=== PATIENT | female | born 1945 | race Caucasian/White ===

== ENCOUNTER 2016-07-12 15:22 | Inpatient (IN) ==
[2012-12-30 11:41] VITALS: BP 129/65; TEMP 98.3
[2016-07-12] MEDS ORDERED: ZOFRAN 4 MG/2 ML IVP PRN ×2 (15:46→16:14)
[2016-07-12 16:04] VITALS: BMI 30.9
[2016-07-12 16:11] LABS: BASOPHILS % (AUTO) 0.6 % (0.0-3.0); EOSINOPHILS # (AUTO) 0.1 K/ul (0.0-0.7); EOSINOPHILS % (AUTO) 1.5 % (0.0-7.0); HEMATOCRIT 38.7 % (37.0-47.0); HEMOGLOBIN 12.4 g/dl (12.0-16.0); IMMATURE GRANULOCYTE % (AUTO) 0.2 % (0.0-5.0); LYMPHOCYTES # (AUTO) 1.9 K/uL (0.60-3.4); LYMPHOCYTES % (AUTO) 40.7 (10.0-50.0); MEAN CORPUSCULAR HEMOGLOBIN 28.1 pg (27.0-31.0); MEAN CORPUSCULAR VOLUME 87.8 fl (81.0-99.0); MONOCYTES # (AUTO) 0.4 K/uL (0.4-2.0); MONOCYTES % (AUTO) 8.1 (0-10); NEUTROPHILS # (AUTO) 2.3 K/ul (2.0-6.9); NEUTROPHILS % (AUTO) 48.9; PLATELET COUNT 303 10^3/uL (140-440); RED BLOOD COUNT 4.41 10^6/ul (4.20-5.40); WHITE BLOOD COUNT 4.67 K/ul (4.6-10.2)
[2016-07-12] MEDS: DEXTROSE 5%-1/2NS IV SOLUTION 1,000 ML IV SCH (16:21)
[2016-07-12] MEDS: FLAGYL 500 MG/100 ML 500 MG in PREMIX 100 ML NS 1 BAG IV SCH ×2 (16:22→21:24)
[2016-07-12 16:29] LABS: ALBUMIN 4.2 g/dL (3.4-5.0); ALBUMIN/GLOBULIN RATIO 1.24; ANION GAP 15.7; BILIRUBIN,TOTAL 0.39 mg/dL (0.00-1.20); BUN/CREATININE RATIO 19.8; CALCIUM 9.5 mg/dL (8.2-10.2); CREATININE 1.01 mg/dL (0.60-1.30); POTASSIUM 3.7 mmol/L (3.5-5.10); TOTAL PROTEIN 7.6 g/dL (5.8-8.1)
[2016-07-12] MEDS: PROTONIX IV IVP SCH (16:50)
[2016-07-12] MEDS: TORADOL IVP SCH ×2 (16:52→22:01)
--- NOTE | 2016-07-12 17:20 | DI ---
EXAM: Chest two views HISTORY: Pain FINDINGS: PA and lateral views of the chest were obtained and demonstrates the lungs to be well exp anded and appear clear. There is no evidence of focal infiltrate, consolidate nor concerning pulmon wanda nodule or mass. Heart, pleura, velia, mediastinum, and pulmonary vascular lung markings appeared normal. The osseous structures are without significant abnormality. IMPRESSION: No active cardiac or pulmonary disease. No significant changes compared to the prior s tudy dated 01/20/2015. Again noted is evidence for a prior lower cervical spinal fusion.
--- NOTE | 2016-07-12 17:36 | CT ---
EXAM: CT of the abdomen and pelvis with IV contrast HISTORY: Abdominal pain COMPARISON: 06/17/2016, 01/29/2013 TECHNIQUE: CT of the abdomen and pelvis with IV contrast. FINDINGS: There is mild bilateral lower lobe dependent atelectasis. A 7 - 8 mm left lower lobe subpleural pul monary nodule is seen which is stable dating back to at least 05/28/2008. The liver, spleen, adrenals and pancreas enhance normally. The gallbladder has been removed. Bilate ral renal peripelvic cysts are again seen without significant interval change. A prominent probable phleboliths is again seen adjacent to the right ureter. No abnormal small bowel dilation is seen. Sigmoid diverticulosis is seen. There is mild wall thick ening of the sigmoid colon without significant adjacent fat stranding. The uterus has been removed. There is calcified atherosclerotic plaque of the aorta and iliac arteries. No free air or free fl uid is seen. There is multilevel degenerative disc disease, up to moderate at L5-S1 IMPRESSION: Sigmoid diverticulosis. Mild sigmoid colon wall thickening which may be secondary to underdistensio n. No definite adjacent inflammatory changes. Bilateral renal peripelvic cysts. Status post hysterectomy and cholecystectomy. Other chronic and incidental findings as described above.
[2016-07-12] MEDS: LOVENOX SUBCUT SCH (21:24)
[2016-07-13] MEDS: DEXTROSE 5%-1/2NS IV SOLUTION 1,000 ML IV SCH ×3 (03:13→23:00)
[2016-07-13] MEDS: FLAGYL 500 MG/100 ML 500 MG in PREMIX 100 ML NS 1 BAG IV SCH ×3 (05:05→20:23)
[2016-07-13] MEDS: PRILOSEC PO SCH (05:35)
[2016-07-13 06:50] LABS: BASOPHILS % (AUTO) 0.6 % (0.0-3.0); EOSINOPHILS # (AUTO) 0.1 K/ul (0.0-0.7); EOSINOPHILS % (AUTO) 1.5 % (0.0-7.0); HEMOGLOBIN 10.8 g/dl (12.0-16.0); LYMPHOCYTES # (AUTO) 1.7 K/uL (0.60-3.4); LYMPHOCYTES % (AUTO) 50.9 (10.0-50.0); MEAN CORPUSCULAR HEMOGLOBIN 28.6 pg (27.0-31.0); MEAN CORPUSCULAR HGB CONC 32.7 (31.8-35.4); MEAN CORPUSCULAR VOLUME 87.5 fl (81.0-99.0); MONOCYTES # (AUTO) 0.3 K/uL (0.4-2.0); MONOCYTES % (AUTO) 9.4 (0-10); NEUTROPHILS # (AUTO) 1.3 K/ul (2.0-6.9); NEUTROPHILS % (AUTO) 37.6; PLATELET COUNT 256 10^3/uL (140-440); RED BLOOD COUNT 3.77 10^6/ul (4.20-5.40)
[2016-07-13 07:12] LABS: ALBUMIN 3.5 g/dL (3.4-5.0); ALBUMIN/GLOBULIN RATIO 1.3; ANION GAP 8.7; BILIRUBIN,TOTAL 0.46 mg/dL (0.00-1.20); BUN/CREATININE RATIO 21.87; CALCIUM 8.6 mg/dL (8.2-10.2); CREATININE 0.96 mg/dL (0.60-1.30); POTASSIUM 3.7 mmol/L (3.5-5.10); TOTAL PROTEIN 6.2 g/dL (5.8-8.1)
[2016-07-13] MEDS ORDERED: NON-FORMULARY MEDICATION (Amlodipine Besylate [Amlodipine Besylate] 2.5 MG) PO SCH ×22 (09:00)
[2016-07-13] MEDS ORDERED: NON-FORMULARY MEDICATION (Losartan/Hydrochlorothiazide [Losartan-Hctz 100-25 Mg Tab] 1 EAC PO SCH (09:00)
[2016-07-13] MEDS: PROTONIX IV IVP SCH (09:12)
[2016-07-13] MEDS: GLUCOPHAGE PO SCH ×2 (09:13→09:21)
[2016-07-13] MEDS: ASPIRIN CHEWABLE PO SCH (09:13)
[2016-07-13] MEDS: HYZAAR 50-12.5 MG TAB PO SCH (09:13)
[2016-07-13] MEDS: TORADOL IVP SCH ×2 (09:13→20:27)
[2016-07-13] MEDS: NORVASC PO SCH (09:13)
[2016-07-13] MEDS: NON-FORMULARY MEDICATION (Fenofibrate,Micronized [Fenofibrate] 134 MG) PO SCH ×22 (09:14)
[2016-07-13] MEDS: NON-FORMULARY MEDICATION (Flaxseed Oil [Flaxseed Oil] 1,000 MG) PO SCH (09:14)
[2016-07-13 14:28] LABS: BILIRUBIN,URINE Negative (NEGATIVE); KETONES,URINE Negative (NEGATIVE); LEUKOCYTE ESTERASE ,URINE 1+ (NEGATIVE); NITRITE,URINE Negative (NEGATIVE); PH,URINE 5.5 (5-9); PROTEIN,URINE Negative (NEGATIVE); URINE, BLOOD Negative (NEGATIVE)
[2016-07-13 14:31] LABS: ADD URINE MICROSCOPIC YES
[2016-07-13] MEDS: LOVENOX SUBCUT SCH (21:11)
[2016-07-14 05:16] LABS: BASOPHILS % (AUTO) 0.8 % (0.0-3.0); EOSINOPHILS # (AUTO) 0.1 K/ul (0.0-0.7); EOSINOPHILS % (AUTO) 2.5 % (0.0-7.0); HEMATOCRIT 32.5 % (37.0-47.0); HEMOGLOBIN 10.4 g/dl (12.0-16.0); LYMPHOCYTES # (AUTO) 1.3 K/uL (0.60-3.4); LYMPHOCYTES % (AUTO) 37.3 (10.0-50.0); MEAN CORPUSCULAR VOLUME 87.6 fl (81.0-99.0); MONOCYTES # (AUTO) 0.4 K/uL (0.4-2.0); MONOCYTES % (AUTO) 9.7 (0-10); NEUTROPHILS # (AUTO) 1.8 K/ul (2.0-6.9); NEUTROPHILS % (AUTO) 49.7; PLATELET COUNT 236 10^3/uL (140-440); RED BLOOD COUNT 3.71 10^6/ul (4.20-5.40); WHITE BLOOD COUNT 3.59 K/ul (4.6-10.2)
[2016-07-14] MEDS: FLAGYL 500 MG/100 ML 500 MG in PREMIX 100 ML NS 1 BAG IV SCH ×2 (05:34→12:32)
[2016-07-14] MEDS: PRILOSEC PO SCH (05:34)
[2016-07-14 05:37] LABS: ALBUMIN 3.4 g/dL (3.4-5.0); ALBUMIN/GLOBULIN RATIO 1.42; ANION GAP 11.6; BILIRUBIN,TOTAL 0.42 mg/dL (0.00-1.20); BUN/CREATININE RATIO 13.97; CALCIUM 8.5 mg/dL (8.2-10.2); CREATININE 0.93 mg/dL (0.60-1.30); POTASSIUM 3.6 mmol/L (3.5-5.10); TOTAL PROTEIN 5.8 g/dL (5.8-8.1)
[2016-07-14] MEDS: NON-FORMULARY MEDICATION (Fenofibrate,Micronized [Fenofibrate] 134 MG) PO SCH ×22 (08:39)
[2016-07-14] MEDS: NON-FORMULARY MEDICATION (Flaxseed Oil [Flaxseed Oil] 1,000 MG) PO SCH (08:40)
[2016-07-14] MEDS: ASPIRIN CHEWABLE PO SCH (09:08)
[2016-07-14] MEDS: HYZAAR 50-12.5 MG TAB PO SCH (09:09)
[2016-07-14] MEDS: PROTONIX IV IVP SCH (09:11)
[2016-07-14] MEDS: NORVASC PO SCH (09:11)
[2016-07-14] MEDS: TORADOL IVP SCH ×2 (09:13→20:22)
[2016-07-14] MEDS: DEXTROSE 5%-1/2NS IV SOLUTION 1,000 ML IV SCH (09:55)
[2016-07-14] MEDS: LOVENOX SUBCUT SCH (22:03)
[2016-07-14] MEDS: FLAGYL PO SCH (22:04)
[2016-07-15 05:12] LABS: BASOPHILS % (AUTO) 0.6 % (0.0-3.0); EOSINOPHILS # (AUTO) 0.1 K/ul (0.0-0.7); EOSINOPHILS % (AUTO) 2.6 % (0.0-7.0); HEMATOCRIT 30.8 % (37.0-47.0); HEMOGLOBIN 10.1 g/dl (12.0-16.0); IMMATURE GRANULOCYTE % (AUTO) 0.3 % (0.0-5.0); LYMPHOCYTES # (AUTO) 1.7 K/uL (0.60-3.4); LYMPHOCYTES % (AUTO) 49.7 (10.0-50.0); MEAN CORPUSCULAR HEMOGLOBIN 28.7 pg (27.0-31.0); MEAN CORPUSCULAR HGB CONC 32.8 (31.8-35.4); MEAN CORPUSCULAR VOLUME 87.5 fl (81.0-99.0); MONOCYTES # (AUTO) 0.4 K/uL (0.4-2.0); MONOCYTES % (AUTO) 10.1 (0-10); NEUTROPHILS # (AUTO) 1.3 K/ul (2.0-6.9); NEUTROPHILS % (AUTO) 36.7; PLATELET COUNT 221 10^3/uL (140-440); RED BLOOD COUNT 3.52 10^6/ul (4.20-5.40); WHITE BLOOD COUNT 3.48 K/ul (4.6-10.2)
[2016-07-15] MEDS: PRILOSEC PO SCH (05:34)
[2016-07-15 05:35] LABS: ALBUMIN 3.3 g/dL (3.4-5.0); ALBUMIN/GLOBULIN RATIO 1.32; BILIRUBIN,TOTAL 0.29 mg/dL (0.00-1.20); BUN/CREATININE RATIO 10.81; CALCIUM 8.6 mg/dL (8.2-10.2); CREATININE 1.11 mg/dL (0.60-1.30); TOTAL PROTEIN 5.8 g/dL (5.8-8.1)
[2016-07-15] MEDS: ASPIRIN CHEWABLE PO SCH (09:29)
[2016-07-15] MEDS: GLUCOPHAGE PO SCH (09:30)
[2016-07-15] MEDS: FLAGYL PO SCH (09:30)
[2016-07-15] MEDS: HYZAAR 50-12.5 MG TAB PO SCH (09:31)
[2016-07-15] MEDS: TORADOL IVP SCH (09:32)
[2016-07-15] MEDS: NORVASC PO SCH (09:32)
[2016-07-15] MEDS: PROTONIX IV IVP SCH (09:41)
[2016-07-15] MEDS: NON-FORMULARY MEDICATION (Flaxseed Oil [Flaxseed Oil] 1,000 MG) PO SCH (09:42)
[2016-07-15] MEDS: NON-FORMULARY MEDICATION (Fenofibrate,Micronized [Fenofibrate] 134 MG) PO SCH ×22 (09:42)
[2016-07-15] MEDS ORDERED: ZOFRAN 4 MG/2 ML IVP STA (09:58)
[2016-07-15 11:15] VITALS: BP 112/60; TEMP 97.9
--- NOTE | 2016-07-15 12:12 | CM.DICTOOL ---
ADMISSION: 07/12/16 15:22 DISCHARGE: 07/15/16 DATE OF SERVICE: 07/15/16 FINAL DIAGNOSIS ACUTE DIVERTICULITIS HISTORY OF DIVERTICULITIS (06/20/16 AND 12/2012) HYPERTENSION BRADYCARDIA DYSLIPIDEMIA DM, TYPE 2 GERD ANEMIA HIATAL HERNIA OBESITY, BMI 30 DDD L5-S1 CHOLECYSTECTOMY HYSTERECTOMY C-SPINE FUSION LAST VITALS Temp Pulse Resp BP Pulse Ox 97.9 F 58 L 20 112/60 96 07/15/16 10:00 07/15/16 10:00 07/15/16 10:00 07/15/16 10:00 07/15/16 10:00 ACTIVE MEDICATIONS Amlodipine Besylate (Norvasc) 2.5 mg PO DAILY [facility] Last Admin: 07/15/16 09:32 Dose: 2.5 mg Aspirin (Aspirin Chewable) 81 mg PO DAILYWM [facility] Last Admin: 07/15/16 09:29 Dose: 81 mg HCTZ/Losartan Potassium (Hyzaar 50-12.5 Mg Tab) 2 tab PO DAILY [facility] Last Admin: 07/15/16 09:31 Dose: 2 tab Metformin HCl (Glucophage) 500 mg PO DAILYWM [facility] Last Admin: 07/15/16 09:30 Dose: 500 mg Metronidazole (Flagyl) 500 mg PO TID [facility] Last Admin: 07/15/16 09:30 Dose: 500 mg Fenofibrate,Micronized [Fenofibrate] 134 mg PO DAILY [facility] Last Admin: 07/15/16 09:42 Dose: Not Given Flaxseed Oil [Flaxseed Oil] 1,000 mg PO DAILY [facility] Last Admin: 07/15/16 09:42 Dose: Not Given Omeprazole (Prilosec) 20 mg PO QDAC [facility] Last Admin: 07/15/16 05:34 Dose: 20 mg Ondansetron HCl (Zofran 4 Mg/2 Ml) 4 mg PO Q12H PRN PRN Reason: Nausea / Vomiting Last Admin: 07/14/16 18:29 Dose: 4 mg Pantoprazole Sodium (Protonix) 40 mg PO DAILY [facility] Last Admin: 07/15/16 09:41 Dose: 40 mg DENOTES MEDICATIONS ADDED DURING THIS STAY THAT WILL BE CONTINUED AT DISCHARGE ALLERGIES atorvastatin calcium [From Lipitor] Adverse Reaction (Verified 06/15/16 08:37) cimetidine [From Tagamet] Adverse Reaction (Verified 06/15/16 08:37) cimetidine HCl [From Tagamet] Adverse Reaction (Verified 06/15/16 08:37) ciprofloxacin Adverse Reaction (Verified 06/15/16 08:37) fenofibrate nanocrystallized [From Tricor] Adverse Reaction (Verified 06/15/16 08:37) fenofibrate,micronized [From Tricor] Adverse Reaction (Verified 06/15/16 08:37) gatifloxacin [From Tequin] Adverse Reaction (Verified 06/15/16 08:37) ibuprofen Adverse Reaction (Verified 06/15/16 08:37) minocycline HCl [From Minocin] Adverse Reaction (Verified 06/15/16 08:37) nitrofurantoin macrocrystal [From Macrodantin] Adverse Reaction (Verified 08:37) olmesartan medoxomil [From Benicar] Adverse Reaction (Verified 06/15/16 08:37) Penicillins Adverse Reaction (Verified 06/15/16 08:37) rosuvastatin calcium [From Crestor] Adverse Reaction (Verified 06/15/16 08:37) simvastatin Adverse Reaction (Verified 06/15/16 08:37) Skin Cleanser Combination No.4 [From Minocin] Adverse Reaction (Verified 08:37) Sulfa (Sulfonamide Antibiotics) Adverse Reaction (Verified 06/15/16 08:37) VIBRICILLEN Adverse Reaction (Uncoded 12/27/12 16:15) VICTRIN Adverse Reaction (Uncoded 12/27/12 16:15) NEW PRESCRIPTIONS: FLAGYL 500 MG, TAKE ONE TABLET BY MOUTH THREE TIMES DAILY FOR 5 (FIVE) DAYS ONLY ZOFRAN 4 MG, TAKE ONE TABLET BY MOUTH NEEDED FOR NAUSEA/VOMITING UP TO BUT NO MORE THAN EVERY 12 HOURS SMOKING: NONSMOKER DISEASE SPECIFIC EDUCATION: DIVERTICULITIS DIET ACTIVITY HOME MEDICATIONS NEW PRESCRIPTIONS FOLLOW UP LAB REVIEW: 07/15/16 05:08 07/15/16 05:08 07/15/16 05:08: WBC 3.48 L, RBC 3.52 L, Hgb 10.1 L, Hct 30.8 L, MCV 87.5, MCH 28.7, MCHC 32.8, RDW Coeff of Linda 13.4, Plt Count 221, Immature Gran % (Auto) 0.3, Neut % (Auto) 36.7, Lymph % (Auto) 49.7, Garza % (Auto) 10.1 H, Eos % (Auto ) 2.6, Baso % (Auto) 0.6, Immature Gran # (Auto) 0.0, Neut # 1.3 L, Lymph # 1.7 , Garza # 0.4, Eos # 0.1, Baso # 0.0, Sodium 141, Potassium 4.0, Chloride 107, Carbon Dioxide 26, Anion Gap 12.0, BUN 12, Creatinine 1.11, Estimated GFR (MDRD ) 48.00, BUN/Creatinine Ratio 10.81, Glucose 100, Calcium 8.6, Total Bilirubin 0.29, AST 37, ALT 25, Alkaline Phosphatase 37 L, Total Protein 5.8, Albumin 3.3 L, Globulin 2.5, Albumin/Globulin Ratio 1.32 PLAN: DISCHARGE HOME TODAY. RETURN TO SEE DR. REHMAN IN 7-10 DAYS. PLEASE PHONE TO SCHEDULE YOUR APPOINTMENT [phone] RESUME YOUR HOME MEDICATIONS PER LIST PROVIDED BY THE NURSING STAFF NEW PRESCRIPTIONS: FLAGYL 500 MG, TAKE ONE TABLET BY MOUTH THREE TIMES DAILY FOR 5 (FIVE) DAYS ONLY ZOFRAN 4 MG, TAKE ONE TABLET BY MOUTH NEEDED FOR NAUSEA/VOMITING UP TO BUT NO MORE THAN EVERY 12 HOURS ACTIVITY: GET PLENTY OF REST AT HOME. GRADUALLY INCREASE YOUR ACTIVITY LEVEL ACCORDING TO YOUR TOLERATION DIET: DIVERTICULITIS DIET (SEE INSTRUCTIONS PROVIDED BY THE NURSING STAFF) SUMMARY: THE PATIENT IS ALERT AND ORIENTED X3. SHE CURRENTLY RESIDES AT HOME ALONE. SHE HAS BEEN INDEPENDENT WITH ADL'S. SHE DESIRES TO RETURN HOME AT DISCHARGE. SHE REQUIRES NO ASSISTANCE FOR AMBULATING. SHE HAS NO DME, NO HOME HEALTH OR HOMEMAKING SERVICES. HER SKIN TURGOR IS INTACT AND WITHOUT DECUBITUS ULCERS AT DISCHARGE. SHE IS ABLE TO TOLERATE A REGULAR DIET. SHE IS ABLE TO MOVE HER BOWELS TO HAVE REGULAR BOWEL MOVEMENTS. EMBER REHMAN M.D.
--- NOTE | 2016-07-16 11:59 | HP ---
DATE OF SERVICE: 07/12/16 REASON FOR HOSPITALIZATION: Abdominal pain both lower quadrants times three days. HISTORY OF PRESENT ILLNESS: This is a 70-year-old female with complaint of abdominal pain in both lower quadrants times three days. She has a history of diverticulitis. The pain is moderate to severe with nausea. The patient has not eaten for 24 hours and even hurts to drink water. No fever, no chills. No symptoms of CHF. REVIEW OF SYSTEMS: CONSTITUTIONAL: Fatigue. No fever. HEENT: No sinus drainage, no sore throat. RESPIRATORY: No cough. No hemoptysis. CARDIOVASCULAR: No atypical chest pain for coronary artery disease. No angina , CHF symptoms, palpitations or shortness of breath. GASTROINTESTINAL: Abdominal pain. No melena. No GERD. GENITOURINARY: No hematuria, no polyuria. LABORER VINEYARD: Dizziness. No blackout, no headache, no double vision. MUSCULOSKELETAL: No osteoarthritis pain, no joint swelling. ENDOCRINE: No weight loss, no weight gain. SKIN: Dry. No rash. PSYCHIATRIC: Anxious. No depression, no suicidal thoughts, no homicidal thoughts. PAST MEDICAL HISTORY: 1. Hypertension 2. Hyperglycemia 3. Dyslipidemia 4. Fatty liver 5. Diabetes mellitus Type 2 6. Metabolic syndrome PAST SURGICAL HISTORY: 1. C-spine surgery 2. Gallbladder 3. Hysterectomy 4. Bilateral feet/bunion SOCIAL HISTORY: Nonsmoker. . No alcohol use. Retired. FAMILY HISTORY: Father . Mother . MEDICATIONS: 1. Omeprazole (Prilosec) 20 mg p.o. q.d a.c. 2. Aspirin 81 mg p.o. daily 3. Fenofibrate 134 mg p.o. daily 4. Flaxseed Oil 1000 mg p.o. daily 5. Amlodipine 2.5 mg p.o. daily 6. Metformin 500 mg p.o. daily with meal 7. Losartan/Hydrochlorothiazide 100-25 mg one p.o. daily PHYSICAL EXAMINATION: V/S: Pulse 84, BP 120/60, temperature 98.8, 02 sat 96%, weight 194.4. Height 5' 7", BMI 30.4. GENERAL APPEARANCE: Oriented times three. HEENT: Normal. Skin is dry. NECK: No JVP, no bruits. RESPIRATORY: Lungs are clear. CARDIOVASCULAR: S1, S2, no S3, no murmurs. No cyanosis, clubbing. No ascites. GI/ABDOMEN: No rebound tenderness both lower quadrants. Bowel sounds are active. EXTREMITIES: No edema, pulses +1, equal. LABORER VINEYARD: Deep tendon reflexes, sensory, motor and gait all normal. RECTAL/PELVIC: Colonoscopy 12/13 Dr. Tee, appointment 08/25/16. Pelvic: Partial hysterectomy. Mammogram 07/22 [facility]. Foot care discussed. Colocare refused. ASSESSMENT: 1. ACUTE DIVERTICULITIS 2. HYPERTENSION 3. HYPERGLYCEMIA 4. HISTORY OF DIVERTICULOSIS 5. DYSLIPIDEMIA 6. METABOLIC SYNDROME 7. FATTY LIVER 8. C-SPINE SURGERY 9. DIABETES MELLITUS TYPE 2 PLAN: 1. Admit regular 2. NPO 3. 1000 cc D5 / NS 8 hourly ALISHA 4. CBC, CMP today and q.a.m. 5. CT scan of abdomen and pelvis with contrast today 6. Flagyl 500 mg IV now and q.8hr 7. Toradol 30 mg IV now and q.12hr 8. Zofran 4 mg IV now and 8 hourly for nausea 9. UA and culture and sensitivity 10. EKG today 11. Telemetry times 24 hours 12. Protonix 40 mg IV now and q.a.m. 13. Chest x-ray today 14. Continue medications 15. Lovenox 30 mg SQ at bedtime daily TIME SPENT: More than 70 minutes. MTDD
--- NOTE | 2016-07-17 14:54 | PN ---
DATE OF SERVICE: 07/14/16 SUBJECTIVE: The patient is a 70 year old white female hospitalized with acute diverticulitis. The patient looks a lot better and she is cheerful and able to eat soft diet and had BM no diarrhea. Practically no abdominal pain but is still weak. REVIEW OF SYSTEMS: CONSTITUTIONAL: No night sweats. No fatigue, malaise, lethargy. No fever or chills. HEENT: Eyes: No visual changes. No eye pain. No eye discharge. ENT: No runny nose. No epistaxis. No sinus pain. No sore throat. No odynophagia. No congestion. RESPIRATORY: No cough, no congestion. No hemoptysis. CARDIOVASCULAR: No angina symptoms. No CHF symptoms. No atypical chest pain for CAD. No palpitations. No shortness of breath. GASTROINTESTINAL: No abdominal pain. No nausea or vomiting. No diarrhea or constipation. No hematemesis. No hematochezia. GENITOURINARY: No urgency. No frequency. No dysuria. No hematuria. No obstructive symptoms. No discharge. No pain. No significant abnormal bleeding. MUSCULOSKELETAL: No musculoskeletal pain; no joint swelling. NEUROLOGICAL: No headache. No neck pain. No syncope. No seizures. No dizziness. PSYCHIATRIC: Not anxious. No depression. No suicidal thoughts. No homicidal thoughts. SKIN: No rash. No lesions. No wounds. ENDOCRINE: No unexplained weight loss. No weight gain. HEMATOLOGIC/LYMPHATIC: No anemia. No purpura. No petechiae. No prolonged or excessive bleeding. No palpable lymph nodes. PHYSICAL EXAMINATION: GENERAL: The patient is oriented to time, place and person. VITAL SIGNS: Temperature 97.7, pulse 60, respiratory rate 16, blood pressure 117/66 and pulse ox 96%. HEENT: Head normocephalic, atraumatic. Eyes: Extraocular muscles are intact. Pupils are equal, round and reactive to light and accommodation. Ears: No lesions. Nose appeared normal. Throat: No exudate or erythema. NECK: Supple. No JVD, no carotid bruit. No lymphadenopathy or thyromegaly. LUNGS: Decreased breath sounds but clear to auscultation. Percussion note normal. Chest symmetrical. HEART: S1, S2, no S3. No murmurs. No cyanosis or clubbing. No ascites. Pulses: Dorsalis pedis and posterior tibial pulses +1 to +2 both sides. ABDOMEN: Soft. Nontender. Bowel sounds active. No CVA tenderness. No mass felt. EXTREMITIES: No edema. Full range of motion of all extremities, equal. NEUROLOGIC: No focal deficit. Cranial nerves II through XII are grossly intact. No headache, no double vision or headache. SKIN: Not dry. Intact. Turgor - normal. LYMPHATIC: No palpable lymph nodes/no lymphedema. MUSCULOSKELETAL: Normal joints with no swelling. Muscle tone is normal. LABS: hgb 10.4, hct 32, WBC 3,500 normal differential, creatinine 0.9, BUN 13, potassium 3.6 and glucose 129. ASSESSMENT: 1. Acute diverticulitis, clinically seems to have resolved. PLAN: 1. Continue Flagyl in the form of PO 2. DC IV Fluids and IV Flagyl 3. The patient is going to be regular diet. 4. The patient is advised to walk. CONDITION: Stable TIME SPENT: More than 30 minutes. Plan and coordination of the patient's care discussed in the presence of nurse. ANA M
--- NOTE | 2016-07-18 08:13 | PN ---
DATE OF SERVICE: 07/13/16 SUBJECTIVE: The patient is a 70 year old white female hospitalized with acute diverticulitis type of symptoms. A CT scan didn't show any way of colitis but did had inflammation of the lining of the colon with diverticulosis of sigmoid colon. The patient has been feeling better and the pain in much less then before. The patient has been on Flagyl. REVIEW OF SYSTEMS: CONSTITUTIONAL: No night sweats. No fatigue, malaise, lethargy. No fever or chills. HEENT: Eyes: No visual changes. No eye pain. No eye discharge. ENT: No runny nose. No epistaxis. No sinus pain. No sore throat. No odynophagia. No congestion. RESPIRATORY: No cough, no congestion. No hemoptysis. CARDIOVASCULAR: No angina symptoms. No CHF symptoms. No atypical chest pain for CAD. No palpitations. No shortness of breath. No PND. No orthopnea. GASTROINTESTINAL: No abdominal pain. No nausea or vomiting. No diarrhea or constipation. No hematemesis. No hematochezia. GENITOURINARY: No urgency. No frequency. No dysuria. No hematuria. No obstructive symptoms. No discharge. No pain. No significant abnormal bleeding. MUSCULOSKELETAL: No musculoskeletal pain; no joint swelling. NEUROLOGICAL: No headache. No neck pain. No syncope. No seizures. No dizziness. PSYCHIATRIC: Not anxious. No depression. No suicidal thoughts. No homicidal thoughts. SKIN: No rash. No lesions. No wounds. ENDOCRINE: No unexplained weight loss. No weight gain. HEMATOLOGIC/LYMPHATIC: No anemia. No purpura. No petechiae. No prolonged or excessive bleeding. No palpable lymph nodes. PHYSICAL EXAMINATION: GENERAL: The patient is oriented to time, place and person. VITAL SIGNS: Temperature 96.7, pulse 57, respiratory 20, blood pressure 102/57 and pulse ox 97%. HEENT: Head normocephalic, atraumatic. Eyes: Extraocular muscles are intact. Pupils are equal, round and reactive to light and accommodation. Ears: No lesions. Nose appeared normal. Throat: No exudate or erythema. NECK: Supple. No JVD, no carotid bruit. No lymphadenopathy or thyromegaly. LUNGS: Decreased breath sounds but clear to auscultation. Percussion note normal. Chest symmetrical. HEART: S1, S2, no S3. No murmurs. No cyanosis or clubbing. No ascites. Pulses: Dorsalis pedis and posterior tibial pulses +1 to +2 both sides. ABDOMEN: Soft. Maybe some tenderness in the bilateral right and left lower quadrants. Bowel sounds active. No CVA tenderness. No mass felt. No rebound tenderness. EXTREMITIES: No edema. Full range of motion of all extremities, equal. NEUROLOGIC: No focal deficit. Cranial nerves II through XII are grossly intact. No headache, no double vision or headache. SKIN: Not dry. Intact. Turgor - normal. LYMPHATIC: No palpable lymph nodes/no lymphedema. MUSCULOSKELETAL: Normal joints with no swelling. Muscle tone is normal. LABS: Hgb 10.8, hct 33, WBC 3,400 normal differential, creatinine 0.9, BUN 21 and potassium 3.7. ASSESSMENT: 1. Acute diverticulitis, resolving 2. Dehydration, seems to be resolving PLAN: 1. Continue Flagyl 2. Will advance the diet to full liquid but no dairy products 3. Diet for the Diverticulosis of the colon and diverticulitis discussed. 4. The patient had a BM today CONDITION: Stable. TIME SPENT: More than 30 minutes. Plan and coordination of the patient's care discussed in the presence of nurse. ANA M
--- NOTE | 2016-07-18 12:41 | PN ---
DATE OF SERVICE: SUBJECTIVE: The patient is a 70 year old white female hospitalized with acute diverticulitis. The patient's condition has steadily improved. She is eating regular diet and had normal bowel movement and no abdominal pain. REVIEW OF SYSTEMS: CONSTITUTIONAL: No night sweats. No fatigue, malaise, lethargy. No fever or chills. HEENT: Eyes: No visual changes. No eye pain. No eye discharge. ENT: No runny nose. No epistaxis. No sinus pain. No sore throat. No odynophagia. No congestion. RESPIRATORY: No cough, no congestion. No hemoptysis. CARDIOVASCULAR: No angina symptoms. No CHF symptoms. No atypical chest pain for CAD. No palpitations. No shortness of breath. GASTROINTESTINAL: No abdominal pain. No nausea or vomiting. No diarrhea or constipation. No hematemesis. No hematochezia. Appetite has improved. GENITOURINARY: No urgency. No frequency. No dysuria. No hematuria. No obstructive symptoms. No discharge. No pain. No significant abnormal bleeding. MUSCULOSKELETAL: No musculoskeletal pain; no joint swelling. NEUROLOGICAL: No headache. No neck pain. No syncope. No seizures. No dizziness. PSYCHIATRIC: Not anxious. No depression. No suicidal thoughts. No homicidal thoughts. SKIN: No rash. No lesions. No wounds. ENDOCRINE: No unexplained weight loss. No weight gain. HEMATOLOGIC/LYMPHATIC: No anemia. No purpura. No petechiae. No prolonged or excessive bleeding. No palpable lymph nodes. PHYSICAL EXAMINATION: GENERAL: The patient is oriented to time, place and person. VITAL SIGNS: Temperature 97.6, pulse 56, respiratory rate 18, blood pressure 112/63 and pulse ox 94%. HEENT: Head normocephalic, atraumatic. Eyes: Extraocular muscles are intact. Pupils are equal, round and reactive to light and accommodation. Ears: No lesions. Nose appeared normal. Throat: No exudate or erythema. NECK: Supple. No JVD, no carotid bruit. No lymphadenopathy or thyromegaly. LUNGS:Decreased breath sounds but clear to auscultation. Percussion note normal. Chest symmetrical. HEART: S1, S2, no S3. No murmurs. No cyanosis or clubbing. No ascites. Pulses: Dorsalis pedis and posterior tibial pulses +1 to +2 both sides. ABDOMEN: Soft. Nontender. Bowel sounds active. No CVA tenderness. No mass felt. EXTREMITIES: No edema. Full range of motion of all extremities, equal. NEUROLOGIC: No focal deficit. Cranial nerves II through XII are grossly intact. No headache, no double vision or headache. SKIN: Not dry. Intact. Turgor - normal. LYMPHATIC: No palpable lymph nodes/no lymphedema. MUSCULOSKELETAL: Normal joints with no swelling. Muscle tone is normal. ASSESSMENT: 1. Acute diverticulitis, resolved PLAN: 1. Continue Flagyl 2. Continue the rest of the medication as before 3. Diet for diverticulosis discussed. CONDITION: Stable TIME SPENT: More than 30 minutes. Plan and coordination of the patient's care discussed in the presence of nurse. ANA M
--- NOTE | 2016-07-19 07:07 | DS ---
DATE OF SERVICE: 07/15/16 FINAL DIAGNOSIS: 1. ACUTE DIVERTICULITIS 2. HISTORY OF DIVERTICULITIS (06/20/16 AND 12/24/12) 3. HYPERTENSION 4. BRADYCARDIA 5. DYSLIPIDEMIA 6. DIABETES MELLITUS TYPE 2 7. GERD 8. ANEMIA 9. HIATAL HERNIA 10. OBESITY, BMI 30 11. DDD L5-S1 12. CHOLECYSTECTOMY 13. HYSTERECTOMY 14. C-SPINE FUSION DISCHARGE INSTRUCTIONS: 1. Discharge home today. 2. Followup appointment with Dr. Ramirez in 7 to 10 days. Please phone to schedule appointment. ([phone]). 3. Resume home medications as per list provided by nursing staff. MEDICATIONS AT DISCHARGE: 1. Omeprazole/Prilosec 20 mg p.o. q.d a.c. 2. Aspirin 81 mg p.o. daily 3. Fenofibrate 134 mg p.o. daily 4. Flaxseed Oil 1,000 mg p.o. daily 5. Amlodipine 2.5 mg p.o. daily 6. Metformin 500 mg p.o. daily with meal 7. Losartan/Hydrochlorothiazide one each p.o. daily 8. Metronidazole/Flagyl 500 mg p.o. q.8hr 9. Ondansetron/Zofran 4 mg p.o.b.i.d. p.r.n. NEW PRESCRIPTIONS: 1. Flagyl 500 mg take one tablet by mouth three times daily for 5 days only 2. Zofran 4 mg take one tablet by mouth as needed for nausea/vomiting up to but no more than every 12 hours DIET INSTRUCTIONS: Diverticulitis diet (see instructions provided by the nursing staff) ACTIVITY: Get plenty of rest at home. Gradually increase your activity level according to your toleration. SMOKING: Nonsmoker DISEASE SPECIFIC EDUCATION: 1. Diverticulitis 2. Diet 3. Activity 4. Home medications 5. New prescriptions 6. Follow up HOSPITAL COURSE: 70-year-old white female hospitalized with abdominal pain bilateral, had acute diverticulitis. The patient's condition improved with IV fluids, NPO and Flagyl IV. The patient on the second day was started on full liquid diet without dairy products and then she was advanced to soft and regular diet. The patient' s bowel movements are normal. Appetite is normal. She doesn't have any abdominal pain. She was discharged on Flagyl to be taken p.o. for five days. CONDITION AT TIME OF DISCHARGE: Stable. 5/18She was also explained about the diet in detail. TIME SPENT: More than 60 minutes. MTDD
== END 2016-07-15 13:34 | disposition home or self-care (01) | DRG 392 ==
LOC: MEDSURG B 15:22
PROVIDERS: ADMIT Internal Medicine; ATTEND Internal Medicine
DX: K57.32 Diverticulitis of large intestine without perforation or abscess without bleeding (principal); I10 Essential (primary) hypertension; E78.5 Hyperlipidemia, unspecified; K76.0 Fatty (change of) liver, not elsewhere classified; E11.9 Type 2 diabetes mellitus without complications; E88.81 Metabolic syndrome and other insulin resistance; E86.0 Dehydration; R00.1 Bradycardia, unspecified; K21.9 Gastro-esophageal reflux disease without esophagitis; D64.9 Anemia, unspecified; K44.9 Diaphragmatic hernia without obstruction or gangrene; E66.9 Obesity, unspecified; M51.37 Other intervertebral disc degeneration, lumbosacral region; Z68.30 Body mass index [BMI] 30.0-30.9, adult; Z87.19 Personal history of other diseases of the digestive system; Z79.84 Long term (current) use of oral hypoglycemic drugs; Z79.899 Other long term (current) drug therapy
CPT/HCPCS: 36415; 80053; 81001; 85025; 87081; 93005; 93010

== ENCOUNTER 2016-08-05 03:23 | Inpatient (IN) ==
[2012-12-30 11:41] VITALS: BP 129/65; TEMP 98.3
[2016-08-05] MEDS ORDERED: DEMEROL 25 MG/ML SYRINGE IM STA (04:17)
[2016-08-05] MEDS ORDERED: ZOFRAN 4 MG/2 ML IM STA (04:17)
--- NOTE | 2016-08-05 04:20 | ED.PDOC ---
General ED Provider: Dr. SEVEN CHRISTIANSEN Chief Complaint: Abdominal Pain Stated Complaint: Hurting in the belly for 2 days, has h/o diverticulitis, no fever or chills, not vomiting. Time Seen by Physician: 04:18 Mode of Arrival: Wheelchair Information Source: Patient Primary Care Provider: EMBER REHMAN Nursing and Triage Documentation Reviewed and Agree: Yes GI Complaint Exam - Abdominal Pain Complaint/Exam Onset: Gradual Symptoms Are: Still present Timing: Constant Initial Severity: Moderate Current Severity: Moderate Location of Pain: Discrete Character: Reports: Aching, Throbbing Aggravating: Reports: Movement, Food, Deep breaths, Position Alleviating: Reports: None Associated Signs and Symptoms: Reports: Constipation, Nausea, Decreased activity. Denies: Diaphoresis, Fever, Cough, Chest pain, Dizziness, Back pain, Blood in stool, Dysuria, Urinary frequency, Decreased urine output, Decreased appetite, Vaginal bleeding, Vaginal discharge, Vomiting, Diarrhea, Sore throat Related History: Reports: Similar episode AAA Risk Factors: Reports: None Cardiac Risk Factors: Reports: None Ectopic Risk Factors: Reports: None Ovarian Torsion Risk Factors: Reports: None Surgical Obstruction Risk Factors: Reports: None Related Surgical History: Reports: None Patient Rh Status: Unknown Abdominal Findings: Present: Abdominal distention. Absent: Pulsatile mass, Unequal femoral pulses, Rebound tenderness, Peritoneal signs, McBurney's Point tender Differential Diagnoses: Diverticulitis, UTI Review of Systems - Review Of Systems Constitutional: Reports: No symptoms Eyes: Reports: No symptoms Ears, Nose, Mouth, Throat: Reports: No symptoms Respiratory: Reports: No symptoms Cardiac: Reports: No symptoms GI: Reports: Abdomen distended, Abdominal pain, Nausea : Reports: No symptoms Musculoskeletal: Reports: No symptoms Skin: Reports: No symptoms Neurological: Reports: No symptoms Endocrine: Reports: No symptoms Hematologic/Lymphatic: Reports: No symptoms All Other Systems: Reviewed and Negative Past Medical History - Past Medical History Previously Healthy: No Endocrine: Reports: Dyslipidemia Cardiovascular: Reports: Hypertension Respiratory: Reports: None Hematological: Reports: Anemia Gastrointestinal: Reports: GERD, Diverticulitis Genitourinary: Reports: None Neuro/Psych: Reports: None Musculoskeletal: Reports: Arthritis, Back Pain Cancer: Reports: None Last Menstrual Period: PT HAS HAD A HYSTERECTOMY - Surgical History General Surgical History: Reports: None - Family History Family History: Reports: None - Social History Smoking Status: Former smoker Hx Substance Use: No Alcohol Screening: None - Immunizations Tetanus Shot up to Date: No Physical Exam - Physical Exam Appearance: Ill-appearing, Obese Pain Distress: Moderate Eyes: FAVIOLA, EOMI, Conjunctiva clear ENT: Ears normal, Nose normal, Oropharynx normal Respiratory: Airway patent, Breath sounds clear, Breath sounds equal, Respirations nonlabored Cardiovascular: RRR, Pulses normal, No rub, No murmur GI/: Soft, Tender, Bowel sounds hypoactive Musculoskeletal: Normal strength, ROM intact, No edema, No calf tenderness Skin: Warm, Dry, Normal color Neurological: Sensation intact, Motor intact, Reflexes intact, Cranial nerves intact, Alert, Oriented Psychiatric: Affect appropriate, Mood appropriate Interpretation - Radiology Interpretation Radiology Interpretation By: Radiologist Radiology Results: Positive Exam Interpreted: CT Scan Critical Care Note - Critical Care Note Total Time (mins): 0 Course - Course Hematology/Chemistry: 08/05/16 04:44 08/05/16 04:44 Orders, Labs, Meds: Lab Review 08/05/16 08/05/16 04:40 04:44 WBC 8.49 RBC 4.11 L Hgb 11.9 L Hct 35.3 L MCV 85.9 MCH 29.0 MCHC 33.7 RDW Coeff of Linda 13.4 Plt Count 286 Immature Gran % (Auto) 0.4 Neut % (Auto) 72.8 Lymph % (Auto) 18.1 [place] % (Auto) 7.8 Eos % (Auto) 0.5 Baso % (Auto) 0.4 Immature Gran # (Auto) 0.0 Neut # 6.2 Lymph # 1.5 [place] # 0.7 Eos # 0.0 Baso # 0.0 Sodium 141 Potassium 3.7 Chloride 105 Carbon Dioxide 25 Anion Gap 14.7 BUN 17 Creatinine 0.89 Estimated GFR (MDRD) 62.00 BUN/Creatinine Ratio 19.10 Glucose 138 H Calcium 9.5 Total Bilirubin 0.64 AST 29 ALT 22 Alkaline Phosphatase 46 L Total Protein 7.0 Albumin 3.8 Globulin 3.2 Albumin/Globulin Ratio 1.19 Urine Color Yellow Urine Clarity Clear Urine pH 5.5 Ur Specific [place] 1.020 Urine Protein Negative Urine Glucose (UA) Negative Urine Ketones Negative Urine Blood Trace-intact Urine Nitrite Negative Urine Bilirubin Negative Urine Urobilinogen 0.2 Ur Leukocyte Esterase Trace Urine Microscopic RBC 0-2 Urine Microscopic WBC 0-2 Ur Squamous Epith Cells 2-5 Urine Bacteria Trace Orders Category Date Time Status CBC W/ AUTO DIFF Stat LAB 08/05/16 04:44 Completed COMPREHENSIVE METABOLIC PANEL Stat LAB 08/05/16 04:44 Completed URINALYSIS C & S IF INDICATED Stat LAB 08/05/16 04:40 Completed Meperidine HCl/Pf [Demerol 25 mg/ml Syringe] MEDS 08/05/16 04:17 Discontinued 25 mg IM ONCE STA Ondansetron HCl/Pf [Zofran 4 mg/2 ml] MEDS 08/05/16 04:17 Discontinued 4 mg IM ONCE STA CT ABDOMEN/PELVIS WO CONTRAST Stat RADS 08/05/16 04:17 Completed Medications Discontinued Medications Generic Name Dose Route Start Last Admin Trade Name Freq PRN Reason Stop Dose Admin Meperidine HCl 25 mg 08/05/16 04:17 08/05/16 04:24 Demerol 25 Mg/Ml Syringe IM 08/05/16 04:18 25 mg ONCE STA Administration Ondansetron HCl 4 mg 08/05/16 04:17 08/05/16 04:24 Zofran 4 Mg/2 Ml IM 08/05/16 04:18 4 mg ONCE STA Administration Vital Signs: Temp Pulse Resp BP Pulse Ox 08/05/16 03:24 97.6 F 92 H 18 132/73 95 Departure - Departure Time of Disposition: 06:31 Disposition: ADMITTED INPATIENT Discharge Problem: Diverticulitis Qualifiers: Diverticulitis site: large intestine Diverticulitis bleeding: without bleeding Diverticulitis complication: without perforation or abscess Qualifier Code: ( K57.32) Diverticulitis of large intestine without perforation or abscess without bleeding Diverticulitis Qualifiers: Diverticulitis site: large intestine Diverticulitis bleeding: without bleeding Diverticulitis complication: without perforation or abscess Qualifier Code: ( K57.32) Diverticulitis of large intestine without perforation or abscess without bleeding Instructions: Diverticulitis (ED) Condition: Stable Pt referred to PMD for follow-up: Yes Allergies/Adverse Reactions: Allergies atorvastatin calcium [From Lipitor] Adverse Reaction (Verified 08/05/16 03:40) cephalexin [From Keflex] Adverse Reaction (Verified 08/05/16 03:40) cimetidine [From Tagamet] Adverse Reaction (Verified 08/05/16 03:40) cimetidine HCl [From Tagamet] Adverse Reaction (Verified 08/05/16 03:40) ciprofloxacin Adverse Reaction (Verified 08/05/16 03:40) fenofibrate nanocrystallized [From Tricor] Adverse Reaction (Verified 08/05/16 03:40) fenofibrate,micronized [From Tricor] Adverse Reaction (Verified 08/05/16 03:40) gatifloxacin [From Tequin] Adverse Reaction (Verified 08/05/16 03:40) ibuprofen Adverse Reaction (Verified 08/05/16 03:40) minocycline HCl [From Minocin] Adverse Reaction (Verified 08/05/16 03:40) nitrofurantoin macrocrystal [From Macrodantin] Adverse Reaction (Verified 03:40) olmesartan [From Benicar] Adverse Reaction (Verified 08/05/16 03:40) olmesartan medoxomil [From Benicar] Adverse Reaction (Verified 08/05/16 03:40) Penicillins Adverse Reaction (Verified 08/05/16 03:40) rosuvastatin calcium [From Crestor] Adverse Reaction (Verified 08/05/16 03:40) simvastatin Adverse Reaction (Verified 08/05/16 03:40) Skin Cleanser Combination No.4 [From Minocin] Adverse Reaction (Verified 03:40) Sulfa (Sulfonamide Antibiotics) Adverse Reaction (Verified 08/05/16 03:40) VIBRICILLEN Adverse Reaction (Uncoded 08/05/16 03:40) VICTRIN Adverse Reaction (Uncoded 08/05/16 03:40) Home Medications: Ambulatory Orders Aspirin [Aspirin Chewable] 81 mg PO DAILY 12/27/12 Fenofibrate,Micronized [Fenofibrate] 134 mg PO DAILY 12/27/12 Omeprazole [Prilosec] 20 mg PO QDAC 12/27/12 Amlodipine Besylate 2.5 mg PO DAILY 06/15/16 Flaxseed Oil 1,000 mg PO DAILY 06/15/16 Metformin HCl [Glucophage] 500 mg PO DAILYWM 06/15/16 Losartan/Hydrochlorothiazide [Losartan-Hctz 100-25 mg Tab] 1 each PO DAILY #30 tablet 06/18/16 Metronidazole [Flagyl] 500 mg PO Q8HR #15 tablet 07/15/16 Ondansetron HCl [Zofran Tab] 4 mg PO BID PRN #10 tablet 07/15/16 Disposition Discussed With: Patient
[2016-08-05 04:46] LABS: BASOPHILS % (AUTO) 0.4 % (0.0-3.0); EOSINOPHILS % (AUTO) 0.5 % (0.0-7.0); HEMATOCRIT 35.3 % (37.0-47.0); HEMOGLOBIN 11.9 g/dl (12.0-16.0); IMMATURE GRANULOCYTE % (AUTO) 0.4 % (0.0-5.0); LYMPHOCYTES # (AUTO) 1.5 K/uL (0.60-3.4); LYMPHOCYTES % (AUTO) 18.1 (10.0-50.0); MEAN CORPUSCULAR HGB CONC 33.7 (31.8-35.4); MEAN CORPUSCULAR VOLUME 85.9 fl (81.0-99.0); MONOCYTES # (AUTO) 0.7 K/uL (0.4-2.0); MONOCYTES % (AUTO) 7.8 (0-10); NEUTROPHILS # (AUTO) 6.2 K/ul (2.0-6.9); NEUTROPHILS % (AUTO) 72.8; PLATELET COUNT 286 10^3/uL (140-440); RED BLOOD COUNT 4.11 10^6/ul (4.20-5.40); WHITE BLOOD COUNT 8.49 K/ul (4.6-10.2)
[2016-08-05 04:53] LABS: BILIRUBIN,URINE Negative (NEGATIVE); KETONES,URINE Negative (NEGATIVE); LEUKOCYTE ESTERASE ,URINE Trace (NEGATIVE); NITRITE,URINE Negative (NEGATIVE); PH,URINE 5.5 (5-9); PROTEIN,URINE Negative (NEGATIVE); URINE, BLOOD Trace-intact (NEGATIVE)
[2016-08-05 04:56] LABS: ADD URINE MICROSCOPIC YES; BACTERIA,URINE TRACE (NOT PRESENT)
--- NOTE | 2016-08-05 04:57 | CT ---
Exam: CT of the abdomen and pelvis without contrast History: Abdominal pain Technique: [address] of the abdomen and pelvis without intravascular contrast FINDINGS: There is a 7.5 mm nodule of the left lung base also seen on distant prior studies, benign . The lung bases are clear otherwise. Prior cholecystectomy. Bilateral parapelvic renal cysts. T he kidneys and collecting system are unremarkable otherwise. The appendix is normal. Bowel loops de monstrate normal caliber. No inflamatory change seen in the mesentery or retroperitoneum. Atheroscle rotic calcification of the aorta without aneurysm. Colonic diverticulosis of the sigmoid colon. There is focal inflammation with central offending div erticula. No abscess cavity or free intraperitoneal gas. Short segment sigmoid colonic thickening. Prior hysterectomy. Normal urinary bladder. Impression: 1. Colonic diverticulosis of the sigmoid with mild adjacent inflammation and central offending dive rticula consistent with acute diverticulitis. No free intraperitoneal gas or abscess. New finding compared with 07/12/2016. 2. Stable left lung base nodule compared with 01/29/2013, benign.
[2016-08-05 05:07] LABS: ALBUMIN 3.8 g/dL (3.4-5.0); ALBUMIN/GLOBULIN RATIO 1.19; ANION GAP 14.7; BILIRUBIN,TOTAL 0.64 mg/dL (0.00-1.20); BUN/CREATININE RATIO 19.1; CALCIUM 9.5 mg/dL (8.2-10.2); CREATININE 0.89 mg/dL (0.60-1.30); POTASSIUM 3.7 mmol/L (3.5-5.10)
[2016-08-05] MEDS ORDERED: TYLENOL PO PRN (06:32)
[2016-08-05] MEDS ORDERED: MORPHINE 2 MG/ML SYRINGE IVP PRN (06:34)
[2016-08-05] MEDS ORDERED: DEXTROSE 5%-NS IV SOLUTION 1,000 ML IV STA (06:38)
[2016-08-05] MEDS ORDERED: SODIUM CHLORIDE 1,000 ML IV SCH (07:00)
[2016-08-05 08:13] VITALS: BMI 29.2
[2016-08-05] MEDS: HYZAAR 50-12.5 MG TAB PO SCH (08:23)
[2016-08-05] MEDS: LOVENOX SUBCUT SCH (08:23)
[2016-08-05] MEDS: TRIGLIDE PO SCH (08:23)
[2016-08-05] MEDS: NORVASC PO SCH (08:24)
[2016-08-05] MEDS: ASPIRIN CHEWABLE PO SCH (08:24)
[2016-08-05] MEDS: D5W IV SCH ×2 (08:25→21:21)
[2016-08-05] MEDS: CIPRO IV SCH ×2 (08:25→21:21)
[2016-08-05] MEDS: ZOFRAN 4 MG/2 ML IVP PRN (08:39)
[2016-08-05] MEDS: NON-FORMULARY MEDICATION (Flaxseed Oil [Flaxseed Oil] 1,000 MG) PO SCH (08:43)
[2016-08-05] MEDS ORDERED: NON-FORMULARY MEDICATION (Fenofibrate,Micronized [Fenofibrate] 134 MG) PO SCH ×22 (09:00)
[2016-08-05] MEDS ORDERED: NON-FORMULARY MEDICATION (Amlodipine Besylate [Amlodipine Besylate] 2.5 MG) PO SCH ×22 (09:00)
[2016-08-05] MEDS ORDERED: NON-FORMULARY MEDICATION (Losartan/Hydrochlorothiazide [Losartan-Hctz 100-25 Mg Tab] 1 EAC PO SCH (09:00)
[2016-08-05] MEDS: FLAGYL 500 MG/100 ML 500 MG in PREMIX 100 ML NS 1 BAG IV SCH ×2 (12:50→20:07)
[2016-08-05 13:38] LABS: CREATINE KINASE 33 U/L
--- NOTE | 2016-08-05 13:56 | HP ---
DATE OF SERVICE: 08/05/16 REASON FOR HOSPITALIZATION: Diverticulitis HISTORY OF PRESENT ILLNESS: This 70 year old WHITE/ F was hospitalized 08/05/16. The patient is hospitalized through the ER with left lower quadrant suprapubic area pain of 2 days duration. Meals made her uncomfortable with a queasy feeling. No vomiting. No diarrhea. The patient has a history of diverticulitis, recurrent with several hospitalizations in the recent past. REVIEW OF SYSTEMS: CONSTITUTIONAL: No night sweats. No fatigue, malaise, lethargy. No fever or chills. HEENT: Eyes: No visual changes. No eye pain. No eye discharge. ENT: No runny nose. No epistaxis. No sinus pain. No sore throat. No odynophagia. No ear pain. No congestion. RESPIRATORY: No cough, no congestion. No hemoptysis. CARDIOVASCULAR: No angina symptoms. No CHF symptoms. No atypical chest pain for CAD. No palpitations. No shortness of breath. GASTROINTESTINAL: No appetite. Abdominal pain, left lower quadrant with no hematemesis. No nausea or vomiting. No diarrhea or constipation. No hematemesis. No hematochezia. GENITOURINARY: No urgency. No frequency. No dysuria. No hematuria. No obstructive symptoms. No discharge. No pain. No significant abnormal bleeding. MUSCULOSKELETAL: No musculoskeletal pain. No joint swelling. NEUROLOGICAL: No headache. No neck pain. No syncope. No seizures. No dizziness. PSYCHIATRIC: Not anxious. No depression. No suicidal thoughts. No homicidal thoughts. SKIN: No rash. No lesions. No wounds. ENDOCRINE: No unexplained weight loss. No weight gain. HEMATOLOGIC/LYMPHATIC: No anemia. No purpura. No petechiae. No prolonged or excessive bleeding. No palpable lymph nodes. PERSONAL/FAMILY/SOCIAL HISTORY: lives by herself with help of family. Nonsmoker. No alcohol use. Independent with all activities of daily living. Family History: Father and mother both . PAST MEDICAL/SURGICAL PROBLEMS: 1. Hypertension 2. Diverticulosis of the colon with history of acute diverticulitis, frequent 3. GERD 4. Obesity, BMI of 30 5. Diabetes mellitus Type 2 6. Dyslipidemia 7. Anemia 8. Fatty liver 9. DDD spine PAST SURGICAL HISTORY: 1. C-spine fusion 2. Cholecystectomy 3. Hysterectomy 4. Bilateral feet/bunion MEDICATIONS: (HOME) 1. Omeprazole 20 mg p.o. q.d a.c. 2. Aspirin 81 mg p.o. daily 3. Fenofibrate 134 mg p.o. daily 4. Flaxseed Oil 1000 mg p.o. daily 5. Amlodipine 2.5 mg p.o. daily 6. Metformin 500 mg p.o. daily with meal 7. Losartan/Hydrochlorothiazide 100-25 one each p.o. daily 8. Metronidazole (Flagyl) 500 mg p.o. q. 8hr 9. Ondansetron/Zofran 4 mg p.o. b.i.d. p.r.n. ALLERGIES: MINOCYCLINE (FROM MINOCIN), NITROFURANTOIN, CIMETIDINE (FROM TAGAMET ), ATORVASTATIN (FROM LIPITOR), FENOFIBRATE (FROM TRICOR), OLMESARTAN (FROM BENICAR), ROSUVASTATIN (FROM CRESTOR), SKIN CLEANSER COMBINATION #4 (FROM MINOCIN), PENICILLINS, SULFA (SULFONAMIDE ANTIBIOTICS), IBUPROPFEN, CEPHALEXIN ( FROM KEFLEX), CIPROFLOXACIN, SIMVASTATIN, GATIFLOXACIN (FROM TEQUIN), VIBRICILLEN, VICTRIN PHYSICAL EXAMINATION: GENERAL: The patient is lying in bed in no distress. VITAL SIGNS: Temperature 97.6 F, Pulse 92, Respiratory Rate 18, BP 132/73, Pulse Ox 95% HEENT: Head normocephalic, atraumatic. Eyes: Extraocular muscles are intact. Pupils are equal, round and reactive to light and accommodation. Ears: No lesions. Nose appeared normal. Throat: No exudate or erythema. NECK: Supple. No JVD, no carotid bruit. No lymphadenopathy or thyromegaly. LUNGS: Clear to auscultation. Percussion note normal. Chest symmetrical. HEART: S1, S2, no S3. No murmurs. No cyanosis or clubbing. No ascites. Pulses: Dorsalis pedis and posterior tibial pulses +1 to +2 both sides. ABDOMEN: Soft. Mild tenderness left lower quadrant otherwise negative. Bowel sounds active. No CVA tenderness. No mass felt. EXTREMITIES: No edema. Full range of motion of all extremities, equal. NEUROLOGIC: No focal deficit. Cranial nerves II through XII are grossly intact. No headache, no double vision or headache. SKIN: Not dry. Intact. Turgor - normal. LYMPHATIC: No palpable lymph nodes/no lymphedema. MUSCULOSKELETAL: Normal joints with no swelling. Muscle tone is normal. LAB/X-RAYS: WBC 8.49, RBC 4.11, Hgb 11.9, Hct 35.3. Platelet count 286. Chemistries: Sodium 141, potassium 3.7, chloride 105, carbon dioxide 25, BUN 17, creatinine 0.89, glucose 138, AST 29, ALT 22, alkaline phosphatase 46. UA showed trace of blood, leukocyte esterase and bacteria. CT scan of the abdomen and pelvis without contrast revealed: Colonic diverticulosis of the sigmoid with mild adjacent inflammation and central offending diverticula consistent with acute diverticulitis. No free intraperitoneal gas or abscess. ASSESSMENT: 1. Acute diverticulitis with diverticulosis of the colon, recurrent. 2. Hypertension. 3. Dyslipidemia. 4. Diabetes mellitus. 5. Diverticulosis of the colon, history of. 6. Diverticulitis of the colon, history of. 7. Obesity, BMI of 30. PLAN: 1. Zofran 4 mg 2. Cipro IV 3. IV Flagyl 4. IV fluids, D5 at 100 mL/hr 5. Labs daily 6. No dairy products 7. Telemetry EDUCATION CARRIED OUT ABOUT: Medications and plan of care discussed with the patient. CT scan of the abdomen reviewed showed acute diverticulitis. The patient was explained about diverticulosis and recurrent GI diverticulitis. The patient will have GI and surgical consultation after diverticulitis resolved. In the past, the patient has not considered any surgical referral. CONDITION: STABLE TIME SPENT: More than 70 minutes. SCRIBED BY: Ashish FRANKLIN scribed while in presence of service performed by Dr. EMBER REHMAN on 08/05/16 ([id number]) [facility]
[2016-08-05 21:16] LABS: CREATINE KINASE 29 U/L
[2016-08-05] MEDS: DEXTROSE 5%-NS IV SOLUTION 1,000 ML IV SCH (21:21)
[2016-08-06] MEDS: FLAGYL 500 MG/100 ML 500 MG in PREMIX 100 ML NS 1 BAG IV SCH ×3 (04:00→21:06)
[2016-08-06 05:03] LABS: BASOPHILS % (AUTO) 0.4 % (0.0-3.0); EOSINOPHILS # (AUTO) 0.1 K/ul (0.0-0.7); HEMATOCRIT 31.4 % (37.0-47.0); HEMOGLOBIN 10.6 g/dl (12.0-16.0); IMMATURE GRANULOCYTE % (AUTO) 0.2 % (0.0-5.0); LYMPHOCYTES # (AUTO) 1.5 K/uL (0.60-3.4); LYMPHOCYTES % (AUTO) 30.2 (10.0-50.0); MEAN CORPUSCULAR HEMOGLOBIN 29.3 pg (27.0-31.0); MEAN CORPUSCULAR HGB CONC 33.8 (31.8-35.4); MEAN CORPUSCULAR VOLUME 86.7 fl (81.0-99.0); MONOCYTES # (AUTO) 0.6 K/uL (0.4-2.0); MONOCYTES % (AUTO) 12.5 (0-10); NEUTROPHILS # (AUTO) 2.7 K/ul (2.0-6.9); NEUTROPHILS % (AUTO) 55.7; PLATELET COUNT 245 10^3/uL (140-440); RED BLOOD COUNT 3.62 10^6/ul (4.20-5.40)
[2016-08-06 05:16] LABS: ALBUMIN 3.3 g/dL (3.4-5.0); ALBUMIN/GLOBULIN RATIO 1.1; ANION GAP 13.4; BILIRUBIN,TOTAL 0.89 mg/dL (0.00-1.20); BUN/CREATININE RATIO 11.11; CALCIUM 8.7 mg/dL (8.2-10.2); CREATININE 0.9 mg/dL (0.60-1.30); POTASSIUM 3.4 mmol/L (3.5-5.10); TOTAL PROTEIN 6.3 g/dL (5.8-8.1)
[2016-08-06] MEDS: PRILOSEC PO SCH (05:34)
[2016-08-06] MEDS ORDERED: HUMULIN R SUBCUT PRN (08:01)
[2016-08-06] MEDS ORDERED: DULCOLAX RC STA (08:54)
[2016-08-06] MEDS: ASPIRIN CHEWABLE PO SCH (09:41)
[2016-08-06] MEDS: D5W IV SCH ×2 (09:42→20:02)
[2016-08-06] MEDS: LOVENOX SUBCUT SCH (09:42)
[2016-08-06] MEDS: CIPRO IV SCH ×2 (09:42→20:02)
[2016-08-06] MEDS: HYZAAR 50-12.5 MG TAB PO SCH (09:42)
[2016-08-06] MEDS: NORVASC PO SCH (09:43)
[2016-08-06] MEDS: [UNRECOGNIZED DRUG - MIXTURE] IV SCH (09:43)
[2016-08-06] MEDS: TRIGLIDE PO SCH (09:43)
[2016-08-06] MEDS: DEXTROSE 5%-NS IV SOLUTION 1,000 ML IV SCH (09:44)
[2016-08-06] MEDS: NON-FORMULARY MEDICATION (Flaxseed Oil [Flaxseed Oil] 1,000 MG) PO SCH (09:44)
[2016-08-06] MEDS: ZOFRAN 4 MG/2 ML IVP PRN (12:08)
[2016-08-06] MEDS ORDERED: POTASSIUM CHLORIDE 10 MEQ VIAL-ADDITIVE ONLY IV ONE ×2 (19:48→19:49)
[2016-08-07] MEDS: [UNRECOGNIZED DRUG - MIXTURE] IV SCH ×2 (02:23→02:25)
[2016-08-07] MEDS: FLAGYL 500 MG/100 ML 500 MG in PREMIX 100 ML NS 1 BAG IV SCH ×2 (04:03→12:44)
[2016-08-07 04:53] LABS: BASOPHILS % (AUTO) 0.2 % (0.0-3.0); EOSINOPHILS # (AUTO) 0.1 K/ul (0.0-0.7); EOSINOPHILS % (AUTO) 1.4 % (0.0-7.0); HEMATOCRIT 30.2 % (37.0-47.0); HEMOGLOBIN 10.1 g/dl (12.0-16.0); IMMATURE GRANULOCYTE % (AUTO) 0.2 % (0.0-5.0); LYMPHOCYTES # (AUTO) 1.5 K/uL (0.60-3.4); LYMPHOCYTES % (AUTO) 34.7 (10.0-50.0); MEAN CORPUSCULAR HEMOGLOBIN 29.3 pg (27.0-31.0); MEAN CORPUSCULAR HGB CONC 33.4 (31.8-35.4); MEAN CORPUSCULAR VOLUME 87.5 fl (81.0-99.0); MONOCYTES # (AUTO) 0.5 K/uL (0.4-2.0); MONOCYTES % (AUTO) 12.6 (0-10); NEUTROPHILS # (AUTO) 2.2 K/ul (2.0-6.9); NEUTROPHILS % (AUTO) 50.9; PLATELET COUNT 251 10^3/uL (140-440); RED BLOOD COUNT 3.45 10^6/ul (4.20-5.40)
[2016-08-07 05:22] LABS: ALBUMIN 3.2 g/dL (3.4-5.0); ALBUMIN/GLOBULIN RATIO 1.1; ANION GAP 8.8; BILIRUBIN,TOTAL 0.52 mg/dL (0.00-1.20); BUN/CREATININE RATIO 13.63; CALCIUM 8.6 mg/dL (8.2-10.2); CREATININE 0.88 mg/dL (0.60-1.30); POTASSIUM 3.8 mmol/L (3.5-5.10); TOTAL PROTEIN 6.1 g/dL (5.8-8.1)
[2016-08-07] MEDS: PRILOSEC PO SCH (05:30)
[2016-08-07] MEDS: D5W IV SCH ×2 (08:42→21:10)
[2016-08-07] MEDS: ASPIRIN CHEWABLE PO SCH (08:42)
[2016-08-07] MEDS: CIPRO IV SCH ×2 (08:42→21:10)
[2016-08-07] MEDS: HYZAAR 50-12.5 MG TAB PO SCH (08:43)
[2016-08-07] MEDS: LOVENOX SUBCUT SCH (08:43)
[2016-08-07] MEDS: NORVASC PO SCH (08:43)
[2016-08-07] MEDS: TRIGLIDE PO SCH (08:43)
[2016-08-07] MEDS: NON-FORMULARY MEDICATION (Flaxseed Oil [Flaxseed Oil] 1,000 MG) PO SCH (08:44)
--- NOTE | 2016-08-07 09:17 | PCM.PROG ---
Attending Provider: ATTENDING PROVIDER: Dr. EMBER REHMAN DATE OF SERVICE: 08/07/16 SUBJECTIVE: This 70 year old WHITE/ F was hospitalized 08/05/16. The patient is admitted with diverticulitis acute. The patient seems to have improved a lot. She has no abdominal discomfort or pain. The patient's appetite improved. She had three bowel movements yesterday. REVIEW OF SYSTEMS: CONSTITUTIONAL: No night sweats. No fatigue, malaise, lethargy. No fever or chills. HEENT: Eyes: No visual changes. No eye pain. No eye discharge. ENT: No runny nose. No epistaxis. No sinus pain. No odynophagia. No congestion. RESPIRATORY: No cough, no congestion. No hemoptysis. CARDIOVASCULAR: No angina symptoms. No CHF symptoms. No atypical chest pain for CAD. No palpitations. No shortness of breath. GASTROINTESTINAL: Appetite better. Mild tenderness in left lower quadrant. No abdominal pain. No nausea or vomiting. No diarrhea or constipation. No hematemesis. No hematochezia. GENITOURINARY: No urgency. No frequency. No dysuria. No hematuria. No obstructive symptoms. No discharge. No pain. No significant abnormal bleeding. MUSCULOSKELETAL: No musculoskeletal pain; no joint swelling. NEUROLOGICAL: Awake, alert, oriented to time, place and person. No headache. No neck pain. No syncope. No seizures. No dizziness. PSYCHIATRIC: Not anxious. No depression. No suicidal thoughts. No homicidal thoughts. SKIN: No rash. No lesions. No wounds. ENDOCRINE: No unexplained weight loss. No weight gain. HEMATOLOGIC/LYMPHATIC: No anemia. No purpura. No petechiae. No prolonged or excessive bleeding. No palpable lymph nodes. PHYSICAL EXAMINATION: GENERAL: The patient is awake, alert and oriented, lying/sitting in bed in no distress. VITAL SIGNS: Temperature 97.9 F, Pulse 61, Respiratory Rate 18, BP 106/58, Pulse Ox 97% HEENT: Head normocephalic, atraumatic. Eyes: Extraocular muscles are intact. Pupils are equal, round and reactive to light and accommodation. Ears: No lesions. Nose appeared normal. Throat: No exudate or erythema. NECK: Supple. No JVD, no carotid bruit. No lymphadenopathy or thyromegaly. LUNGS: Clear to auscultation. Percussion note normal. Chest symmetrical. HEART: S1, S2, no S3. No murmurs. No cyanosis or clubbing. No ascites. Pulses: Dorsalis pedis and posterior tibial pulses +1 to +2 both sides. ABDOMEN: Soft. Maybe some mild tenderness in left lower quadrant. No rebound tenderness. Bowel sounds active. No CVA tenderness. No mass felt. EXTREMITIES: No edema. Full range of motion of all extremities, equal. NEUROLOGIC: No focal deficit. Cranial nerves II through XII are grossly intact. No headache, no double vision or headache. SKIN: Not dry. Intact. Turgor-normal. LYMPHATIC: No palpable lymph nodes/no lymphedema. MUSCULOSKELETAL: Normal joints with no swelling. Muscle tone is normal. LAB REVIEW: 08/07/16 04:47 08/07/16 04:47 08/07/16 04:47: WBC 4.30 L, RBC 3.45 L, Hgb 10.1 L, Hct 30.2 L, MCV 87.5, MCH 29.3, MCHC 33.4, RDW Coeff of [place] 13.2, Plt Count 251, Immature Gran % (Auto) 0.2, Neut % (Auto) 50.9, Lymph % (Auto) 34.7, [place] % (Auto) 12.6 H, Eos % (Auto ) 1.4, Baso % (Auto) 0.2, Immature Gran # (Auto) 0.0, Neut # 2.2, Lymph # 1.5, [place] # 0.5, Eos # 0.1, Baso # 0.0, Sodium 141, Potassium 3.8, Chloride 107, Carbon Dioxide 29, Anion Gap 8.8, BUN 12, Creatinine 0.88, Estimated GFR (MDRD) 63.00, BUN/Creatinine Ratio 13.63, Glucose 132 H, Calcium 8.6, Total Bilirubin 0.52, AST 27, ALT 19, Alkaline Phosphatase 40 L, Total Protein 6.1, Albumin 3.2 L, Globulin 2.9, Albumin/Globulin Ratio 1.10 ASSESSMENT: 1. Acute diverticulitis, resolving. PLAN: 1. Continue IV antibiotics 2. Continue IV fluids 3. D/C telemetry 4. Soft diet 5. Up and about 7. D/C IV fluids 8. CT scan of abdomen w/contrast to rule out abscess Plan and coordination of the patient's care discussed in the presence of Factory Assembler and nurse. CONDITION: stable SCRIBED BY: FRANCE LOONEY Arborist Climber scribed while in presence of service performed by Dr. EMBER REHMAN on 08/07/16 ([id number])
--- NOTE | 2016-08-07 09:41 | PN ---
DATE OF SERVICE: 08/06/16 SUBJECTIVE: The patient is a 70 year old white female hospitalized with acute diverticulitis. The patient is feeling better. The appetite is still not that good and did not have a DM. She is passing some gas and the pain is mild not like what it was when she was admitted. REVIEW OF SYSTEMS: CONSTITUTIONAL: No night sweats. No fatigue, malaise, lethargy. No fever or chills. HEENT: Eyes: No visual changes. No eye pain. No eye discharge. ENT: No runny nose. No epistaxis. No sinus pain. No sore throat. No odynophagia. No congestion. RESPIRATORY: No cough, no congestion. No hemoptysis. CARDIOVASCULAR: No angina symptoms. No CHF symptoms. No atypical chest pain for CAD. No palpitations. No shortness of breath. GASTROINTESTINAL: No abdominal pain. No nausea or vomiting. No diarrhea or constipation. No hematemesis. No hematochezia. GENITOURINARY: No urgency. No frequency. No dysuria. No hematuria. No obstructive symptoms. No discharge. No pain. No significant abnormal bleeding. MUSCULOSKELETAL: No musculoskeletal pain; no joint swelling. NEUROLOGICAL: No headache. No neck pain. No syncope. No seizures. No dizziness. PSYCHIATRIC: Not anxious. No depression. No suicidal thoughts. No homicidal thoughts. SKIN: No rash. No lesions. No wounds. ENDOCRINE: No unexplained weight loss. No weight gain. HEMATOLOGIC/LYMPHATIC: No anemia. No purpura. No petechiae. No prolonged or excessive bleeding. No palpable lymph nodes. PHYSICAL EXAMINATION: GENERAL: The patient is oriented to time, place and person. VITAL SIGNS: Temperature 97.1, pulse 68, respiratory rate 20, blood pressure 113/66 and pulse ox 97%. HEENT: Head normocephalic, atraumatic. Eyes: Extraocular muscles are intact. Pupils are equal, round and reactive to light and accommodation. Ears: No lesions. Nose appeared normal. Throat: No exudate or erythema. NECK: Supple. No JVD, no carotid bruit. No lymphadenopathy or thyromegaly. LUNGS: Decreased breath sounds but clear to auscultation. Percussion note normal. Chest symmetrical. HEART: S1, S2, no S3. No murmurs. No cyanosis or clubbing. No ascites. Pulses: Dorsalis pedis and posterior tibial pulses +1 to +2 both sides. ABDOMEN: Soft. Mild left lower quadrant tenderness. Bowel sounds active. No CVA tenderness. No mass felt. EXTREMITIES: No edema. Full range of motion of all extremities, equal. NEUROLOGIC: No focal deficit. Cranial nerves II through XII are grossly intact. No headache, no double vision or headache. SKIN: Not dry. Intact. Turgor - normal. LYMPHATIC: No palpable lymph nodes/no lymphedema. MUSCULOSKELETAL: Normal joints with no swelling. Muscle tone is normal. LABS: Hgb 10.6, hct 31, WBC 4,800 normal differential, creatinine 0.9, BUN 10, potassium 3.4 and glucose 142. ASSESSMENT: 1. Acute diverticulitis with some improvement in diverticulitis clinically PLAN: 1. Continue IV antibiotics and IV fluids 2. Decrease IV 75cc per minute 3. Diet soft if tolerated 4. Give Dulcolax suppository TIME SPENT: More than 30 minutes. Plan and coordination of the patient's care discussed in the presence of nurse. ANA M
--- NOTE | 2016-08-07 14:59 | CT ---
Exam: CT abdomen and pelvis without and with IV contrast. Clinical indication: Abdominal pain with nausea vomiting. Diverticulitis. TECHNIQUE: Axial unenhanced followed by axial IV contrast enhanced CT images of the abdomen and pel vis were obtained followed by coronal and sagittal reformats. Comparison is made to the prior study dated 08/05/2016. Findings: There is no free intra-abdominal gas or fluid. Note is again made of the extensive sigmoid diverticulosis with focal area of mild inflammatory sanchez ges within the mid portion adjacent to some diverticula, consistent with uncomplicated diverticuliti s. There has been a prior cholecystectomy. There are incidental punctate hepatic and splenic calcifications consistent with old healed granulom atous disease. There are no worrisome hepatic or splenic lesions. The adrenals and pancreas are normal. The bilateral kidneys demonstrate multiple bilateral parapelvic cysts. The bilateral kidneys are ot herwise unremarkable. There are no enlarged abdominal or pelvic lymph nodes, by size criteria. There has been a prior hysterectomy. The remainder of the bowel is unremarkable. There is a calcified left lower lobe pulmonary granuloma, consistent with old healed granulomatous d isease. There is lower lumbar degenerative disc disease. The remainder of the visualized bony structures ar e unremarkable. Impression: Findings again are consistent with mild uncomplicated sigmoid diverticulitis.
[2016-08-08] MEDS: FLAGYL 500 MG/100 ML 500 MG in PREMIX 100 ML NS 1 BAG IV SCH ×4 (00:10→22:16)
[2016-08-08] MEDS ORDERED: POTASSIUM CHLORIDE 20 MEQ VIAL-ADDITIVE ONLY IV ONE ×2 (01:28→01:32)
[2016-08-08] MEDS: PRILOSEC PO SCH (06:10)
[2016-08-08 06:42] LABS: BASOPHILS % (AUTO) 0.8 % (0.0-3.0); EOSINOPHILS # (AUTO) 0.1 K/ul (0.0-0.7); EOSINOPHILS % (AUTO) 2.2 % (0.0-7.0); HEMATOCRIT 32.9 % (37.0-47.0); HEMOGLOBIN 10.8 g/dl (12.0-16.0); IMMATURE GRANULOCYTE % (AUTO) 0.3 % (0.0-5.0); LYMPHOCYTES # (AUTO) 1.4 K/uL (0.60-3.4); LYMPHOCYTES % (AUTO) 39.6 (10.0-50.0); MEAN CORPUSCULAR HEMOGLOBIN 28.6 pg (27.0-31.0); MEAN CORPUSCULAR HGB CONC 32.8 (31.8-35.4); MONOCYTES # (AUTO) 0.4 K/uL (0.4-2.0); MONOCYTES % (AUTO) 9.8 (0-10); NEUTROPHILS # (AUTO) 1.7 K/ul (2.0-6.9); NEUTROPHILS % (AUTO) 47.3; PLATELET COUNT 289 10^3/uL (140-440); RED BLOOD COUNT 3.78 10^6/ul (4.20-5.40); WHITE BLOOD COUNT 3.56 K/ul (4.6-10.2)
[2016-08-08 07:25] LABS: ALBUMIN 3.5 g/dL (3.4-5.0); ALBUMIN/GLOBULIN RATIO 1.17; ANION GAP 12.9; BILIRUBIN,TOTAL 0.39 mg/dL (0.00-1.20); BUN/CREATININE RATIO 12.9; CALCIUM 9.1 mg/dL (8.2-10.2); CREATININE 0.93 mg/dL (0.60-1.30); POTASSIUM 3.9 mmol/L (3.5-5.10); TOTAL PROTEIN 6.5 g/dL (5.8-8.1)
[2016-08-08] MEDS: ASPIRIN CHEWABLE PO SCH (09:59)
[2016-08-08] MEDS: CIPRO IV SCH ×2 (09:59→20:11)
[2016-08-08] MEDS: D5W IV SCH ×2 (09:59→20:11)
[2016-08-08] MEDS: NORVASC PO SCH (10:00)
[2016-08-08] MEDS: HYZAAR 50-12.5 MG TAB PO SCH (10:00)
[2016-08-08] MEDS: NON-FORMULARY MEDICATION (Flaxseed Oil [Flaxseed Oil] 1,000 MG) PO SCH (10:00)
[2016-08-08] MEDS: LOVENOX SUBCUT SCH (10:00)
[2016-08-08] MEDS: TRIGLIDE PO SCH (10:01)
[2016-08-09] MEDS: FLAGYL 500 MG/100 ML 500 MG in PREMIX 100 ML NS 1 BAG IV SCH (04:22)
[2016-08-09] MEDS: PRILOSEC PO SCH (05:31)
[2016-08-09 05:33] VITALS: BP 108/70; TEMP 97.8
[2016-08-09 06:23] LABS: BASOPHILS % (AUTO) 0.6 % (0.0-3.0); EOSINOPHILS # (AUTO) 0.1 K/ul (0.0-0.7); EOSINOPHILS % (AUTO) 1.5 % (0.0-7.0); HEMATOCRIT 34.4 % (37.0-47.0); HEMOGLOBIN 11.6 g/dl (12.0-16.0); IMMATURE GRANULOCYTE % (AUTO) 0.4 % (0.0-5.0); LYMPHOCYTES # (AUTO) 1.3 K/uL (0.60-3.4); LYMPHOCYTES % (AUTO) 26.8 (10.0-50.0); MEAN CORPUSCULAR HEMOGLOBIN 28.9 pg (27.0-31.0); MEAN CORPUSCULAR HGB CONC 33.7 (31.8-35.4); MEAN CORPUSCULAR VOLUME 85.6 fl (81.0-99.0); MONOCYTES # (AUTO) 0.5 K/uL (0.4-2.0); MONOCYTES % (AUTO) 10.6 (0-10); NEUTROPHILS # (AUTO) 2.9 K/ul (2.0-6.9); NEUTROPHILS % (AUTO) 60.1; PLATELET COUNT 312 10^3/uL (140-440); RED BLOOD COUNT 4.02 10^6/ul (4.20-5.40); WHITE BLOOD COUNT 4.81 K/ul (4.6-10.2)
[2016-08-09 07:02] LABS: ALBUMIN 3.7 g/dL (3.4-5.0); ALBUMIN/GLOBULIN RATIO 1.28; ANION GAP 12.8; BILIRUBIN,TOTAL 0.52 mg/dL (0.00-1.20); BUN/CREATININE RATIO 13.68; CALCIUM 9.3 mg/dL (8.2-10.2); CREATININE 0.95 mg/dL (0.60-1.30); POTASSIUM 3.8 mmol/L (3.5-5.10); TOTAL PROTEIN 6.6 g/dL (5.8-8.1)
[2016-08-09] MEDS: ASPIRIN CHEWABLE PO SCH (08:58)
[2016-08-09] MEDS: HYZAAR 50-12.5 MG TAB PO SCH (09:01)
[2016-08-09] MEDS: TRIGLIDE PO SCH (09:01)
[2016-08-09] MEDS: NORVASC PO SCH (09:02)
[2016-08-09] MEDS: D5W IV SCH (09:03)
[2016-08-09] MEDS: CIPRO IV SCH (09:03)
[2016-08-09] MEDS: NON-FORMULARY MEDICATION (Flaxseed Oil [Flaxseed Oil] 1,000 MG) PO SCH (09:04)
[2016-08-09] MEDS: LOVENOX SUBCUT SCH (09:04)
[2016-08-09] MEDS: ZOFRAN 4 MG/2 ML IVP PRN (11:18)
--- NOTE | 2016-08-09 11:41 | PCM.PROG ---
Attending Provider: ATTENDING PROVIDER: Dr. EMBER REHMAN DATE OF SERVICE: 08/09/16 SUBJECTIVE: This 70 year old WHITE/ F was hospitalized 08/05/16. The patient is hospitalized with acute diverticulitis. She is feeling much better with no pain. She is looking good, has a normal appetite and is up and about. Normal bowel movements. REVIEW OF SYSTEMS: CONSTITUTIONAL: No night sweats. No fatigue, malaise, lethargy. No fever or chills. HEENT: Eyes: No visual changes. No eye pain. No eye discharge. ENT: No runny nose. No epistaxis. No sinus pain. No odynophagia. No congestion. RESPIRATORY: No cough, no congestion. No hemoptysis. CARDIOVASCULAR: No angina symptoms. No CHF symptoms. No atypical chest pain for CAD. No palpitations. No shortness of breath. GASTROINTESTINAL: No abdominal pain. No nausea or vomiting. No diarrhea or constipation. No hematemesis. No hematochezia. GENITOURINARY: No urgency. No frequency. No dysuria. No hematuria. No obstructive symptoms. No discharge. No pain. No significant abnormal bleeding. MUSCULOSKELETAL: No musculoskeletal pain; no joint swelling. NEUROLOGICAL: Awake, alert, oriented to time, place and person. No headache. No neck pain. No syncope. No seizures. No dizziness. PSYCHIATRIC: Not anxious. No depression. No suicidal thoughts. No homicidal thoughts. SKIN: No rash. No lesions. No wounds. ENDOCRINE: No unexplained weight loss. No weight gain. HEMATOLOGIC/LYMPHATIC: No anemia. No purpura. No petechiae. No prolonged or excessive bleeding. No palpable lymph nodes. PHYSICAL EXAMINATION: GENERAL: The patient is awake, alert and oriented, lying in bed in no distress. VITAL SIGNS: Temperature 97.8 F, Pulse 74, Respiratory Rate 16, BP 108/70, Pulse Ox 96% HEENT: Head normocephalic, atraumatic. Eyes: Extraocular muscles are intact. Pupils are equal, round and reactive to light and accommodation. Ears: No lesions. Nose appeared normal. Throat: No exudate or erythema. NECK: Supple. No JVD, no carotid bruit. No lymphadenopathy or thyromegaly. LUNGS: Clear to auscultation. Percussion note normal. Chest symmetrical. HEART: S1, S2, no S3. No murmurs. No cyanosis or clubbing. No ascites. Pulses: Dorsalis pedis and posterior tibial pulses +1 to +2 both sides. ABDOMEN: Soft. Non-tender. Bowel sounds active. No CVA tenderness. No mass felt. EXTREMITIES: No edema. Full range of motion of all extremities, equal. NEUROLOGIC: No focal deficit. Cranial nerves II through XII are grossly intact. No headache, no double vision or headache. SKIN: Not dry. Intact. Turgor-normal. LYMPHATIC: No palpable lymph nodes/no lymphedema. MUSCULOSKELETAL: Normal joints with no swelling. Muscle tone is normal. LAB REVIEW: 08/09/16 05:30 08/09/16 05:30 08/09/16 05:30: WBC 4.81, RBC 4.02 L, Hgb 11.6 L, Hct 34.4 L, MCV 85.6, MCH 28.9 , MCHC 33.7, RDW Coeff of Linda 13.2, Plt Count 312, Immature Gran % (Auto) 0.4, Neut % (Auto) 60.1, Lymph % (Auto) 26.8, Story % (Auto) 10.6 H, Eos % (Auto) 1.5 , Baso % (Auto) 0.6, Immature Gran # (Auto) 0.0, Neut # 2.9, Lymph # 1.3, Story # 0.5, Eos # 0.1, Baso # 0.0, Sodium 140, Potassium 3.8, Chloride 105, Carbon Dioxide 26, Anion Gap 12.8, BUN 13, Creatinine 0.95, Estimated GFR (MDRD) 58.00 , BUN/Creatinine Ratio 13.68, Glucose 124 H, Calcium 9.3, Total Bilirubin 0.52, AST 31, ALT 20, Alkaline Phosphatase 42 L, Total Protein 6.6, Albumin 3.7, Globulin 2.9, Albumin/Globulin Ratio 1.28 ASSESSMENT: 1. ACUTE DIVERTICULITIS RESOLVING PLAN: 1. Discharge home. 2. Start back on Glucophage. 3. Flagyl 500 mg t.i.d. for 5 days. Plan and coordination of the patient's care discussed in the presence of Retail Training Manager and nurse. EDUCATION: Discussed with the patient the importance of exercise to help with digestion, diverticulitis, et cetera - advised the patient to work out at a gym in the evening hours. Discussed diet appropriate for diverticulitis avoiding seeds, nuts and popcorn. CONDITION: STABLE SCRIBED BY: FRANCE LOONEY, Desktop Support Engineer scribed while in presence of service performed by Dr. EMBER REHMAN on 08/09/16 ([id number])
--- NOTE | 2016-08-09 11:53 | PN ---
DATE OF SERVICE: 08/08/16 SUBJECTIVE: The patient is a 70 year old white female hospitalized with acute diverticulitis. The patient had good day yesterday and today. The patient has been eating soft diet with normal bowel movements. The pain as practically subsided. A CT scan done yesterday showed acute diverticulitis uncomplicated and resolving. The patient's IV has been discontinued and she has been kept on Flagyl IV. She has good appetite today. REVIEW OF SYSTEMS: CONSTITUTIONAL: No night sweats. No fatigue, malaise, lethargy. No fever or chills. HEENT: Eyes: No visual changes. No eye pain. No eye discharge. ENT: No runny nose. No epistaxis. No sinus pain. No sore throat. No odynophagia. No congestion. RESPIRATORY: No cough, no congestion. No hemoptysis. CARDIOVASCULAR: No angina symptoms. No CHF symptoms. No atypical chest pain for CAD. No palpitations. No shortness of breath. GASTROINTESTINAL: No abdominal pain. No nausea or vomiting. No diarrhea or constipation. No hematemesis. No hematochezia. GENITOURINARY: No urgency. No frequency. No dysuria. No hematuria. No obstructive symptoms. No discharge. No pain. No significant abnormal bleeding. MUSCULOSKELETAL: No musculoskeletal pain; no joint swelling. NEUROLOGICAL: No headache. No neck pain. No syncope. No seizures. No dizziness. PSYCHIATRIC: Not anxious. No depression. No suicidal thoughts. No homicidal thoughts. SKIN: No rash. No lesions. No wounds. ENDOCRINE: No unexplained weight loss. No weight gain. HEMATOLOGIC/LYMPHATIC: No anemia. No purpura. No petechiae. No prolonged or excessive bleeding. No palpable lymph nodes. PHYSICAL EXAMINATION: GENERAL: The patient is oriented to time, place and person. VITAL SIGNS: Temperature 97.9, pulse 66, respiratory rate 18, blood pressure 107/58 and pulse 97%. HEENT: Head normocephalic, atraumatic. Eyes: Extraocular muscles are intact. Pupils are equal, round and reactive to light and accommodation. Ears: No lesions. Nose appeared normal. Throat: No exudate or erythema. NECK: Supple. No JVD, no carotid bruit. No lymphadenopathy or thyromegaly. LUNGS: Decreased breath sounds but clear to auscultation. Percussion note normal. Chest symmetrical. HEART: S1, S2, no S3. No murmurs. No cyanosis or clubbing. No ascites. Pulses: Dorsalis pedis and posterior tibial pulses +1 to +2 both sides. ABDOMEN: Soft. Nontender. Bowel sounds active. No CVA tenderness. No mass felt. EXTREMITIES: No edema. Full range of motion of all extremities, equal. NEUROLOGIC: No focal deficit. Cranial nerves II through XII are grossly intact. No headache, no double vision or headache. SKIN: Not dry. Intact. Turgor - normal. LYMPHATIC: No palpable lymph nodes/no lymphedema. MUSCULOSKELETAL: Normal joints with no swelling. Muscle tone is normal. LABS: Hgb 10.8, hct 32, WBC 3,500 normal differential, creatinine 0.8, BUN 12 and potassium 3.8. ASSESSMENT: 1. Acute diverticulitis PLAN: 1. Continue the same medications 2. Diet explained about diverticulosis. 3. The patient says that she is going to start doing exercises which would help a lot. Advised to lose a little weight. CONDITION: Stable TIME SPENT: More than 30 minutes. Plan and coordination of the patient's care discussed in the presence of nurse. ANA M
--- NOTE | 2016-08-09 13:46 | CM.DICTOOL ---
ADMISSION: 08/05/16 06:35 DISCHARGE: 08/09/16 DATE OF SERVICE: 08/09/16 FINAL DIAGNOSIS ACUTE DIVERTICULITIS HISTORY OF DIVERTICULITIS (07/23, 06/20/16 AND 12/17) HISTORY OF DIVERTICULOSIS HYPERTENSION BRADYCARDIA DYSLIPIDEMIA DM, TYPE 2 FATTY LIVER GERD ANEMIA HIATAL HERNIA OBESITY, BMI 30 DDD L5-S1 CHOLECYSTECTOMY HYSTERECTOMY C-SPINE FUSION LAST VITALS Temp Pulse Resp BP Pulse Ox 97.8 F 74 16 108/70 96 08/09/16 05:32 08/09/16 05:32 08/09/16 05:32 08/09/16 05:32 08/09/16 05:32 ACTIVE MEDICATIONS Acetaminophen (Tylenol) 650 mg PO Q4H PRN PRN Reason: Mild Pain Amlodipine Besylate (Norvasc) 2.5 mg PO DAILY [facility] Last Admin: 08/09/16 09:02 Dose: 2.5 mg Aspirin (Aspirin Chewable) 81 mg PO DAILYWM [facility] Last Admin: 08/09/16 08:58 Dose: 81 mg Fenofibrate (Triglide) 160 mg PO DAILY [facility] Last Admin: 08/09/16 09:01 Dose: 160 mg HCTZ/Losartan Potassium (Hyzaar 50-12.5 Mg Tab) 2 tab PO DAILY [facility] Last Admin: 08/09/16 09:01 Dose: 2 tab Ciprofloxacin/Dextrose 400 mg/ (Dextrose) 200 mls @ 200 mls/hr IV Q12HR [facility] ( FINISHED COURSE) Last Admin: 08/09/16 09:03 Dose: 200 mls/hr Metformin (Glucophage) 500 mg PO DAILYWM Metronidazole 500 mg 1 TAB PO Q8HR [facility] Last Admin: 08/09/16 04:22 Dose: 100 mls/hr Flaxseed Oil [Flaxseed Oil] 1,000 mg PO DAILY [facility] Last Admin: 08/09/16 09:04 Dose: Not Given Omeprazole (Prilosec) 20 mg PO QDAC [facility] Last Admin: 08/09/16 05:31 Dose: 20 mg Ondansetron HCl (Zofran 4 Mg/2 Ml) 4 mg IVP Q6H PRN PRN Reason: Nausea / Vomiting Last Admin: 08/06/16 12:08 Dose: 4 mg denotes medications provided during this hospital stay that will be prescribed at discharge ALLERGIES atorvastatin calcium [From Lipitor] Adverse Reaction (Verified 08/05/16 03:40) cephalexin [From Keflex] Adverse Reaction (Verified 08/05/16 03:40) cimetidine [From Tagamet] Adverse Reaction (Verified 08/05/16 03:40) cimetidine HCl [From Tagamet] Adverse Reaction (Verified 08/05/16 03:40) ciprofloxacin Adverse Reaction (Verified 08/05/16 03:40) fenofibrate nanocrystallized [From Tricor] Adverse Reaction (Verified 08/05/16 03:40) fenofibrate,micronized [From Tricor] Adverse Reaction (Verified 08/05/16 03:40) gatifloxacin [From Tequin] Adverse Reaction (Verified 08/05/16 03:40) ibuprofen Adverse Reaction (Verified 08/05/16 03:40) minocycline HCl [From Minocin] Adverse Reaction (Verified 08/05/16 03:40) nitrofurantoin macrocrystal [From Macrodantin] Adverse Reaction (Verified 03:40) olmesartan [From Benicar] Adverse Reaction (Verified 08/05/16 03:40) olmesartan medoxomil [From Benicar] Adverse Reaction (Verified 08/05/16 03:40) Penicillins Adverse Reaction (Verified 08/05/16 03:40) rosuvastatin calcium [From Crestor] Adverse Reaction (Verified 08/05/16 03:40) simvastatin Adverse Reaction (Verified 08/05/16 03:40) Skin Cleanser Combination No.4 [From Minocin] Adverse Reaction (Verified 03:40) Sulfa (Sulfonamide Antibiotics) Adverse Reaction (Verified 08/05/16 03:40) VIBRICILLEN Adverse Reaction (Uncoded 08/05/16 03:40) VICTRIN Adverse Reaction (Uncoded 08/05/16 03:40) NEW PRESCRIPTIONS: FLAGYL 500 MG, TAKE ONE TABLET BY MOUTH EVERY 8 HOURS FOR 5 DAYS ONLY SMOKING: NONSMOKER DISEASE SPECIFIC EDUCATION: DIVERTICULITIS NUTRITION APPROPRIATE FOR DIVERTICULITIS EXERCISE/ACTIVITY FOLLOW UP HOME MEDICATIONS NEW PRESCRIPTIONS LAB REVIEW: 08/09/16 05:30 08/09/16 05:30 08/09/16 05:30: WBC 4.81, RBC 4.02 L, Hgb 11.6 L, Hct 34.4 L, MCV 85.6, MCH 28.9 , MCHC 33.7, RDW Coeff of Linda 13.2, Plt Count 312, Immature Gran % (Auto) 0.4, Neut % (Auto) 60.1, Lymph % (Auto) 26.8, Liberty % (Auto) 10.6 H, Eos % (Auto) 1.5 , Baso % (Auto) 0.6, Immature Gran # (Auto) 0.0, Neut # 2.9, Lymph # 1.3, Liberty # 0.5, Eos # 0.1, Baso # 0.0, Sodium 140, Potassium 3.8, Chloride 105, Carbon Dioxide 26, Anion Gap 12.8, BUN 13, Creatinine 0.95, Estimated GFR (MDRD) 58.00 , BUN/Creatinine Ratio 13.68, Glucose 124 H, Calcium 9.3, Total Bilirubin 0.52, AST 31, ALT 20, Alkaline Phosphatase 42 L, Total Protein 6.6, Albumin 3.7, Globulin 2.9, Albumin/Globulin Ratio 1.28 PLAN: DISCHARGE HOME TODAY RETURN TO SEE DR. REHMAN IN 5-7 DAYS. PLEASE CALL TO SCHEDULE YOUR APPOINTMENT ( [phone]) KEEP YOUR APPOINTMENT WITH DR. ECHAVARRIA ON 08/29/16 RESUME YOUR HOME MEDICATIONS PER LIST PROVIDED BY THE NURSING STAFF NEW PRESCRIPTIONS: FLAGYL 500 MG, TAKE ONE TABLET BY MOUTH EVERY 8 HOURS FOR 5 DAYS ONLY ACTIVITY: GET PLENTY OF REST AT HOME. GRADUALLY INCREASE YOUR ACTIVITY LEVEL ACCORDING TO YOUR TOLERATION SO THAT YOU ARE ABLE TO EXERCISE DAILY DIET: STAY WELL HYDRATED FOLLOW A DIVERTICULITIS DIET CONSISTENT CARBS SUMMARY: THE PATIENT IS ALERT AND ORIENTED X3. SHE CURRENTLY RESIDES AT HOME. SHE IS COMPLETELY INDEPENDENT WITH ALL ADL'S AND IS ABLE TO PROVIDE HER OWN TRANSPORTATION. SHE HAS NO DME, HOME HEALTH OR HOMEMAKING SERVICES. AT DISCHARGE SHE DESIRES TO RETURN TO HER HOME. HER SKIN TURGOR IS INTACT. HYDRATION STATUS IS IMPROVED. THERE ARE NO DECUBITUS ULCERS PRESENT AT DISCHARGE. THE PATIENT OFFERS NO COMPLAINTS OF ABDOMINAL PAIN AND IS ABLE TO TAKE LIQUIDS AND SOFT DIET VERY WELL. SHE IS AGREEABLE FOR DISCHARGE HOME TODAY. EMBER REHMAN M.D.
--- NOTE | 2016-08-15 09:50 | DS ---
DATE OF SERVICE: 08/09/16 FINAL DIAGNOSIS: 1. ACUTE DIVERTICULITIS 2. HISTORY OF DIVERTICULITIS (07/23, 06/20/16 AND 12/17) 3. HISTORY OF DIVERTICULOSIS 4. HYPERTENSION 5. BRADYCARDIA 6. DYSLIPIDEMIA 7. DIABETES MELLITUS TYPE 2 8. FATTY LIVER 9. GERD 10. ANEMIA 11. HIATAL HERNIA 12. OBESITY, BMI 30 13. DDD L5-S1 14. CHOLECYSTECTOMY 15. HYSTERECTOMY 16. C-SPINE FUSION DISCHARGE INSTRUCTIONS: Followup appointment with Dr. Ramirez in 5 to 7 days. Keep appointment with Dr. Tee on 08/29/16. MEDICATIONS AT DISCHARGE: 1. Omeprazole (Prilosec) 20 mg p.o. q.d a.c. 2. Aspirin 81 mg p.o. daily 3. Fenofibrate 134 mg p.o. daily 4. Flaxseed Oil 1,000 mg p.o. daily 5. Amlodipine 2.5 mg p.o. daily 6. Metformin 500 mg p.o. daily with meal 7. Losartan/Hydrochlorothiazide one each p.o. daily 8. Metronidazole (Flagyl) 500 mg p.o. q.8hr #15 9. Ondansetron (Zofran) 4 mg p.o. b.i.d. p.r.n. NEW PRESCRIPTIONS: Flagyl 500 mg take one tablet by mouth every 8 hours for 5 days only DIET INSTRUCTIONS: Stay well-hydrated; follow a diverticulitis diet; consistent carbs. ACTIVITY: Get plenty of rest at home. Gradually increase your activity level according to your toleration so that you are able to exercise daily. SMOKING: Nonsmoker DISEASE SPECIFIC EDUCATION: Diverticulitis Nutrition appropriate for diverticulitis Exercise/activity Follow up Home medications New prescriptions HOSPITAL COURSE: 70-year-old white female hospitalized with acute diverticulitis. The patient was hospitalized on 08/05/16. She has been treated with Flagyl and Cipro. The patient's condition has improved remarkably. For the last two days she is on a soft diet with no abdominal pain. No fever, no chills. On physical examination, left lower quadrant nontender. Bowel sounds are active. She is moving her bowels regularly. She is up and about. The patient was discharged on Flagyl to be taken for 5 days. The patient's diet was discussed. The patient's BMI is close to 30, advised to lose weight, also advised to join the gym and do daily exercises. Advised to cut down on meal size to small meals, frequent and avoid seeds. The patient has declined any referral for any surgical consultation for possibility of surgical intervention for recurrent diverticulitis. CONDITION: Stable TIME SPENT: More than 60 minutes. MTDD
== END 2016-08-09 12:45 | disposition home or self-care (01) | DRG 392 ==
LOC: ED 03:23 → UNDOADMIN 06:33 → MEDSURG A 06:33
PROVIDERS: ADMIT Internal Medicine; ATTEND Internal Medicine
DX: K57.30 Diverticulosis of large intestine without perforation or abscess without bleeding (principal); R10.814 Left lower quadrant abdominal tenderness; E11.9 Type 2 diabetes mellitus without complications; I10 Essential (primary) hypertension; K21.9 Gastro-esophageal reflux disease without esophagitis; K44.9 Diaphragmatic hernia without obstruction or gangrene; E66.9 Obesity, unspecified; E78.5 Hyperlipidemia, unspecified; R00.1 Bradycardia, unspecified; K76.0 Fatty (change of) liver, not elsewhere classified; D64.9 Anemia, unspecified; R11.0 Nausea; Z68.30 Body mass index [BMI] 30.0-30.9, adult; Z90.49 Acquired absence of other specified parts of digestive tract; Z79.84 Long term (current) use of oral hypoglycemic drugs; Z79.899 Other long term (current) drug therapy
CPT/HCPCS: 36415; 80053; 81001; 82550; 82962; 84484; 85025; 93005; 93010; 96372; 99284

== ENCOUNTER 2016-10-01 07:01 | Day surgery (SDC) ==
[2016-10-01] MEDS ORDERED: LIDOCAINE 1% 20 ML MDV ID ONE (08:15)
[2016-10-01] MEDS ORDERED: LIDOCAINE 1% 20 ML MDV ONE (08:15)
[2016-10-01] MEDS ORDERED: DIPRIVAN 20 ML VIAL IVP ONE (10:25)
[2016-10-01 11:28] VITALS: BP 101/67; TEMP 97.6
--- NOTE | 2016-10-02 12:51 | OP ---
INDICATIONS FOR PROCEDURE: 70-year-old female presents for colonoscopy exam. She has had three episodes of diverticulitis this winter. She is scheduled for colonoscopy investigation. She has a history of diverticulitis in years prior to this as well. She also has a family history of colon cancer involving two distant relatives. MEDICATIONS: SEE ANESTHESIA NOTES. PROCEDURE: COLONOSCOPY. REPORT: The risks, benefits, alternatives and limitations were discussed in detail with the patient. Informed consent was obtained. After adequate sedation was achieved, a digital rectal exam revealed good tone, no masses. The colonoscope was introduced into the rectum and advanced under direct visual guidance to the cecum. The cecum was identified by the appendiceal orifice and IC valve. I then slowly withdrew the scope in a circumferential manner examining the mucosa quite carefully. I looked on the proximal and distal side of folds and flexures as best as possible. I was able to retroflex the scope in the right colon and left colon to increase visualization. The colonic mucosa was unremarkable. In the descending colon there were a few small mouth diverticula. Mostly in the sigmoid there are multiple small and large mouth diverticula. No evidence of active diverticulosis. No other mucosal abnormalities including on retroflex view of the anal canal. The prep was good. The withdrawal time was 7 minutes and 40 seconds. The patient tolerated the procedure well with stable vital signs and pulse oximetry throughout. IMPRESSION: 1. DIVERTICULOSIS MOSTLY IN THE SIGMOID COLON BUT A LITTLE IN THE DESCENDING COLON. 2. OTHERWISE UNREMARKABLE COLONOSCOPY. RECOMMENDATIONS: 1. High fiber diet. 2. Office visit as needed. 3. She is interested in speaking to a surgeon about options of surgical intervention for recurrent diverticulitis. Will set her up with Dr. Elma Salazar's group. 4. With her family history of colon cancer, I do suggest a screening colon examination again in 5 years, sooner if there are any signs or symptoms to indicate otherwise. CC: DR. SHERIE VIRAMONTES
== END 2016-10-01 11:40 | disposition home or self-care (01) ==
LOC: SURG 07:01
PROVIDERS: ATTEND Internal Medicine Gastroenterology
DX: K57.30 Diverticulosis of large intestine without perforation or abscess without bleeding (principal); Z80.0 Family history of malignant neoplasm of digestive organs; E11.9 Type 2 diabetes mellitus without complications

== ENCOUNTER 2017-08-29 10:04 | Outpatient (CLI) ==
[2012-12-30 11:41] VITALS: TEMP 98.3
== END 2017-08-29 10:05 | disposition home or self-care (01) ==
LOC: LAB 10:04
PROVIDERS: ATTEND Internal Medicine
DX: D64.9 Anemia, unspecified (principal); E88.81 Metabolic syndrome and other insulin resistance; K86.1 Other chronic pancreatitis; E53.8 Deficiency of other specified B group vitamins
CPT/HCPCS: 36415; 80053; 82607; 84443; 85025

== ENCOUNTER 2017-12-15 12:08 | Outpatient (CLI) ==
[2012-12-30 11:41] VITALS: TEMP 98.3
== END 2017-12-15 12:09 | disposition home or self-care (01) ==
LOC: LAB 12:08
PROVIDERS: ATTEND Internal Medicine
DX: R10.9 Unspecified abdominal pain (principal); K86.1 Other chronic pancreatitis
CPT/HCPCS: 36415; 80053; 82150; 83690; 85025

== ENCOUNTER 2017-12-16 07:13 | Outpatient (CLI) | payer OTHER ==
[2012-12-30 11:41] VITALS: TEMP 98.3
--- NOTE | 2017-12-16 09:34 | CT ---
EXAM: CT of the abdomen pelvis with and without contrast History: Mid abdominal pain. Comparison: CT abdomen pelvis 08/07/2016 Technique: Multiplanar CT images through the abdomen pelvis were obtained with and without the admin istration of IV contrast. Enteric contrast was also administered. Findings: Stable small nodule within the left lower lobe. No acute osseous abnormalities. Moderate to severe degenerative disc disease at L5-S1. The liver is fatty. No change in the simple bilateral renal cysts. Postsurgical changes seen within the upper abdomen. There is pneumobilia seen within the liver and pancreatic duct. There is bush co lonic wall thickening most significant involving the transverse and ascending colon. No bowel obstruc tion. Mesenteric edema and areas of benign fat necrosis. Adrenal glands are unremarkable. No free a ir. No ascites. No bladder wall thickening. Uterus is not seen. Impression: 1. Pancolitis. 2. Postsurgical changes of the bowel. No bowel obstruction. 3. Hepatic steatosis. 4. Pneumobilia.
== END 2017-12-16 07:14 | disposition home or self-care (01) ==
LOC: RAD 07:13
PROVIDERS: ATTEND Internal Medicine
DX: R10.9 Unspecified abdominal pain (principal)

== ENCOUNTER 2019-03-15 08:32 | Outpatient (CLI) | payer OTHER ==
[2012-12-30 11:41] VITALS: TEMP 98.3
== END 2019-03-15 08:33 | disposition home or self-care (01) ==
LOC: RAD 08:32
PROVIDERS: ATTEND Internal Medicine
DX: Z12.31 Encounter for screening mammogram for malignant neoplasm of breast (principal)

== ENCOUNTER 2020-05-30 10:18 | Inpatient (IN) ==
--- NOTE | 2020-05-30 10:44 | ED.PDOC ---
General ED Provider: Dr. ELLA JOHNS Stated Complaint: Rt sided abdominal and flank pain. Symptoms similar to pain she experienced 2-3 months ago when she had a Kidney stone-was tx with Lithotripsy Time Seen by Physician: 10:30 Mode of Arrival: Walk-In Information Source: Patient Exam Limitations: Clinical condition Primary Care Provider: EMBER RAMIREZ Nursing and Triage Documentation Reviewed and Agree: Yes Does patient meet sepsis criteria?: No System Inflammatory Response Syndrome: Not Applicable Sepsis Protocol: For patient's 13 years and over: Temp is 96.8 and below OR 101 and greater Pulse >90 BPM Resp >20/minute Acutely Altered Mental Status Are patient's symptoms suggestive of a new infection, such as: -Pneumonia -Skin, Soft Tissue -Endocarditis -UTI -Bone, Joint Infection -Implantable Device -Acute Abdominal Infection -Wound Infection -Meningitis -Blood Stream Catheter Infection -Unknown Complaint Exam Complaint/Exam Patient Complains of: Reports Pain (Rt Flank-lower abdomen) Onset/Duration: Earlier this AM Symptoms Are: Still present Timing: Constant Episodes of Voiding Over Last 12 Hours: 1 Initial Severity: Moderate Current Severity: Moderate Location of Pain: Reports Right and Flank Character: Reports Sharp, Colicky, Burning and Constant pressure Aggravating: Reports Movement Associated Signs and Symptoms: Reports Nausea and Abdominal Pain; Denies Diaphoresis, Back pain, Fever, Hematuria, Dysuria, Constipation, Blood in stool, Rectal pain, Appetite change, Vomiting, Decreased urine output, Increased urine frequency, Increased thirst, Decreased activity, Lethargy, Bubble bath use, Vaginal bleeding, Vaginal discharge, Genital swelling, Genital blisters and Retained foreign body Review of Systems Review Of Systems Constitutional: Reports No symptoms Eyes: Reports No symptoms Ears, Nose, Mouth, Throat: Reports No symptoms Respiratory: Reports No symptoms Cardiac: Reports No symptoms GI: Reports No symptoms : Reports Flank pain Musculoskeletal: Reports No symptoms Skin: Reports No symptoms Neurological: Reports No symptoms Endocrine: Reports No symptoms Hematologic/Lymphatic: Reports No symptoms All Other Systems: Reviewed and Negative [facility] Medical History (Updated 05/31/20 @ 08:32 by MATIAS YEUNG) Cervical vertebral fusion Diverticulitis Diverticulosis GERD (gastroesophageal reflux disease) Hyperlipidemia Hypertension Pancreatitis Family History Mother Lymphoma, Onset Age: 78 Social History Smoking and tobacco status: Never smoker Surgical History (Updated 05/31/20 @ 08:32 by MATIAS YEUNG) History of appendectomy History of bowel resection History of bunionectomy of both great toes History of partial pancreatectomy History of tonsillectomy Hx of cholecystectomy Status post hysterectomy Female Reproductive History Menstrual Hx Hysterectomy: Yes Hx Tubal Ligation: No Physical Exam Physical Exam Appearance: Reports Well-appearing Ill-appearing: Mild Pain Distress: Mild Eyes: Reports FAVIOLA, EOMI and Conjunctiva clear ENT: Reports Ears normal, Nose normal and Oropharynx normal Respiratory: Reports Airway patent, Breath sounds clear, Breath sounds equal and Respirations nonlabored Cardiovascular: Reports RRR, Pulses normal, No rub and No murmur GI/: Reports Soft, No masses, Bowel sounds normal, No Organomegaly and Tender Musculoskeletal: Reports Normal strength, ROM intact, No edema and No calf tenderness Skin: Reports Warm, Dry and Normal color Neurological: Reports Sensation intact, Motor intact, Reflexes intact, Cranial nerves intact, Alert and Oriented Psychiatric: Reports Affect appropriate and Mood appropriate Interpretation Radiology Interpretation Exam Interpreted: Portable CXR (Mild right medial basilar opacities may represent atelectasis/scar or pneumonia. ) and CT Scan (Bilateral nep hrolithiasis without obstructive uropathy. 2. Question cirrhosis. 3. Diverticulosis.) Physician Notification Case Discussed Physician Notified: Dr Ramirez-recommendded admit, IV antibiotics-Flagyl/Observe repeat laB in AM Time of Notification: 12:30 Critical Care Note Critical Care Note Total Critical Care Time (mins): 0 Course Course Hematology/Chemistry: 06/02/20 05:13 06/02/20 05:13 Orders, Labs, Meds: Lab Review 05/30/20 05/30/20 05/30/20 11:03 11:03 11:03 WBC 5.67 RBC 3.89 L Hgb 11.2 L Hct 33.9 L MCV 87.1 MCH 28.8 MCHC 33.0 RDW Coeff of Linda 14.1 Plt Count 193 Immature Gran % (Auto) 0.2 Neut % (Auto) 60.1 Lymph % (Auto) 28.4 Robertson % (Auto) 9.9 Eos % (Auto) 0.9 Baso % (Auto) 0.5 Neut # (Auto) 3.4 Lymph # (Auto) 1.6 Robertson # (Auto) 0.6 Eos # (Auto) 0.1 Baso # (Auto) 0.0 Immature Gran # (Auto) 0.0 Sodium 139.0 Potassium 3.39 L Chloride 103.0 Carbon Dioxide 29.2 Anion Gap 10.19 BUN 11.2 Creatinine 0.67 Estimated GFR (MDRD) 86.00 BUN/Creatinine Ratio 16.71 Glucose 122.5 H Uric Acid 4.54 Calcium 9.22 Total Bilirubin 0.91 AST 45.6 H ALT 19.2 Alkaline Phosphatase 136.7 Total Creatine Kinase 36.2 Total Protein 7.71 Albumin 4.17 Globulin 3.54 Albumin/Globulin Ratio 1.17 Amylase 37.1 Lipase 33.9 Urine Color Urine Clarity Urine pH Ur Specific [place] Urine Protein Urine Glucose (UA) Urine Ketones Urine Blood Urine Nitrite Urine Bilirubin Urine Urobilinogen Ur Leukocyte Esterase 05/30/20 12:45 WBC RBC Hgb Hct MCV MCH MCHC RDW Coeff of Linda Plt Count Immature Gran % (Auto) Neut % (Auto) Lymph % (Auto) Robertson % (Auto) Eos % (Auto) Baso % (Auto) Neut # (Auto) Lymph # (Auto) [place] # (Auto) Eos # (Auto) Baso # (Auto) Immature Gran # (Auto) Sodium Potassium Chloride Carbon Dioxide Anion Gap BUN Creatinine Estimated GFR (MDRD) BUN/Creatinine Ratio Glucose Uric Acid Calcium Total Bilirubin AST ALT Alkaline Phosphatase Total Creatine Kinase Total Protein Albumin Globulin Albumin/Globulin Ratio Amylase Lipase Urine Color Yellow Urine Clarity Clear Urine pH 7.5 Ur Specific [place] 1.025 Urine Protein Negative Urine Glucose (UA) Negative Urine Ketones Negative Urine Blood Negative Urine Nitrite Negative Urine Bilirubin Negative Urine Urobilinogen 2.0 H Ur Leukocyte Esterase Negative Orders Category Date Time Status ADMIT PATIENT INPATIENT .TO [facility] (MONITORED BED) ADMISSION 05/30/20 13:00 Completed TELEMETRY MONITORING TELE CARE 05/30/20 13:00 Completed IV [ED IV/MEDIPORT/POWERPORT] .ONCE EMERGENCY 05/30/20 10:46 Completed CBC W/ AUTO DIFF Stat LAB 05/30/20 11:03 Completed CMP [COMPREHENSIVE METABOLIC PANEL] Stat LAB 05/30/20 11:03 Completed CPK [CREATINE KINASE] Stat LAB 05/30/20 11:03 Completed UA [URINALYSIS C & S IF INDICATED] Stat LAB 05/30/20 12:45 Completed URIC ACID Stat LAB 05/30/20 11:03 Completed 0.9 % Sodium Chloride [Saline Flush] MEDS 05/30/20 10:44 Discontinued 1 syr IVF PRN PRN Metronidazole/Sodium Chloride [Flagyl 500 mg/100 ml] MEDS 05/30/20 13:30 Disc ontinued 500 mg in [address] ABD/PEL WO RENAL STONE PROT Stat RADS 05/30/20 10:44 Completed Medications Discontinued Medications Generic Name Dose Route Start Last Admin Trade Name Freq PRN Reason Stop Dose Admin Aspirin 81 mg 05/31/20 08:30 06/02/20 09:24 Aspirin 81 Mg Tab.Chew PO 81 mg DAILYWM LUIS DANIEL Administration Dexamethasone Sodium Phosphate 4 mg 05/30/20 16:06 05/30/20 18:04 Dexamethasone Sod Phos 4 Mg/Ml Inj IM 05/30/20 16:07 4 mg ONCE STA Administration Fenofibrate 108 mg 06/01/20 09:00 06/01/20 09:31 Fenofibrate 54 Mg Tablet PO 108 mg EVERY OTHER DAY LUIS DANIEL Administration Metronidazole 500 mg in 100 mls @ 100 mls/hr 05/30/20 13:30 06/02/20 05:27 Flagyl 500 Mg/100 Ml IV 06/02/20 13:29 100 mls/hr Q8HR LUIS DANIEL Administration Potassium Chloride/Sodium Chloride 1,000 mls @ 125 mls/hr 05/30/20 13:27 05/30/20 13:38 Sodium Chloride 0.9%-Kcl 20 Meq IV 05/30/20 21:26 125 mls/hr .Q8H STA Administration Sodium Chloride 1,000 mls @ 100 mls/hr 05/30/20 21:35 06/02/20 00:19 Sodium Chloride IV 100 mls/hr .Q10H LUIS DANIEL Administration Potassium Chloride/Sodium Chloride 1,000 mls @ 100 mls/hr 05/30/20 18:17 05/30/20 18:19 Sodium Chloride 0.9%-Kcl 20 Meq IV 05/30/20 23:26 100 mls/hr .Q10H STA Administration Losartan Potassium 100 mg 05/31/20 09:00 06/02/20 09:24 Losartan Potassium 100 Mg Tablet PO 100 mg DAILY LUIS DANIEL Administration Pantoprazole Sodium 40 mg 05/31/20 06:30 Pantoprazole Sodium 40 Mg Tablet. PO QDAC LUIS DANIEL Pantoprazole Sodium 40 mg 05/30/20 17:00 05/31/20 06:17 Pantoprazole Sodium 40 Mg Tablet. PO Not Given BIDAC LUIS DANIEL Pantoprazole Sodium 40 mg 05/31/20 09:30 06/02/20 09:24 Pantoprazole Sodium 40 Mg Vial IVP 40 mg Q12HR LUIS DANIEL Administration Potassium Chloride 40 meq 05/30/20 16:30 06/02/20 09:23 Potassium Chloride 20 Meq Tab PO 40 meq DAILYWM LUIS DANIEL Administration Sodium Chloride 1 syr 05/30/20 10:44 06/01/20 09:05 0.9% Sodium Chloride 10 Ml Disp.Syrin IVF 1 syr PRN PRN Administration To flush IV Vital Signs: Temp Pulse Resp BP Pulse Ox 05/30/20 10:19 97.8 F 73 18 170/95 H 97 Discharge Plan Discharge Patient Disposition: ADMITTED INPATIENT Discharge Problem: Diverticulosis, Bilateral nephrolithiasis, Abdominal pain, Hypokalemia, Hypertension ED Provider: ELLA JOHNS Condition: Stable Physician Progress Note: []
[2020-05-30 11:21] LABS: BASOPHILS % (AUTO) 0.5 % (0.0-3.0); EOSINOPHILS # (AUTO) 0.1 K/ul (0.0-0.7); EOSINOPHILS % (AUTO) 0.9 % (0.0-7.0); HEMATOCRIT 33.9 % (37.0-47.0); HEMOGLOBIN 11.2 g/dl (12.0-16.0); IMMATURE GRANULOCYTE % (AUTO) 0.2 % (0.0-5.0); LYMPHOCYTES # (AUTO) 1.6 K/uL (0.60-3.4); LYMPHOCYTES % (AUTO) 28.4 (10.0-50.0); MEAN CORPUSCULAR HEMOGLOBIN 28.8 pg (27.0-31.0); MEAN CORPUSCULAR VOLUME 87.1 fl (81.0-99.0); MONOCYTES # (AUTO) 0.6 K/uL (0.4-2.0); MONOCYTES % (AUTO) 9.9 (0-10); NEUTROPHILS # (AUTO) 3.4 K/ul (2.0-6.9); NEUTROPHILS % (AUTO) 60.1 % (42.2-75.2); PLATELET COUNT 193 10^3/uL (140-440); RDW COEFFICIENT OF VARIATION 14.1 % (11.6-14.8); RED BLOOD COUNT 3.89 10^6/ul (4.20-5.40); WHITE BLOOD COUNT 5.67 K/ul (4.6-10.2)
[2020-05-30 11:23] LABS: ALANINE AMINOTRANSFERASE 19.2 U/L (0-35); ALBUMIN 4.17 g/dL (3.5-5.0); ALKALINE PHOSPHATASE 136.7 U/L (53-141); ASPARTATE AMINO TRANSFERASE 45.6 U/L (14-36); BILIRUBIN,TOTAL 0.91 mg/dL (0.2-1.3); BLOOD UREA NITROGEN 11.2 mg/dL (7-17); CALCIUM 9.22 mg/dL (8.4-10.2); CARBON DIOXIDE 29.2 mmol/L (22-30.0); CREATINE KINASE 36.2 U/L (30-135); CREATININE 0.67 mg/dL (0.60-1.30); GLUCOSE 122.5 mg/dL (74-106); POTASSIUM 3.39 mmol/L (3.5-5.1); TOTAL PROTEIN 7.71 g/dL (6.3-8.2); URIC ACID 4.54 mg/dL (2.5-6.2)
--- NOTE | 2020-05-30 11:48 | CT ---
EXAM: CT Abdomen without contrast. CT Pelvis without contrast. HISTORY: Right flank pain. Right lower quadrant pain. COMPARISON: 04/02/2020, 12/16/2017. TECHNIQUE: Multiple axial images of the abdomen and pelvis were obtained without intravenous contras t. Images were reformatted in the sagittal and coronal plane. FINDINGS: Please note that evaluation of the abdominal and pelvic structures is limited due to lack of intravenous contrast. Dependent atelectasis and calcified granulomatous changes noted in the lung bases. Tiny amount of ri ght pleural fluid suggested as well. Degenerative changes present in the spine, greatest at L5-S1. Gallbladder absent. Liver demonstrates nodular surface contour. Suspect Whipple procedure. Pancreatic head not well see n. Pneumobilia noted. Pancreatic tail is normal. Spleen and adrenal glands are normal. Peripelvic cysts present in both kidneys. Bilateral nephrolithiasis noted. There is no hydronephros is. Mild bilateral perinephric fat stranding stable from prior imaging. Ureters are not dilated. N o ureteral calculi are seen. No bladder calculi identified. Bladder normal. The gastrojejunostomy changes again noted. The bowel is normal in caliber without obstruction or inf lammation. Diverticulosis noted. Appendix normal. No free fluid or free air detected. IMPRESSION: 1. Bilateral nephrolithiasis without obstructive uropathy. 2. Question cirrhosis. 3. Diverticulosis.
[2020-05-30 13:01] LABS: BILIRUBIN,URINE Negative (NEGATIVE); CLARITY,URINE Clear (CLEAR); COLOR,URINE Yellow (YELLOW); GLUCOSE, URINE (UA) Negative (NEGATIVE); KETONES,URINE Negative (NEGATIVE); LEUKOCYTE ESTERASE ,URINE Negative (NEGATIVE); NITRITE,URINE Negative (NEGATIVE); PH,URINE 7.5 (5-9); PROTEIN,URINE Negative (NEGATIVE); URINE, BLOOD Negative (NEGATIVE)
[2020-05-30] MEDS ORDERED: POTASSIUM CHLORIDE 10 MEQ VIAL- ADDITIVE ONLY 10 MEQ in SODIUM CHLORIDE 1,000 ML IV STA (13:01)
[2020-05-30] MEDS ORDERED: SODIUM CHLORIDE 0.9%-KCL 20 MEQ 1,000 ML IV STA ×2 (13:27→18:17)
--- NOTE | 2020-05-30 14:26 | CT ---
EXAM: CT lumbar spine without contrast. HISTORY: Back pain. COMPARISON: Abdominal CT earlier the same day. TECHNIQUE: Multiple axial images of the lumbar spine were obtained without intravenous contrast. Im ages were reformatted in the sagittal and coronal planes. FINDINGS: Retrolisthesis of L5 on S1 by 0.2 cm with moderate disc space narrowing noted. Alignment otherwise normal. Mild loss of disc height at L2-3 noted. Disc heights are otherwise normal. Verte bral body heights maintained without acute fracture. No significant paravertebral abnormality identi fied. T12-L1: Facet arthropathy without neural compromise. L1-2: Facet arthropathy without neural compromise. L2-3: Disc osteophyte formation and facet arthropathy with minimal neural foraminal narrowing. L3-4: Disc osteophyte formation, facet arthropathy thickening of ligamentum flavum with mild central canal stenosis. L4-5: Disc osteophyte formation, facet arthropathy and thickening of ligamentum flavum with flatteni ng of the ventral thecal sac and minimal left neural foraminal narrowing. L5-S1: Disc osteophyte formation and facet arthropathy with mild right and moderate left neural fora chaim narrowing. IMPRESSION: 1. No acute abnormality of the lumbar spine. 2. Generally mild multilevel degenerative changes.
[2020-05-30 14:37] VITALS: BMI 27.7
[2020-05-30] MEDS: FLAGYL 500 MG/100 ML 500 MG/100 ML BAG IV SCH ×2 (15:14→21:15)
[2020-05-30] MEDS ORDERED: DECADRON IM STA (16:06)
[2020-05-30 16:34] LABS: AMYLASE 37.1 U/L (30-110); LIPASE 33.9 U/L (23-300)
[2020-05-30] MEDS: K-DUR PO SCH (18:04)
[2020-05-30] MEDS: PROTONIX PO SCH (18:04)
[2020-05-31] MEDS: SODIUM CHLORIDE 1,000 ML IV SCH ×2 (01:42→12:46)
[2020-05-31] MEDS: FLAGYL 500 MG/100 ML 500 MG/100 ML BAG IV SCH ×3 (05:26→20:43)
[2020-05-31 05:34] LABS: BASOPHILS % (AUTO) 0.3 % (0.0-3.0); HEMATOCRIT 32.8 % (37.0-47.0); HEMOGLOBIN 10.7 g/dl (12.0-16.0); IMMATURE GRANULOCYTE % (AUTO) 0.3 % (0.0-5.0); LYMPHOCYTES # (AUTO) 0.8 K/uL (0.60-3.4); LYMPHOCYTES % (AUTO) 21.1 (10.0-50.0); MEAN CORPUSCULAR HEMOGLOBIN 27.7 pg (27.0-31.0); MEAN CORPUSCULAR HGB CONC 32.6 (31.8-35.4); MONOCYTES # (AUTO) 0.2 K/uL (0.4-2.0); MONOCYTES % (AUTO) 4.8 (0-10); NEUTROPHILS # (AUTO) 2.9 K/ul (2.0-6.9); NEUTROPHILS % (AUTO) 73.5 % (42.2-75.2); PLATELET COUNT 199 10^3/uL (140-440); RED BLOOD COUNT 3.86 10^6/ul (4.20-5.40); WHITE BLOOD COUNT 3.99 K/ul (4.6-10.2)
[2020-05-31 05:49] LABS: ALANINE AMINOTRANSFERASE 17.9 U/L (0-35); ALBUMIN 3.87 g/dL (3.5-5.0); ALKALINE PHOSPHATASE 132.3 U/L (53-141); ASPARTATE AMINO TRANSFERASE 36.4 U/L (14-36); BILIRUBIN,TOTAL 0.61 mg/dL (0.2-1.3); BLOOD UREA NITROGEN 10.2 mg/dL (7-17); CALCIUM 8.92 mg/dL (8.4-10.2); CARBON DIOXIDE 22.6 mmol/L (22-30.0); CREATININE 0.55 mg/dL (0.60-1.30); GLUCOSE 159.4 mg/dL (74-106); POTASSIUM 4.21 mmol/L (3.5-5.1); SODIUM 137.3 mmol/L (134.5-145); TOTAL PROTEIN 7.24 g/dL (6.3-8.2)
[2020-05-31] MEDS: PROTONIX PO SCH (06:17)
[2020-05-31] MEDS ORDERED: PROTONIX PO SCH (06:30)
--- NOTE | 2020-05-31 08:48 | HP ---
DATE OF SERVICE: 05/30/20 HISTORY OF PRESENT ILLNESS: This 74-year-old white female who presents to the emergency room complaining of right-sided abdominal and flank pain. She does have a history of right kidney stone, has previously seen Dr. Vogt, had lithotripsy at the end of April. Repeat scan showed stones have resolved and there was no ureteral stone after the lithotripsy with Dr. Vogt. PAST MEDICAL HISTORY: Bilateral nephrolithiasis Pulmonary nodules per CT scan 03/26 History of early diverticulosis History of bronchitis History of atypical chest pain, left radiating to the neck Lactose intolerance Fatty liver Hypothyroidism Vocal cord injury causing dysphonia Dyslipidemia Degenerative disk disease of the spine GERD Diabetes mellitus type 2, A1C of 6.6 on 02/23 Anemia B12 deficiency History of pancreatitis - had a pseudocyst, Whipple procedure done in [facility] PAST SURGICAL HISTORY: Status post cholecystectomy Whipple procedure by Dr. Lewis Spine surgery Colonoscopy 03/[address] Randal Martin with a pyelogram by Dr. Vogt in April of 2020 REVIEW OF SYSTEMS: CONSTITUTIONAL: No night sweats. No fatigue, malaise, lethargy. No fever or chills. HEENT: Eyes: No visual changes. No eye pain. No eye discharge. ENT: No runny nose. No epistaxis. No sinus pain. No sore throat. No odynophagia. No ear pain. No congestion. RESPIRATORY: No cough, no congestion. No hemoptysis. No shortness of breath. CARDIOVASCULAR: No angina symptoms. No CHF symptoms. No atypical chest pain for CAD. No palpitations. No PND. No orthopnea. GASTROINTESTINAL: Right lower abdominal pain, right lower flank pain. No nausea or vomiting. No diarrhea or constipation. No hematemesis. No hematochezia. GENITOURINARY: No dysuria. No fever. MUSCULOSKELETAL: No musculoskeletal pain. No joint swelling. No arthritis. NEUROLOGICAL: No headache. No neck pain. No syncope. No seizures. No dizziness. PSYCHIATRIC: Not anxious. No depression. No suicidal thoughts. No homicidal thoughts. SKIN: No rash. No lesions. No wounds. ENDOCRINE: No unexplained weight loss. No weight gain. HEMATOLOGIC/LYMPHATIC: No anemia. No purpura. No petechiae. No prolonged or excessive bleeding. No palpable lymph nodes. PERSONAL/FAMILY/SOCIAL HISTORY: She is . She currently lives at home. She has strong family support. No alcohol or illicit drug use. She is a nonsmoker. MEDICATIONS: Aspirin 81 mg p.o. daily Fenofibrate micronized 134 mg p.o. every other day Pantoprazole 40 mg p.o. daily Losartan 100 mg p.o. daily Loperamide 2 mg p.o. q1-4h p.r.n. ALLERGIES: MINOCYCLINE, NITROFURANTOIN, CIMETIDINE, ATORVASTATIN, FENOFIBRATE, OLMESARTAN MEDOXOMIL, ROSUVASTATIN CALCIUM, SKIN CLEANSER COMBINATION #4, FENOFIBRATE NANOCRYSTALLIZED FROM TRICOR, PENICILLINS, SULFA, IBUPROFEN, CEPHALEXIN, DOXYCYCLINE, CIPROFLOXACIN, METRONIDAZOLE, CIMETIDINE (FROM TAGAMET), SIMVASTATIN, GATIFLOXACIN, VIBRICILLEN, VICTRIN, VECTRIN, PHYSICAL EXAMINATION: VITAL SIGNS: Temperature 97.8, heart rate 73, respirations 18, blood pressure 170/95, pulse ox 97%. HEENT: Head normocephalic, atraumatic. Eyes: Extraocular muscles are intact. Pupils are equal, round and reactive to light and accommodation. Ears: No lesions. Nose appeared normal. Throat: No exudate or erythema. NECK: Supple. No JVD, no carotid bruit. No lymphadenopathy or thyromegaly. LUNGS: Diminished breath sounds. Clear to auscultation. Percussion note normal. Chest symmetrical. HEART: S1, S2, no S3. No murmur. No cyanosis or clubbing. No ascites. Pulses: Dorsalis pedis and posterior tibial pulses +1 to +2 bilaterally. ABDOMEN: Very mild right mid abdominal tenderness. No CVA tenderness. Does report pain. EXTREMITIES: No leg edema. Full range of motion of all extremities, equal. NEUROLOGIC: Alert and oriented. No focal deficit. Cranial nerves II through XII are grossly intact. No headache, no double vision or headache. SKIN: Not dry. Intact. Turgor - normal. LYMPHATIC: No palpable lymph nodes/no lymphedema. MUSCULOSKELETAL: Normal joints with no swelling. Muscle tone is normal. LABS/IMAGING: White count 5.67, hemoglobin 11.2, hematocrit 33.9, platelets 193. Sodium 139, potassium 3.39, BUN 11, creatinine 0.67, glucose 122. Urine is normal. AST 45, ALT 19. CT of the abdomen and pelvis shows bilateral nephrolithiasis with no obstructive uropathy, no hydronephrosis, questionable liver cirrhosis, diverticulosis. There is no ureteral nephrolithiasis, no ureteral calculi are seen, no bladder calculi seen. Bladder is normal. CT of the L-spine shows retrolisthesis of L5 on S1 with moderate disk space narrowing noted. Multilevel degenerative changes. ASSESSMENT: 1. Right flank and abdominal pain. 2. Hypokalemia. 3. Hypertension. 4. Anemia. 5. Bilateral nephrolithiasis. 6. History of right renal calculus. 7. Fatty liver. 8. Hypothyroidism. 9. Dyslipidemia. 10. Diabetes mellitus Type 2. 11. History of pancreatitis. 12. Hypertension. PLAN: 1. We will admit. 2. Routine telemetry orders. 3. CBC, CMP daily. 4. 1 cc Decadron IM. 5. Continue home medications. 6. NS at 75 cc/hr. 7. Potassium 40 mEq p.o. b.i.d. 8. Regular diet. 9. Vasotec 1.25 mg IV q.6hr p.r.n. for systolic greater than 160. 10. Will follow closely. TIME SPENT: More than 70 minutes. MTDD
[2020-05-31] MEDS ORDERED: LOVENOX SUBCUT SCH (09:00)
--- NOTE | 2020-05-31 09:48 | PCM.PROG ---
Attending Provider: ATTENDING PROVIDER: Dr. EMBER REHMAN This patient is seen with Venessa Barros, Nurse Practitioner. DATE OF SERVICE: 05/31/20 SUBJECTIVE: This 74 year old /WHITE F was hospitalized 05/30/20. The patient is resting comfortably. Still with abdominal pain. Right upper quadrant pain,tender to palpation. Complaining of flank pain although not tender. No change in bowel movement. CT with contrast was normal. REVIEW OF SYSTEMS: CONSTITUTIONAL: No night sweats. No fatigue, malaise, lethargy. No fever or chills. HEENT: Eyes: No visual changes. No eye pain. No eye discharge. ENT: No runny nose. No epistaxis. No sinus pain. No odynophagia. No congestion. RESPIRATORY: No cough, no congestion. No hemoptysis. No shortness of breath. CARDIOVASCULAR: No angina symptoms. No CHF symptoms. No atypical chest pain for CAD. No palpitations. No orthopnea.. GASTROINTESTINAL: No abdominal pain. No nausea or vomiting. No diarrhea or constipation. No hematemesis. No hematochezia. GENITOURINARY: No urgency. No frequency. No dysuria. No hematuria. No obstruct susan symptoms. No discharge. No pain. No significant abnormal bleeding. MUSCULOSKELETAL: No musculoskeletal pain; no joint swelling. Right upper quadrant pain. Right flank pain. NEUROLOGICAL: Awake, alert, oriented to time, place and person. No headache. No neck pain. No syncope. No seizures. No dizziness. PSYCHIATRIC: Not anxious. No depression. No suicidal thoughts. No homicidal thoughts. SKIN: No rash. No lesions. No wounds. ENDOCRINE: No unexplained weight loss. No weight gain. HEMATOLOGIC/LYMPHATIC: No anemia. No purpura. No petechiae. No prolonged or excessive bleeding. No palpable lymph nodes. PHYSICAL EXAMINATION: GENERAL: The patient is awake, alert and oriented, lying in bed in no distress. VITAL SIGNS: Temperature 97 F, Pulse 58, Respiratory Rate 18, BP 164/68, Pulse Ox 94% HEENT: Head normocephalic, atraumatic. Eyes: Extraocular muscles are intact. Pupils are equal, round and reactive to light and accommodation. Ears: No lesions. Nose appeared normal. Throat: No exudate or erythema. NECK: Supple. No JVD, no carotid bruit. No lymphadenopathy or thyromegaly. LUNGS: Clear to auscultation. Percussion note normal. Chest symmetrical. HEART: S1, S2, no S3. No murmurs. No cyanosis or clubbing. No ascites. Pulses: Dorsalis pedis and posterior tibial pulses +1 to +2 both sides. ABDOMEN: Soft. Bowel sounds active. No CVA tenderness. No mass felt. Right upper quadrant tenderness. EXTREMITIES: No edema. Full range of motion of all extremities, equal. NEUROLOGIC: No focal deficit. Cranial nerves II through XII are grossly intact. No headache, no double vision or headache. SKIN: Not dry. Intact. Turgor-normal. LYMPHATIC: No palpable lymph nodes/no lymphedema. MUSCULOSKELETAL: Normal joints with no swelling. Muscle tone is normal. LAB REVIEW: 05/31/20 05:12 05/31/20 05:12 05/31/20 05:12: Sodium 137.3, Potassium 4.21, Chloride 107.0, Carbon Dioxide 22.6, Anion Gap 11.91, BUN 10.2, Creatinine 0.55 L, Estimated GFR (MDRD) 107.00, BUN/Creatinine Ratio 18.54, Glucose 159.4 H, Calcium 8.92, Total Bilirubin 0.61, AST 36.4 H, ALT 17.9, Alkaline Phosphatase 132.3, Total Protein 7.24, Albumin 3.87, Globulin 3.37, Albumin/Globulin Ratio 1.14 05/31/20 05:12: WBC 3.99 L, RBC 3.86 L, Hgb 10.7 L, Hct 32.8 L, MCV 85.0, MCH 27.7, MCHC 32.6, RDW Coeff of Linda 14.0, Plt Count 199, Immature Gran % (Auto) 0.3, Neut % (Auto) 73.5, Lymph % (Auto) 21.1, [place] % (Auto) 4.8, Eos % (Auto) 0.0, Baso % (Auto) 0.3, Neut # (Auto) 2.9, Lymph # (Auto) 0.8, [place] # (Auto) 0.2 L, Eos # (Auto) 0.0, Baso # (Auto) 0.0, Immature Gran # (Auto) 0.0 05/30/20 12:45: Urine Color Yellow, Urine Clarity Clear, Urine pH 7.5, Ur Specific [place] 1.025, Urine Protein Negative, Urine Glucose (UA) Negative, Urine Ketones Negative, Urine Blood Negative, Urine Nitrite Negative, Urine Bilirubin Negative, Urine Urobilinogen 2.0 H, Ur Leukocyte Esterase Negative 05/30/20 11:03: Amylase 37.1, Lipase 33.9 05/30/20 11:03: Sodium 139.0, Potassium 3.39 L, Chloride 103.0, Carbon Dioxide 29.2, Anion Gap 10.19, BUN 11.2, Creatinine 0.67, Estimated GFR (MDRD) 86.00, BUN/Creatinine Ratio 16.71, Glucose 122.5 H, Uric Acid 4.54, Calcium 9.22, Total Bilirubin 0.91, AST 45.6 H, ALT 19.2, Alkaline Phosphatase 136.7, Total Creatine Kinase 36.2, Total Protein 7.71, Albumin 4.17, Globulin 3.54, Albumin/Globulin Ratio 1.17 05/30/20 11:03: WBC 5.67, RBC 3.89 L, Hgb 11.2 L, Hct 33.9 L, MCV 87.1, MCH 28.8, MCHC 33.0, RDW Coeff of Linda 14.1, Plt Count 193, Immature Gran % (Auto) 0.2, Neut % (Auto) 60.1, Lymph % (Auto) 28.4, [place] % (Auto) 9.9, Eos % (Auto) 0.9, Baso % (Auto) 0.5, Neut # (Auto) 3.4, Lymph # (Auto) 1.6, [place] # (Auto) 0.6, Eos # (Auto) 0.1, Baso # (Auto) 0.0, Immature Gran # (Auto) 0.0 ASSESSMENT: Please see below. 1. Right upper quadrant tenderness 2. Bilateral nephrolithiasis 3. Diverticulosis PLAN: 1. Stope Lovenox 2. CT scan of the abdomen and pelvis with and without contrast with renal protocol 3. Discontinue PO Protonix 4. Start Protonix 40mg Q 12 hours IV. Plan and coordination of the patient's care discussed in the presence of In Home Tutor and nurse. SCRIBED BY: Ashish ORTIZ scribed while in presence of service performed by Dr. Rehman/Venessa Barros APRN on 05/31/20 ([id number])
[2020-05-31] MEDS: PROTONIX IV IVP SCH ×2 (10:21→20:10)
[2020-05-31] MEDS: ASPIRIN CHEWABLE PO SCH (10:22)
[2020-05-31] MEDS: COZAAR PO SCH (10:23)
[2020-05-31] MEDS: K-DUR PO SCH (10:24)
--- NOTE | 2020-05-31 10:26 | DI ---
EXAM: Chest two views HISTORY: Epigastric tenderness, hypertension COMPARISON: 04/02/2020 TECHNIQUE: Two views of the chest were performed FINDINGS: Normal heart size. Normal mediastinal contour. Mild right medial basilar opacities. Sophie ining lungs are clear. No pleural effusion or pneumothorax. No acute osseous abnormality. IMPRESSION: Mild right medial basilar opacities may represent atelectasis/scar or pneumonia.
--- NOTE | 2020-05-31 10:42 | CT ---
EXAM: CT Abdomen with contrast. CT Pelvis with contrast. HISTORY: Abdominal, epigastric pain. COMPARISON: 05/30/2020, 04/02/2020, 12/16/2017. TECHNIQUE: Multiple axial images of the abdomen and pelvis were obtained following intravenous admin istration of 75 mL of Omnipaque 350, low osmolar. Images were reformatted in the sagittal and wood l plane. FINDINGS: Dependent subsegmental atelectasis seen in both lung bases. Trace amount of right pleural fluid difficult to exclude. Trace amount of pericardial fluid noted. Heart is mildly enlarged. There are degenerative changes present in the spine, greatest at L5-S1. Subtle nodular hepatic surface contour. There is slightly low density compared to the spleen. Gallb ladder absent. Mild pneumobilia noted. Whipple procedure changes noted. Pancreatic tail is normal. Spleen and adrenal glands are unremarkable. Peripelvic cysts present in the kidneys. Stable poste rior right renal calcification which could be a nonobstructing stone or cortical calcification. Ther e is no jac hydronephrosis. Ureters not dilated. Stable retroperitoneal stranding, predominately perinephric. Bladder collapsed. Uterus absent. There is no bowel obstruction. Diastases of the rectus abdominus muscles protrusion of a small bowel loop on axial image 55 noted with no associated inflammation. Appendix normal. Mild diverticulosis noted. No free fluid, free air or lymphadenopathy detected. Stable mesenteric lymph nodes measure up to 0.9 cm on axial image 41. Since prior study, findings are not significantly changed. IMPRESSION: 1. No acute abnormality in the abdomen or pelvis. 2. Stable Whipple procedure changes. 3. Fatty infiltration of the liver. Question cirrhosis.
--- NOTE | 2020-05-31 11:13 | PN ---
DATE OF SERVICE: 05/30/20 SUBJECTIVE: The patient was seen and examined in the emergency room. The patient was hospitalized with back pain going in a girdle type of fashion to the right lower quadrant, also had some tenderness on the right flank and right lower quadrant. CT scan is negative except for nephrolithiasis which is nonobstructing. PHYSICAL EXAMINATION: HEENT: Head normocephalic, atraumatic. Eyes: Extraocular muscles are intact. Pupils are equal, round and reactive to light and accommodation. Ears: No lesions. Nose appeared normal. Throat: No exudate or erythema. NECK: Supple. No JVD, no carotid bruit. No lymphadenopathy or thyromegaly. LUNGS: Clear to auscultation. Percussion note normal. Chest symmetrical. HEART: S1, S2, no S3. No murmurs. No cyanosis or clubbing. No ascites. Pulses: Dorsalis pedis and posterior tibial pulses +1 to +2 bilaterally. ABDOMEN: Soft. Nontender. Bowel sounds active. No CVA tenderness. No mass felt. EXTREMITIES: No edema. Full range of motion of all extremities, equal. NEUROLOGIC: No focal deficit. Cranial nerves II through XII are grossly intact. No headache, no double vision or headache. SKIN: Not dry. Intact. Turgor - normal. LYMPHATIC: No palpable lymph nodes/no lymphedema. MUSCULOSKELETAL: Normal joints with no swelling. Muscle tone is normal. The patient had modified Whipple surgery done for pancreatic problems done. There was no cancer. She has done well. The patient had no nausea, no vomiting. Bowel movements are regular. Appetite is acceptable. The patient will undergo also CT scan of the lumbosacral spine. The patient's pain could be from radiculopathy, no rash seen. No evidence of any herpes zoster at the present time. CONDITION: Stable. TIME SPENT: More than 30 minutes. Plan and coordination of the patient's care discussed in the presence of nurse. ANA M
[2020-06-01 04:56] LABS: BASOPHILS % (AUTO) 0.4 % (0.0-3.0); EOSINOPHILS # (AUTO) 0.1 K/ul (0.0-0.7); EOSINOPHILS % (AUTO) 2.1 % (0.0-7.0); HEMATOCRIT 33.4 % (37.0-47.0); HEMOGLOBIN 10.9 g/dl (12.0-16.0); IMMATURE GRANULOCYTE % (AUTO) 0.4 % (0.0-5.0); LYMPHOCYTES # (AUTO) 1.9 K/uL (0.60-3.4); LYMPHOCYTES % (AUTO) 37.1 (10.0-50.0); MEAN CORPUSCULAR HEMOGLOBIN 27.9 pg (27.0-31.0); MEAN CORPUSCULAR HGB CONC 32.6 (31.8-35.4); MEAN CORPUSCULAR VOLUME 85.6 fl (81.0-99.0); MONOCYTES # (AUTO) 0.4 K/uL (0.4-2.0); MONOCYTES % (AUTO) 6.8 (0-10); NEUTROPHILS # (AUTO) 2.8 K/ul (2.0-6.9); NEUTROPHILS % (AUTO) 53.2 % (42.2-75.2); PLATELET COUNT 219 10^3/uL (140-440); RDW COEFFICIENT OF VARIATION 14.1 % (11.6-14.8); WHITE BLOOD COUNT 5.18 K/ul (4.6-10.2)
[2020-06-01] MEDS: FLAGYL 500 MG/100 ML 500 MG/100 ML BAG IV SCH ×3 (05:05→20:11)
[2020-06-01 05:11] LABS: ALANINE AMINOTRANSFERASE 21.5 U/L (0-35); ALBUMIN 4.03 g/dL (3.5-5.0); ALKALINE PHOSPHATASE 131.2 U/L (53-141); BILIRUBIN,TOTAL 0.47 mg/dL (0.2-1.3); BLOOD UREA NITROGEN 10.3 mg/dL (7-17); CALCIUM 8.85 mg/dL (8.4-10.2); CARBON DIOXIDE 22.6 mmol/L (22-30.0); CHLORIDE 105.8 mmol/L (98-107); CREATININE 0.72 mg/dL (0.60-1.30); GLUCOSE 139.9 mg/dL (74-106); POTASSIUM 3.81 mmol/L (3.5-5.1); SODIUM 138.6 mmol/L (134.5-145); TOTAL PROTEIN 7.34 g/dL (6.3-8.2)
[2020-06-01] MEDS ORDERED: FENOFIBRATE MICRONIZED 134 MG PO SCH (09:00)
[2020-06-01] MEDS ORDERED: TRIGLIDE PO SCH (09:00)
[2020-06-01] MEDS: PROTONIX IV IVP SCH ×2 (09:05→20:32)
[2020-06-01] MEDS: ASPIRIN CHEWABLE PO SCH (09:31)
[2020-06-01] MEDS: K-DUR PO SCH (09:31)
[2020-06-01] MEDS: COZAAR PO SCH (09:32)
[2020-06-01] MEDS: SODIUM CHLORIDE 1,000 ML IV SCH (14:03)
[2020-06-02] MEDS: SODIUM CHLORIDE 1,000 ML IV SCH ×2 (00:18→00:19)
[2020-06-02] MEDS: FLAGYL 500 MG/100 ML 500 MG/100 ML BAG IV SCH (05:27)
[2020-06-02 05:28] LABS: EOSINOPHILS # (AUTO) 0.1 K/ul (0.0-0.7); EOSINOPHILS % (AUTO) 2.6 % (0.0-7.0); HEMOGLOBIN 10.7 g/dl (12.0-16.0); IMMATURE GRANULOCYTE % (AUTO) 0.2 % (0.0-5.0); LYMPHOCYTES # (AUTO) 1.7 K/uL (0.60-3.4); LYMPHOCYTES % (AUTO) 40.1 (10.0-50.0); MEAN CORPUSCULAR HEMOGLOBIN 27.8 pg (27.0-31.0); MEAN CORPUSCULAR HGB CONC 32.4 (31.8-35.4); MEAN CORPUSCULAR VOLUME 85.7 fl (81.0-99.0); MONOCYTES # (AUTO) 0.4 K/uL (0.4-2.0); MONOCYTES % (AUTO) 9.1 (0-10); PLATELET COUNT 200 10^3/uL (140-440); RED BLOOD COUNT 3.85 10^6/ul (4.20-5.40); WHITE BLOOD COUNT 4.19 K/ul (4.6-10.2)
[2020-06-02 05:29] VITALS: BP 145/68; TEMP 97
[2020-06-02 05:47] LABS: ALBUMIN 3.63 g/dL (3.5-5.0); ALKALINE PHOSPHATASE 107.6 U/L (53-141); ASPARTATE AMINO TRANSFERASE 53.7 U/L (14-36); BILIRUBIN,TOTAL 0.6 mg/dL (0.2-1.3); BLOOD UREA NITROGEN 11.2 mg/dL (7-17); CALCIUM 8.71 mg/dL (8.4-10.2); CARBON DIOXIDE 22.4 mmol/L (22-30.0); CHLORIDE 106.8 mmol/L (98-107); CREATININE 0.75 mg/dL (0.60-1.30); GLUCOSE 117.3 mg/dL (74-106); POTASSIUM 3.76 mmol/L (3.5-5.1); SODIUM 137.7 mmol/L (134.5-145); TOTAL PROTEIN 6.65 g/dL (6.3-8.2)
[2020-06-02] MEDS: K-DUR PO SCH (09:23)
[2020-06-02] MEDS: COZAAR PO SCH (09:24)
[2020-06-02] MEDS: ASPIRIN CHEWABLE PO SCH (09:24)
[2020-06-02] MEDS: PROTONIX IV IVP SCH (09:24)
--- NOTE | 2020-06-05 14:08 | PN ---
DATE OF SERVICE: 05/31/2020 SUBJECTIVE: 74 year old white female hospitalized with abdominal pain. The patient's pain could be radiculopathy. In any case the patient has multiple medical and surgical problems. She had extensive surgery modified Whipple surgery and also has diverticulosis of colon and nephrolithiasis. The patient was seen and examined with the Nurse Practitioner. Repeat CAT scan will be done with contrast. CONDITION: Stable. TIME SPENT: More than 30 minutes. Plan and coordination of the patient's care discussed in the presence of nurse. ANA M
--- NOTE | 2020-06-06 13:19 | PN ---
DATE OF SERVICE: 06/01/2020 SUBJECTIVE: 74 year old white female hospitalized on 05/30/20 with abdominal pain. The patient's condition has improved. She is feeling better. Appetite is practically normal. Had a good bowel movement. Still has some tenderness in the flank right lower quadrant more like radiculopathy. REVIEW OF SYSTEMS: CONSTITUTIONAL: No night sweats. No fatigue, malaise, lethargy. No fever or chills. HEENT: Eyes: No visual changes. No eye pain. No eye discharge. ENT: No runny nose. No epistaxis. No sinus pain. No sore throat. No odynophagia. No congestion. RESPIRATORY: No cough, no congestion. No hemoptysis. No shortness of breath. CARDIOVASCULAR: No angina symptoms. No CHF symptoms. No atypical chest pain for CAD. No palpitations. No PND. No orthopnea. GASTROINTESTINAL: Mild abdominal discomfort. No nausea or vomiting. No diarrhea or constipation. No hematemesis. No hematochezia. GENITOURINARY: No urgency. No frequency. No dysuria. No hematuria. No obstructive symptoms. No discharge. No pain. No significant abnormal bleeding. MUSCULOSKELETAL: No musculoskeletal pain; no joint swelling. Back pain. NEUROLOGICAL: No headache. No neck pain. No syncope. No seizures. No dizziness. PSYCHIATRIC: Not anxious. No depression. No suicidal thoughts. No homicidal thoughts. SKIN: No rash. No lesions. No wounds. ENDOCRINE: No unexplained weight loss. No weight gain. HEMATOLOGIC/LYMPHATIC: No anemia. No purpura. No petechiae. No prolonged or excessive bleeding. No palpable lymph nodes. PHYSICAL EXAMINATION: VITAL SIGNS: Temperature 97.2, pulse 87, respiratory rate 14, blood pressure 153/72 and pulse ox 99% on room air. HEENT: Head normocephalic, atraumatic. Eyes: Extraocular muscles are intact. Pupils are equal, round and reactive to light and accommodation. Ears: No lesions. Nose appeared normal. Throat: No exudate or erythema. NECK: Supple. No JVD, no carotid bruit. No lymphadenopathy or thyromegaly. LUNGS: Clear to auscultation. Percussion note normal. Chest symmetrical. HEART: S1, S2, no S3. No murmurs. No cyanosis or clubbing. No ascites. Pulses: Dorsalis pedis and posterior tibial pulses +1 to +2 bilaterally. ABDOMEN: Soft. Tenderness in the right lower quadrant which is questionable. Bowel sounds active. No CVA tenderness. No mass felt. EXTREMITIES: No edema. Full range of motion of all extremities, equal. Thoracic upper lumbar spine. Paraspinal area pain on the right side. No rash. NEUROLOGIC: No focal deficit. Cranial nerves II through XII are grossly intact. No headache, no double vision or headache. SKIN: Not dry. Intact. Turgor - normal. LYMPHATIC: No palpable lymph nodes/no lymphedema. MUSCULOSKELETAL: Normal joints with no swelling. Muscle tone is normal. ASSESSMENT: 1. 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 The patient is status pos modified Whipple procedure. no evidence of any obstruction PLAN: 1. Continue the same treatment 2. Continue Pantoprazole 3. Continue Flagyl CONDITION: Improving The patient has diverticulosis of colon and history of diverticulitis. TIME SPENT: More than 30 minutes. Plan and coordination of the patient's care discussed in the presence of nurse. ANA M
--- NOTE | 2020-06-06 14:06 | PN ---
DATE OF SERVICE: 06/02/2020 SUBJECTIVE: The patient was seen and examined with the Nurse Practitioner. Condition has improved. Abdominal pain has resolved. Her appetite is normal. Bowel movements are normal. She is going to be discharged home. CONDITION: Stable. TIME SPENT: More than 30 minutes. Plan and coordination of the patient's care discussed in the presence of nurse. ANA M
--- NOTE | 2020-06-06 14:07 | PN ---
05/30/2020: Level 5 05/31/2020: Intermediate 06/01/2020: Intermediate 06/02/2020: D as in discharge MTDD
--- NOTE | 2020-06-07 10:33 | DS ---
DATE OF SERVICE: 06/02/2020 FINAL DIAGNOSIS: 1. Right abdominal pain 2. History of bilateral nephrolithiasis 3. Diverticulosis 4. Chronic anemia VITAL SIGNS: Temperature 97, heart rate 63, respiratory rate 18, blood pressure 145/68 and pulse ox 95%. DISCHARGE INSTRUCTIONS: Discharge home. Resume home medications. Followup with Dr. Ramirez/SHARRON Smith/Caty Lopez APRN in 5-7 days. MEDICATIONS AT DISCHARGE: Aspirin 81mg PO daily Fenofibrate 134mg PO every other day Cozaar 100mg PO daily Protonix 40mg PO BID Flagyl 500mg PO TID for 7 days NEW PRESCRIPTIONS: Increase Protonix to 40mg PO twice a day Flagyl 500mg three times a day for 7 days DIET INSTRUCTIONS: [place], low fiber ACTIVITY: Gradually resume activity SMOKING: N/A LABS: Sodium 137, potassium 3.7, BUN 11.2, creatinine 0.75, WBC 4, hgb 10.7, hct 33, plt count 200. She has been eating 25-75% of her meals. HOSPITAL COURSE: This is 74 year old white female who was admitted through the emergency room. She came in with right upper quadrant pain which she explained was radiating from her right flank to her epigastric area. CT was initially done without contrast, showed bilateral nephrolithiasis no uretal stones, showed diverticulosis no diverticulitis. WBC was normal. Amylase and lipase were done which was normal. She has a history of acute pancreatitis. Repeat CT with and without contrast was done the followup morning which showed the same results. She was started on Protonix 40mg IV Q 12 hours along with Flagyl 500mg IV Q 8 hours and given 1 cc of Decadron IM. Over the course of a couple days her right sided pain improved however it has not gone away. Although there were no acute findings she had no dysuria and urine was normal. She had no vomiting or diarrhea. Her appetite remained normal. She will go home in stable condition with improved pain and we will followup with her in the office on Friday. She will go home on Protonix 40mg PO BID for the next month. I instructed her not to take any NSAIDS. She will also go home on Flagyl 500mg TID for the next 7 days and to follow a residual diet. She is discharged in stable condition. TIME SPENT: More than 60 minutes. MTDD
== END 2020-06-02 10:05 | disposition home or self-care (01) | DRG 392 ==
LOC: ED 10:18 → MEDSURG A 13:03
PROVIDERS: ADMIT Internal Medicine; ATTEND Internal Medicine
DX: E87.6 Hypokalemia; K58.9 Irritable bowel syndrome, unspecified; E78.5 Hyperlipidemia, unspecified; R10.9 Unspecified abdominal pain; R11.2 Nausea with vomiting, unspecified; E03.9 Hypothyroidism, unspecified; D64.9 Anemia, unspecified; M47.9 Spondylosis, unspecified; K57.90 Diverticulosis of intestine, part unspecified, without perforation or abscess without bleeding; I10 Essential (primary) hypertension; N20.0 Calculus of kidney; K76.0 Fatty (change of) liver, not elsewhere classified; E11.9 Type 2 diabetes mellitus without complications

== ENCOUNTER 2023-09-19 17:56 | Observation (INO) ==
--- NOTE | 2023-09-19 18:09 | ED.PDOC ---
General ED Provider: Dr. ALISE WHITE MD Chief Complaint: Chest Pain Stated Complaint: Patient with history of hypertension and type 2 diabetes complains acute onset of left-sided chest pain since earlier this morning sharp in character. Patient states she has been informed deep inspiration. Associated with coughing. Unsure of fever, chills, night sweats. Patient states on occasion the pain does radiate down her left arm. Patient notes pain scale of 4/10. Time Seen by Provider: 09/19/23 18:05 Mode of Arrival: Wheelchair Information Source: Patient Exam Limitations: No limitations Primary Care Provider: EMBER REHMAN MD Nursing and Triage Documentation Reviewed and Agree: Yes What is Opioid Naive?: *Opioid Naive implies the patient is not already taking opioids or not chronically receiving opioids on a daily basis. *PRN dosing is not "usually" associated with tolerance. *Patients are at higher risk of over-sedation and aspiration. What is Opioid Tolerant?: *Opioid Tolerance implies less than the expected response to an opioid. *Acquired tolerance is defined by the patient taking 60mg of oral morphine daily (or equianalgesic dose of another opioid) for 1 week or more. *Often associated with chronic pain. *May take more than usual dose to achieve desired pain control. Review of Systems Review Of Systems Constitutional: Reports No symptoms Eyes: Reports No symptoms Ears, Nose, Mouth, Throat: Reports No symptoms Respiratory: Reports Cough and Shortness of Breath Cardiac: Reports Chest pain GI: Reports No symptoms : Reports No symptoms Musculoskeletal: Reports No symptoms Skin: Reports No symptoms Neurological: Reports No symptoms Hematologic/Lymphatic: Reports No symptoms All Other Systems: Reviewed and Negative [facility] Medical History Allergic rhinitis J30.9 - Allergic rhinitis, unspecified (ICD-10) History of pancreatitis Z87.19 - Personal history of other diseases of the digestive system (ICD-10) Acute viral syndrome B34.9 - Viral infection, unspecified (ICD-10) Diverticulosis K57.90 - Diverticulosis of intestine, part unspecified, without perforation or abscess without bleeding (ICD-10) Cervical vertebral fusion M43.22 - Fusion of spine, cervical region (ICD-10) Pancreatitis K85.90 - Acute pancreatitis, unspecified (ICD-10) Hypertension for years I10 - Essential (primary) hypertension (ICD-10) Hyperlipidemia for years E78.5 - Hyperlipidemia, unspecified (ICD-10) Family History Mother Lymphoma, Onset Age: 78 FATHER Lung cancer Social History Smoking and tobacco status: Former smoker Tobacco: How many years used: 35 How long ago did patient quit smokin years ago Second hand smoke exposure: Yes Alcohol intake: never Substance use type: does not use Special angelique needs: No Agree to transfusion: Yes Adopted: No Caregiver/support person: No Foster care: No Household members: none Housing: house Marital status: W / Lives independently: Yes Number of children: 3 service: No halfway: No Current occupational status: retired History of recent travel: No Do you think of yourself as: straight/heterosexual Current gender identity: female Seatbelt use: always Drives intoxicated or rides with intoxicated chair car driver: No Water heater temperature set < 120 degrees: Yes Working smoke detector in home: Yes Fire extinguisher in home: Yes Carbon monoxide detector in home: Yes Surgical History History of colon resection Z90.49 - Acquired absence of other specified parts of digestive tract (ICD- 10) History of cholecystectomy Z90.49 - Acquired absence of other specified parts of digestive tract (ICD- 10) 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) History of bowel resection 2017 Z90.49 - Acquired absence of other specified parts of digestive tract (ICD- 10) History of appendectomy Z90.49 - Other specified postprocedural states (ICD-10) History of tonsillectomy Z90.89 - Other specified postprocedural states (ICD-10) History of bunionectomy of both great toes Z98.890 - Other specified postprocedural states (ICD-10) Hx of cholecystectomy Z90.49 - Other specified postprocedural states (ICD-10) 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) Status post hysterectomy 1972 Z90.710 - Acquired absence of both cervix and uterus (ICD-10) Female Reproductive History Menstrual Hx Hysterectomy: Yes Hx Tubal Ligation: No Physical Exam Physical Exam Appearance: Reports Ill-appearing Ill-appearing: Mild Pain Distress: Mild Eyes: Reports FAVIOLA, EOMI and Conjunctiva clear ENT: Reports Ears normal, Nose normal and Oropharynx normal Neck: Supple Respiratory: Reports Airway patent, Breath sounds clear and Breath sounds equal Cardiovascular: Reports RRR, Pulses normal, No rub and No murmur GI/: Reports Soft, Nontender, No masses, Bowel sounds normal and No Organomegaly Musculoskeletal: Reports Normal strength, ROM intact, No edema and No calf tenderness Skin: Reports Warm, Dry and Normal color Neurological: Reports Sensation intact, Motor intact, Reflexes intact, Cranial nerves intact and Alert Psychiatric: Reports Affect appropriate and Mood appropriate Re-Evaluation Re-Evaluation Time of Re-Evaluation: 21:02 Status: Improved Vital Signs Stable: Yes Pain Level: Patient patient has improved from a 4/10 to a 1/10. Physician Notification Case Discussed Physician Notified: Discussed with Dr. Pam Rehman Time of Notification: 20:58 Comments: and after discussion of the laboratory data along with the CT of the chest PE protocol with recommendations for observation. And referral to the hospitalist. Physician Notified: Discussed with hospitalist Yoan Mancia at 2102 Time of Notification: 21:02 Comments: After review of all laboratory data, EKGs and CT of the chest PE protocol recommendation made for observation. Admit To: Observation Course Course 09/19/23 18:27 09/19/23 18:27 Orders, Labs, Meds: Lab Review 09/19/23 09/19/23 09/19/23 18:22 18:27 18:48 WBC 3.94 L RBC 3.62 L Hgb 8.7 L Hct 29.1 L MCV 80.4 L MCH 24.0 L MCHC 29.9 L RDW Coeff of Linda 15.9 H Plt Count 205 Immature Gran % (Auto) 0.3 Neut % (Auto) 52.5 Lymph % (Auto) 38.8 [place] % (Auto) 7.6 Eos % (Auto) 0.5 Baso % (Auto) 0.3 Neut # (Auto) 2.1 Lymph # (Auto) 1.5 [place] # (Auto) 0.3 L Eos # (Auto) 0.0 Baso # (Auto) 0.0 Immature Gran # (Auto) 0.0 PT 10.1 INR 0.97 Sodium 137.2 Potassium 3.58 Chloride 107.0 Carbon Dioxide 19.7 L Anion Gap 14.08 BUN 13.2 Creatinine 0.83 Estimated GFR (MDRD) 66.00 BUN/Creatinine Ratio 15.90 Glucose 179.7 H Calcium 8.97 Total Bilirubin 0.60 AST 40.3 H ALT 20.3 Alkaline Phosphatase 111.3 Troponin I < 0.012 NT-Pro-B Natriuret Pep 241 Total Protein 7.41 Albumin 4.09 Globulin 3.32 Albumin/Globulin Ratio 1.23 D-Dimer 790.23 H Stl Occult Blood (IFOB) Negative Stool Occult Blood #2 No specimen received Stool Occult Blood #3 No specimen received Influ A Molecular Assay Negative by naat Influ B Molecular Assay Negative by naat RSV Antigen Negative by naat SARS CoV-2 RNA Rapid MJ Positive H 09/19/23 20:02 WBC RBC Hgb Hct MCV MCH MCHC RDW Coeff of Linda Plt Count Immature Gran % (Auto) Neut % (Auto) Lymph % (Auto) [place] % (Auto) Eos % (Auto) Baso % (Auto) Neut # (Auto) Lymph # (Auto) [place] # (Auto) Eos # (Auto) Baso # (Auto) Immature Gran # (Auto) PT INR Sodium Potassium Chloride Carbon Dioxide Anion Gap BUN Creatinine Estimated GFR (MDRD) BUN/Creatinine Ratio Glucose Calcium Total Bilirubin AST ALT Alkaline Phosphatase Troponin I < 0.012 NT-Pro-B Natriuret Pep Total Protein Albumin Globulin Albumin/Globulin Ratio D-Dimer Stl Occult Blood (IFOB) Stool Occult Blood #2 Stool Occult Blood #3 Influ A Molecular Assay Influ B Molecular Assay RSV Antigen SARS CoV-2 RNA Rapid MJ Orders Category Date Time Status EKG-(ED ONLY) Stat CARDIO 09/19/23 18:13 Completed EKG-(ED ONLY) Stat CARDIO 09/19/23 19:54 Completed NPO REMINDER: IMAGING ONCE CARE 09/19/23 19:20 Active Saline Lock [ED IV/MEDIPORT/POWERPORT] .ONCE EMERGENCY 09/19/23 18:13 Active CBC W/ AUTO DIFF Stat LAB 09/19/23 18:27 Completed CMP [COMPREHENSIVE METABOLIC PANEL] Stat LAB 09/19/23 18:27 Completed COVID [SARS COV-2 RNA RAPID MJ] Stat LAB 09/19/23 18:22 Completed D-DIMER Stat LAB 09/19/23 18:27 Completed FLU A & B MOLECULAR [FLU A/B MOLECULAR] Stat LAB 09/19/23 18:22 Completed OCCULT BLOOD, STOOL Stat LAB 09/19/23 18:48 Completed PROBNP ED [NT-PROBNP(ED)] Stat LAB 09/19/23 18:27 Completed PT WITH INR Stat LAB 09/19/23 18:27 Completed RSV Stat LAB 09/19/23 18:22 Completed TROPONIN I Stat LAB 09/19/23 18:27 Completed TROPONIN I Stat LAB 09/19/23 20:02 Completed 0.9 % Sodium Chloride [Saline Flush] Meds 09/19/23 18:13 Active 1 syr IVF PRN PRN Aspirin [Aspirin Chewable] Meds 09/19/23 18:11 Discontinued 324 mg PO ONCE STA Nitroglycerin [Nitrostat] Meds 09/19/23 18:11 Active 0.4 mg SL Q5MIN X 3 DOSES PRN CHEST, 1V AP ONLY Stat RADS 09/19/23 18:13 Completed CTA CHEST PE PROTOCOL Stat RADS 09/19/23 19:20 Completed Medications Generic Name Dose Route Start Last Admin Trade Name Freq PRN Reason Stop Dose Admin Nitroglycerin 0.4 mg 09/19/23 18:11 09/19/23 19:29 Nitroglycerin 0.4 Mg Tab.Subl SL 0.4 mg Q5MIN X 3 DOSES PRN Administration Chest Pain Sodium Chloride 1 syr 09/19/23 18:13 0.9% Sodium Chloride 10 Ml Disp.Syrin IVF PRN PRN To flush IV Discontinued Medications Generic Name Dose Route Start Last Admin Trade Name Freq PRN Reason Stop Dose Admin Aspirin 324 mg 09/19/23 18:11 09/19/23 19:02 Aspirin 81 Mg Tab.Chew PO 09/19/23 18:12 324 mg ONCE STA Administration Vital Signs: Temp Pulse Resp BP Pulse Ox 09/19/23 18:01 98.2 F 73 18 176/77 H 98 LINDSAY Risk Score Age >/= 65: Yes >/= 3 CAD Risk Factors: Yes Known CAD (Stenosis >/= 50%): No ASA Use in Past 7 Days: Yes Severe Angina (>/= 2 episodes in 24 hours): Yes EKG ST Changes >/= 0.5mm: No Postive Cardiac Marker: No LINDSAY Total Score: 4 LINDSAY Risk Score: Risk Score Odds of by 30D 0 0.1 (0.1-0.2) 1 0.3 (0.2-0.3) 2 0.4 (0.3-0.5) 3 0.7 (0.6-0.9) 4 1.2 (1.0-1.5) 5 2.2 (1.9-2.6) 6 3.0 (2.5-3.6) 7 4.8 (3.8-6.1) Physician Progress Note: History obtained from the patient with a history of hypertension type 2 diabetes complains acute onset of left-sided chest pain since this morning states that pain is exacerbated upon inspiration and on occasion radiates down left arm. Patient complains of exertional dyspnea on occasion has associated nonproductive cough, denies fever, chills, malaise. Patient also denies arthralgia. Patient has a saline lock established, baby aspirin 324 mg orally and nitroglycerin sublingual 0.4 mg Patient placed on physical medicine specialist 1802-EKG interpretation by myself is consistent with normal sinus rhythm with occasional PVCs, rate of 69 there is left ventricular pressure noted. There is nonspecific ST wave changes anteroseptally 2003-repeat EKG interpretation by myself consistent with normal sinus rhythm rate of [address] wave changes noted anteroseptally normal. No change from the previous EKG Portable chest x-ray interpretation by the radiologist is consistent cardiomegaly there is no acute car pulm process. Laboratory data patient tested positive for COVID, D-dimer of 790, occult stool was negative for blood. CBC hemoglobin is 8.7, hematocrit 29 white blood cell count is 3900 platelet count is 205,000. The CMP is normal. Patient troponin is 0.012 the repeat troponin 2 hours later at 2001, troponin less than 0.012 CT of the chest PE protocol interpretation by the radiologist shows no pulmonary arterial thromboembolism there is soft tissue abundance in the left hilum suggesting enlarged lymph nodes measuring up to 17 mm short axis less likely than the differential would be a left hilar neoplasm soft tissue mildly narrowing of some of the regional pulmonary arteries and is a new finding since 2019 examination there is a noncalcified indeterminate pleural-based 7.9 mm nodule in the posterior left lung base which has significantly enlarged since the prior study 2019 there are chronic appearing interstitial changes are seen throughout there is no definite pneumonia Patient administered having a nonproductive cough for the past 3 to 4 days discussed with patient treatment with Paxlovid which the patient refuses due to multiple allergies to medications Differential diagnosis: 1) acute chest pain 2) chronic anemia Discussed with hospitalist Yoan Mancia for observation Discharge Plan Discharge Patient Disposition: PLACED OBSERVATION Discharge Problem: Anemia, chronic disease, Acute chest pain Prescriptions: No Action losartan 100 mg tablet See Rx Instructions .ROUTE .COMPLEX Qty: 90 1RF Dose Instruction: TAKE ONE (1) TABLET (100 MG) BY MOUTH DAILY Rx Instructions: TAKE ONE (1) TABLET (100 MG) BY MOUTH DAILY Did you review [place] [facility] for ALL controlled substances?: Not Applicable ED Provider: ALISE WHITE Condition: Stable
[2023-09-19 18:29] LABS: BASOPHILS % (AUTO) 0.3 % (0.0-3.0); EOSINOPHILS % (AUTO) 0.5 % (0.0-7.0); HEMATOCRIT 29.1 % (37.0-47.0); HEMOGLOBIN 8.7 g/dl (12.0-16.0); IMMATURE GRANULOCYTE % (AUTO) 0.3 % (0.0-5.0); LYMPHOCYTES # (AUTO) 1.5 K/uL (0.60-3.4); LYMPHOCYTES % (AUTO) 38.8 (10.0-50.0); MEAN CORPUSCULAR HGB CONC 29.9 (31.8-35.4); MEAN CORPUSCULAR VOLUME 80.4 fl (81.0-99.0); MONOCYTES # (AUTO) 0.3 K/uL (0.4-2.0); MONOCYTES % (AUTO) 7.6 (0-10); NEUTROPHILS # (AUTO) 2.1 K/ul (2.0-6.9); NEUTROPHILS % (AUTO) 52.5 % (42.2-75.2); PLATELET COUNT 205 10^3/uL (140-440); RDW COEFFICIENT OF VARIATION 15.9 % (11.6-14.8); RED BLOOD COUNT 3.62 10^6/ul (4.20-5.40); WHITE BLOOD COUNT 3.94 K/ul (4.6-10.2)
--- NOTE | 2023-09-19 18:40 | DI ---
EXAMINATION: SINGLE VIEW CHEST. HISTORY: Cough, dyspnea. COMPARISON: 07/31/2019. FINDINGS: Lines/Devices: Monitoring leads. Cervical fusion hardware. Cardiomediastinal silhouette: Mild cardiac enlargement. Trace aortic atherosclerosis. Granulomatou s calcifications. Lungs: No edema. No consolidation. Minimal atelectatic changes at the left base. Pleural Effusion: None. Osseous structures: No significant abnormality. IMPRESSION: No acute cardiopulmonary abnormality. Mild cardiomegaly.
[2023-09-19 18:42] LABS: SARS COV-2 RNA RAPID NAAT POSITIVE (NEGATIVE)
[2023-09-19 18:43] LABS: ALANINE AMINOTRANSFERASE 20.3 U/L (0-35); ALBUMIN 4.09 g/dL (3.5-5.0); ALKALINE PHOSPHATASE 111.3 U/L (53-141); ASPARTATE AMINO TRANSFERASE 40.3 U/L (14-36); BLOOD UREA NITROGEN 13.2 mg/dL (7-17); CALCIUM 8.97 mg/dL (8.4-10.2); CARBON DIOXIDE 19.7 mmol/L (22-30.0); CREATININE 0.83 mg/dL (0.60-1.30); GLUCOSE 179.7 mg/dL (74-106); POTASSIUM 3.58 mmol/L (3.5-5.1); SODIUM 137.2 mmol/L (134.5-145); TOTAL PROTEIN 7.41 g/dL (6.3-8.2)
[2023-09-19 18:49] LABS: MOLECULAR FLU A NEGATIVE BY NAAT (NEGATIVE); MOLECULAR FLU B NEGATIVE BY NAAT (NEGATIVE); RSV MOLECULAR NEGATIVE BY NAAT (NEGATIVE)
[2023-09-19 18:58] LABS: PROTHROMBIN TIME 10.1 SEC (9.3-11.0)
[2023-09-19 19:00] LABS: TROPONIN I < 0.012 ng/ml (0.0000-0.120)
[2023-09-19] MEDS: ASPIRIN CHEWABLE PO STA (19:02)
[2023-09-19] MEDS: NITROSTAT SL PRN (19:02)
[2023-09-19 19:06] LABS: OCCULT BLOOD SAMPLE 1 NEGATIVE (NEGATIVE); OCCULT BLOOD SAMPLE 2 NO SPECIMEN RECEIVED (NEGATIVE); OCCULT BLOOD SAMPLE 3 NO SPECIMEN RECEIVED (NEGATIVE)
--- NOTE | 2023-09-19 20:47 | CT ---
EXAM: CT ANGIOGRAPHY CHEST (PE PROTOCOL) HISTORY: Chest pain, dyspnea, elevated D-dimer TECHNIQUE: CTA chest with intravenous contrast. PE protocol. Multiplanar images were provided with MIP images and 3-D reconstructions. COMPARISON: 04/02/2020 FINDINGS: No pulmonary arterial thromboembolism. Mild to moderate atherosclerotic disease. Mild c ardiomegaly. Trace pericardial effusion. Soft tissue abundance in the left hilum suggesting enlarge d lymph nodes measuring up to 17 mm short axis, less likely within the differential would be a left h ilar neoplasm. This soft tissue mildly narrows some of the regional pulmonary arteries and is a new finding since the 2019 exam. There is a noncalcified pleural based 7.9 mm nodule in the posterior le ft lung base which has slightly enlarged since prior study in 2019. Chronic-appearing interstitial c hanges are seen throughout. No definite pneumonia. There is no pleural fluid, interstitial edema or pneumothorax. The bones appear appropriate for age. IMPRESSION: 1. No pulmonary arterial thromboembolism. 2. Soft tissue abundance in the left hilum suggesting enlarged lymph nodes measuring up to 17 [address]ella rt axis, less likely within the differential would be a left hilar neoplasm. This soft tissue mildly narrows some of the regional pulmonary arteries and is a new finding since the 2019 exam. There is a noncalcified indeterminate pleural based 7.9 mm nodule in the posterior left lung base which has sl ightly enlarged since prior study in 2019. Chronic-appearing interstitial changes are seen throughou t. No definite pneumonia. Follow-up CT is recommended. 3. Atherosclerotic disease. Cardiomegaly. - - - - - All CT scans are performed using dose optimization techniques as appropriate to the performed exam an d include at least one of the following: Automated exposure control, adjustment of the mA and/or kV according t o size, and the use of iterative reconstruction technique.
[2023-09-19 21:27] LABS: IRON 29.6 ug/dL (37-170)
[2023-09-19] MEDS: TORADOL IVP ONE (23:59)
[2023-09-20] MEDS: FERROUS SULFATE PO SCH
[2023-09-20] MEDS: HYDRALAZINE HCL IVP ONE
[2023-09-20] MEDS: SOLU-MEDROL 40 MG IVP SCH (00:19)
[2023-09-20 01:25] VITALS: BMI 25.6
[2023-09-20 06:17] LABS: BASOPHILS % (AUTO) 0.3 % (0.0-3.0); HEMATOCRIT 27.7 % (37.0-47.0); HEMOGLOBIN 8.5 g/dl (12.0-16.0); IMMATURE GRANULOCYTE % (AUTO) 0.7 % (0.0-5.0); LYMPHOCYTES # (AUTO) 0.6 K/uL (0.60-3.4); LYMPHOCYTES % (AUTO) 22.1 (10.0-50.0); MEAN CORPUSCULAR HEMOGLOBIN 24.6 pg (27.0-31.0); MEAN CORPUSCULAR HGB CONC 30.7 (31.8-35.4); MEAN CORPUSCULAR VOLUME 80.1 fl (81.0-99.0); MONOCYTES # (AUTO) 0.1 K/uL (0.4-2.0); MONOCYTES % (AUTO) 2.1 (0-10); NEUTROPHILS # (AUTO) 2.2 K/ul (2.0-6.9); NEUTROPHILS % (AUTO) 74.8 % (42.2-75.2); PLATELET COUNT 190 10^3/uL (140-440); RDW COEFFICIENT OF VARIATION 16.1 % (11.6-14.8); RED BLOOD COUNT 3.46 10^6/ul (4.20-5.40); WHITE BLOOD COUNT 2.89 K/ul (4.6-10.2)
[2023-09-20 06:33] LABS: ALANINE AMINOTRANSFERASE 18.8 U/L (0-35); ALBUMIN 4.01 g/dL (3.5-5.0); ALKALINE PHOSPHATASE 106.3 U/L (53-141); ASPARTATE AMINO TRANSFERASE 35.9 U/L (14-36); BILIRUBIN,TOTAL 0.62 mg/dL (0.2-1.3); BLOOD UREA NITROGEN 15.9 mg/dL (7-17); CALCIUM 8.96 mg/dL (8.4-10.2); CARBON DIOXIDE 17.3 mmol/L (22-30.0); CHLORIDE 107.6 mmol/L (98-107); CREATININE 0.8 mg/dL (0.60-1.30); GLUCOSE 206.4 mg/dL (74-106); SODIUM 137.1 mmol/L (134.5-145); TOTAL PROTEIN 7.31 g/dL (6.3-8.2)
[2023-09-20 08:36] VITALS: RESP 16
[2023-09-20 10:36] VITALS: BP 162/72; PULSE 68; TEMP 97.6
--- NOTE | 2023-09-20 11:07 | PCM.SS ---
Provider Provider: Eric Young PA-C, [facility] Admission Date Admission Date: 09/19/23 Discharge Date Discharge Date: 09/20/23 Primary Care Physician Primary Care Physician: EMBER RAMIREZ MD Chief Complaint Reason For Visit: ACUTE CHEST PAIN, CHRONIC ANEMIA History of Present Illness History of Present Illness: Admitted 09/19/23 21:10, this 77 year old /WHITE/F with pmhx of anemia, b12 deficiency, CVA with residual speech deficit, hypertension, DMT2, GERD, hypothyroidism, hyperlipidemia, multiple medical allergies who presented to ER with left sided chest discomfort starting yesterday about an hour prior to arrival. She states it felt like indigestion, but then moved to her left breast. She states it was worse with inspiration. She denies significant cardiac history. In ER trop and EKG unremarkable. Covid +. Pt admits to a mild cough in last few days. No sob. No hx of covid vaccine. Patient was admitted to [facility] for cp rule out. Upon evaluation this morning patient denies any chest discomfort since being admitted. Trops negative. Repeat EKG unchanged. She is feeling at her baseline. Discussed antiviral options for covid and she declines paxlovid. Of note, CTA chest in ER did show possible enlarged lymph nodes of left hilum and 7.9 mm nodule in posterior left lung base which has slighly enlarged since 2020. These findings were discussed with patient. [facility] Medical History Glaucoma (increased eye pressure) H40.9 - Unspecified glaucoma (ICD-10) Glaucoma (increased eye pressure) H40.9 - Unspecified glaucoma (ICD-10) Allergic rhinitis J30.9 - Allergic rhinitis, unspecified (ICD-10) History of pancreatitis Z87.19 - Personal history of other diseases of the digestive system (ICD-10) Acute viral syndrome B34.9 - Viral infection, unspecified (ICD-10) Diverticulosis K57.90 - Diverticulosis of intestine, part unspecified, without perforation or abscess without bleeding (ICD-10) Cervical vertebral fusion M43.22 - Fusion of spine, cervical region (ICD-10) Pancreatitis K85.90 - Acute pancreatitis, unspecified (ICD-10) Hypertension for years I10 - Essential (primary) hypertension (ICD-10) Hyperlipidemia for years E78.5 - Hyperlipidemia, unspecified (ICD-10) Surgical History History of colon resection Z90.49 - Acquired absence of other specified parts of digestive tract (ICD- 10) History of cholecystectomy Z90.49 - Acquired absence of other specified parts of digestive tract (ICD- 10) 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) History of bowel resection 2018 Z90.49 - Acquired absence of other specified parts of digestive tract (ICD- 10) History of appendectomy Z90.49 - Other specified postprocedural states (ICD-10) History of tonsillectomy Z90.89 - Other specified postprocedural states (ICD-10) History of bunionectomy of both great toes Z98.890 - Other specified postprocedural states (ICD-10) Hx of cholecystectomy Z90.49 - Other specified postprocedural states (ICD-10) 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) Status post hysterectomy 1971 Z90.710 - Acquired absence of both cervix and uterus (ICD-10) Family History Mother Lymphoma, Onset Age: 78 FATHER Lung cancer Social History Smoking and tobacco status: Former smoker Tobacco: How many years used: 35 How long ago did patient quit smokin years ago Second hand smoke exposure: Yes Alcohol intake: never Substance use type: does not use Special angelique needs: No Agree to transfusion: Yes Adopted: No Caregiver/support person: No Foster care: No Household members: none Housing: house Marital status: W / Lives independently: Yes Number of children: 3 service: No senior living: No Current occupational status: retired History of recent travel: No Do you think of yourself as: straight/heterosexual Current gender identity: female Seatbelt use: always Drives intoxicated or rides with intoxicated electric screw driver operator: No Water heater temperature set < 120 degrees: Yes Working smoke detector in home: Yes Fire extinguisher in home: Yes Carbon monoxide detector in home: Yes Medications Mecications: Medications at Discharge (Home Meds & RX) losartan 100 mg tablet See Rx Instructions .Route .COMPLEX #90 tabs 08/07/23 Allergies Allergies Allergy/AdvReac Type Severity Reaction Status Date / Time atorvastatin calcium AdvReac Unknown Verified 08/14/23 13:12 [From Lipitor] cephalexin [From Keflex] AdvReac Unknown Verified 08/14/23 13:12 cimetidine [From Tagamet] AdvReac Unknown Verified 08/14/23 13:12 cimetidine HCl [From Tagamet] AdvReac Unknown Verified 08/14/23 13:12 ciprofloxacin AdvReac Unknown Verified 08/14/23 13:12 doxycycline [From Vibramycin] AdvReac Unknown Verified 08/14/23 13:12 fenofibrate [From Triglide] AdvReac Unknown Verified 08/14/23 13:12 fenofibrate nanocrystallized AdvReac Unknown Verified 08/14/23 13:12 [From Tricor] fenofibrate,micronized AdvReac Unknown Verified 08/14/23 13:12 [From Tricor] gatifloxacin [From Tequin] AdvReac Unknown Verified 08/14/23 13:12 ibuprofen AdvReac Unknown Verified 08/14/23 13:12 metronidazole [From Flagyl] AdvReac Unknown Verified 08/14/23 13:12 minocycline HCl AdvReac Unknown Verified 08/14/23 13:12 [From Minocin] nitrofurantoin macrocrystal AdvReac Unknown Verified 08/14/23 13:12 [From Macrodantin] olmesartan [From Benicar] AdvReac Unknown Verified 08/14/23 13:12 olmesartan medoxomil AdvReac Unknown Verified 08/14/23 13:12 [From Benicar] Penicillins AdvReac Unknown Verified 08/14/23 13:12 rosuvastatin calcium AdvReac Unknown Verified 08/14/23 13:12 [From Crestor] simvastatin AdvReac Unknown Verified 08/14/23 13:12 Skin Cleanser Combination AdvReac Unknown Verified 08/14/23 13:12 No.4 [From Minocin] Sulfa (Sulfonamide AdvReac Unknown Verified 08/14/23 13:12 Antibiotics) atorvastatin calcium AdvReac Unknown Uncoded 08/14/23 13:12 cimetidine AdvReac Unknown Uncoded 08/14/23 13:12 cimetidine HCl AdvReac Unknown Uncoded 08/14/23 13:12 ciprofloxacin AdvReac Unknown Uncoded 08/14/23 13:12 Fenofibrate Nanocrystallized AdvReac Unknown Uncoded 08/14/23 13:12 fenofibrate,micronized AdvReac Unknown Uncoded 08/14/23 13:12 Gatifloxacin AdvReac Unknown Uncoded 08/14/23 13:12 ibuprofen AdvReac Unknown Uncoded 08/14/23 13:12 Minocycline HCl AdvReac Unknown Uncoded 08/14/23 13:12 Nitrofurantoin Macrocrystal AdvReac Unknown Uncoded 08/14/23 13:12 olmesartan medoxomil AdvReac Unknown Uncoded 08/14/23 13:12 Penicillins AdvReac Unknown Uncoded 08/14/23 13:12 rosuvastatin calcium AdvReac Unknown Uncoded 08/14/23 13:12 simvastatin AdvReac Unknown Uncoded 08/14/23 13:12 Skin Cleanser Combination AdvReac Unknown Uncoded 08/14/23 13:12 No.4 Sulfa (Sulfonamide AdvReac Unknown Uncoded 08/14/23 13:12 Antibiotics) Vectrin AdvReac Unknown Uncoded 08/14/23 13:12 VIBRICILLEN AdvReac Unknown Uncoded 08/14/23 13:12 VICTRIN AdvReac Unknown Uncoded 08/14/23 13:12 Review of Systems Constitutional: Denies Fever, Fatigue or Weakness Throat: Denies Sore Throat or Difficulty Swallowing Cardiovascular: Reports Chest pain; Denies Chest Pressure, Edema or Palpitations Respiratory: Reports Cough; Denies Shortness of air Gastrointestinal: Denies Nausea, Vomiting, Diarrhea, Abdominal pain or Melena Genitourinary: Denies Dysuria or Frequency Dermatologic: Denies Rashes Neurological: Denies Headache or Weakness Physical Examination Appearance: Positive Well-appearing, Well-nourished, No Apparent Distress and Alert and Oriented x3 Head: Positive Normocephalic and Atraumatic Neck: Positive Supple and Trachea Midline Heart: Positive RRR Respiratory: Positive Airway patent, Breath Sounds Clear, Bilaterally and Breath Sounds Equal GI/: Positive Soft, Nontender, Bowel sounds normal and No Distention Extremities: Negative Edema Neurological: Positive Cranial nerves intact, Motor Intact, Reflexes Intact, Alert and Oriented Psychiatric: Positive Normal Judgement and Normal Insight Vital Signs (Last 4 Hours) Vital Signs Last 4 Hours: Vital Signs: Last 4 Hours 09/20/23 08:00 09/20/23 08:00 09/20/23 09:00 Temperature Temperature Source Pulse Rate Pulse Rate [Apical] 74 Respiratory Rate 16 Blood Pressure Blood Pressure Mean Blood Pressure Location O2 Sat by Pulse Oximetry Oxygen Delivery Method Room Air Room Air Room Air 09/20/23 10:00 09/20/23 10:00 Temperature 97.6 F Temperature Source Temporal Artery Scan Pulse Rate 68 Pulse Rate [Apical] Respiratory Rate 16 Blood Pressure 162/72 H Blood Pressure Mean 102 Blood Pressure Location Left Arm O2 Sat by Pulse Oximetry 96 Oxygen Delivery Method Room Air Room Air Labs This Visit Labs This Visit: Labs This Visit 09/19/23 09/19/23 09/19/23 18:22 18:27 18:48 WBC 3.94 L RBC 3.62 L Hgb 8.7 L Hct 29.1 L MCV 80.4 L MCH 24.0 L MCHC 29.9 L RDW Coeff of Linda 15.9 H Plt Count 205 Immature Gran % (Auto) 0.3 Neut % (Auto) 52.5 Lymph % (Auto) 38.8 [place] % (Auto) 7.6 Eos % (Auto) 0.5 Baso % (Auto) 0.3 Neut # (Auto) 2.1 Lymph # (Auto) 1.5 [place] # (Auto) 0.3 L Eos # (Auto) 0.0 Baso # (Auto) 0.0 Immature Gran # (Auto) 0.0 PT 10.1 INR 0.97 Sodium 137.2 Potassium 3.58 Chloride 107.0 Carbon Dioxide 19.7 L Anion Gap 14.08 BUN 13.2 Creatinine 0.83 Estimated GFR (MDRD) 66.00 BUN/Creatinine Ratio 15.90 Glucose 179.7 H Calcium 8.97 Iron 29.6 L TIBC 482 % Saturation 6 Ferritin 25.50 Total Bilirubin 0.60 AST 40.3 H ALT 20.3 Alkaline Phosphatase 111.3 Troponin I < 0.012 NT-Pro-B Natriuret Pep 241 Total Protein 7.41 Albumin 4.09 Globulin 3.32 Albumin/Globulin Ratio 1.23 D-Dimer 790.23 H Stl Occult Blood (IFOB) Negative Stool Occult Blood #2 No specimen received Stool Occult Blood #3 No specimen received Influ A Molecular Assay Negative by naat Influ B Molecular Assay Negative by naat RSV Antigen Negative by naat SARS CoV-2 RNA Rapid MJ Positive H 09/19/23 09/20/23 09/20/23 20:02 00:33 05:50 WBC 2.89 L RBC 3.46 L Hgb 8.5 L Hct 27.7 L MCV 80.1 L MCH 24.6 L MCHC 30.7 L RDW Coeff of Linda 16.1 H Plt Count 190 Immature Gran % (Auto) 0.7 Neut % (Auto) 74.8 Lymph % (Auto) 22.1 [place] % (Auto) 2.1 Eos % (Auto) 0.0 Baso % (Auto) 0.3 Neut # (Auto) 2.2 Lymph # (Auto) 0.6 [place] # (Auto) 0.1 L Eos # (Auto) 0.0 Baso # (Auto) 0.0 Immature Gran # (Auto) 0.0 PT INR Sodium 137.1 Potassium 4.00 Chloride 107.6 H Carbon Dioxide 17.3 L Anion Gap 16.20 BUN 15.9 Creatinine 0.80 Estimated GFR (MDRD) 69.00 BUN/Creatinine Ratio 19.87 Glucose 206.4 H Calcium 8.96 Iron TIBC % Saturation Ferritin Total Bilirubin 0.62 AST 35.9 ALT 18.8 Alkaline Phosphatase 106.3 Troponin I < 0.012 < 0.012 < 0.012 NT-Pro-B Natriuret Pep Total Protein 7.31 Albumin 4.01 Globulin 3.30 Albumin/Globulin Ratio 1.21 D-Dimer Stl Occult Blood (IFOB) Stool Occult Blood #2 Stool Occult Blood #3 Influ A Molecular Assay Influ B Molecular Assay RSV Antigen SARS CoV-2 RNA Rapid MJ Imaging Imaging: EXAMINATION: SINGLE VIEW CHEST. HISTORY: Cough, dyspnea. COMPARISON: 07/31/2019. FINDINGS: Lines/Devices: Monitoring leads. Cervical fusion hardware. Cardiomediastinal silhouette: Mild cardiac enlargement. Trace aortic atherosclerosis. Granulomatous calcifications. Lungs: No edema. No consolidation. Minimal atelectatic changes at the left base. Pleural Effusion: None. Osseous structures: No significant abnormality. IMPRESSION: No acute cardiopulmonary abnormality. Mild cardiomegaly. EXAM: CT ANGIOGRAPHY CHEST (PE PROTOCOL) HISTORY: Chest pain, dyspnea, elevated D-dimer TECHNIQUE: CTA chest with intravenous contrast. PE protocol. Multiplanar images were provided with MIP images and 3-D reconstructions. COMPARISON: 04/02/2020 FINDINGS: No pulmonary arterial thromboembolism. Mild to moderate atherosclerotic disease. Mild cardiomegaly. Trace pericardial effusion. Soft tissue abundance in the left hilum suggesting enlarged lymph nodes measuring up to 17 mm short axis, less likely within the differential would be a left hilar neoplasm. This soft tissue mildly narrows some of the regional pulmonary arteries and is a new finding since the 2019 exam. There is a noncalcified pleural based 7.9 mm nodule in the posterior left lung base which has slightly enlarged since prior study in 2020. Chronic-appearing interstitial changes are seen throughout. No definite pneumonia. There is no pleural fluid, interstitial edema or pneumothorax. The bones appear appropriate for age. IMPRESSION: 1. No pulmonary arterial thromboembolism. 2. Soft tissue abundance in the left hilum suggesting enlarged lymph nodes measuring up to 17 mm short axis, less likely within the differential would be a left hilar neoplasm. This soft tissue mildly narrows some of the regional pulmonary arteries and is a new finding since the 2019 exam. There is a noncalcified indeterminate pleural based 7.9 mm nodule in the posterior left lung base which has slightly enlarged since prior study in 2020. Chronic- appearing interstitial changes are seen throughout. No definite pneumonia. Follow-up CT is recommended. 3. Atherosclerotic disease. Cardiomegaly. Review Review Statement: I have independently reviewed and interpreted the labs/EKGs/imaging that were ordered by the ER provider. I have reviewed all outside records that are available currently in our EMR including imaging/notes/labs from previous visits. Plan Reccomendations/Plan: 1. Chest pain - Trend EKG and trops. Pain resolved so far. No significant cardiac history. Likely due to covid/cough. Received ASA in ER. 2. Covid - Covid isolation. Pt declines antiviral such as remdesivir or paxlovid. 3. Chronic anemia - Pt states she can't take iron due to diarrhea. Stable. 4. Hypertension -Cont home meds 5. DMT2 - Last A1c elevated. Pt states she tries to control it with diet only. 6. Hx of CVA - Doesn't take any. Statins listed as allergy. Upon evaluation this morning patient denies any chest discomfort since being admitted. Trops negative. Repeat EKG unchanged. She is feeling at her baseline. Consider outpatient echo/stress test if warranted. Discussed antiviral options for covid and she declines paxlovid. Of note, CTA chest in ER did show possible enlarged lymph nodes of left hilum and 7.9 mm nodule in posterior left lung base which has slighly enlarged since 2019. These findings were discussed with patient. Consider outpatient work up. Discharge diagnoses: 1. Chest pain, resolved 2. Covid 19 3. Chronic anemia 4. Hypertension 5. DMT2 6. Hx of CVA with chronic speech deficit 7. Hyperlipidemia 8. Left lung nodule and concern for left hilum lymphadenopathy Additional Planning: Case discussed with ED Physician, Dr. Laird. DVT Prophylaxis: Ambulation Advanced Care Plannin minutes spent discussing advance care planning. FULL CODE Admit to: Obs Discussed Plan of Care with Dr. Johnathan Ramirez. Review With Patient Reviewed with Patient and Family: Patient and family have been counseled on condition and care plan and have no immediate questions. I have personally discussed and reviewed the patient's visit/current labs/imaging/decision making with Dr. Johnathan Ramirez, my supervising attending. Total number of minutes spent with patient [ 85 ] min. More than 50% of the time spent with this patient was devoted to counseling and coordination of care. Time of Admission:09/19/23 21:10 Time of Discharge: 09/20/23 10:30 Discharge Plan Discharge Discharge Orders: Discharge Patient (ONCE); Ordered 09/20/23 Ordered By: ERIC YOUNG Activity Restrictions/Additional Instructions: DISCHARGE TO HOME TODAY COVID ISOLATION DX: CHEST PAIN, COVID+ F/U WITH PCP THIS COMING WEEK: you will need to call the office Friday to establish follow up appointment. . RETURN TO ED WITH NEW OR WORSENING SYMPTOMS. REPORT TO YOUR PROVIDER IF YOU BEGIN TO EXPERIENCE SHORTNESS OF BREATH RESUME ALL HOME MEDICATIONS TAKEN PRIOR TO HOSPITALIZATION. YOUR CT SCAN OF YOUR CHEST SHOWED A LEFT SIDED LUNG NODULE AND POSSIBLE ENLARGED LYMPH NODES, PLEASE FOLLOW UP WITH PCP. Patient Disposition: HOME SELF-CARE Prescriptions: Continued losartan 100 mg tablet See Rx Instructions .ROUTE .COMPLEX Qty: 90 1RF Dose Instruction: TAKE ONE (1) TABLET (100 MG) BY MOUTH DAILY Rx Instructions: TAKE ONE (1) TABLET (100 MG) BY MOUTH DAILY Did you review [place] [employer] for ALL controlled substances?: Not Applicable Discussed opioids are addictive and Narcan is available by prescription or from pharmacy.: No Condition: Stable
[2023-09-20] MEDS ORDERED: SOLU-MEDROL 40 MG IVP SCH (22:00)
== END 2023-09-20 11:45 | disposition home or self-care (01) ==
LOC: ED 17:56 → SCU 17:56
PROVIDERS: ADMIT Nurse Practitioner Family; ATTEND Hospitalist
DX: I51.7 Cardiomegaly; I25.10 Atherosclerotic heart disease of native coronary artery without angina pectoris; E78.5 Hyperlipidemia, unspecified; R06.02 Shortness of breath; E11.9 Type 2 diabetes mellitus without complications; D64.9 Anemia, unspecified; R07.9 Chest pain, unspecified; Z86.73 Personal history of transient ischemic attack (TIA), and cerebral infarction without residual deficits; R91.1 Solitary pulmonary nodule; I10 Essential (primary) hypertension; U07.1 COVID-19